=== PATIENT | male | born 1955 | race Caucasian/White ===

== ENCOUNTER 2022-03-13 14:40 | Outpatient (CLI) | payer MEDICARE, SELFPAY ==
--- NOTE | 2022-03-13 14:57 | USCV_ITS ---
sourav Castillo Leyva Age: 66 Gender: M : 1955 Exam Date: 03/13/2022 15:04 Ordering Phys: o Technologist: Miquel Marley [place] [facility] [place] [place]: CVA BP: 140 / 80 HR: 65 Rhythm: Sinus Technical Quality: Adequate MEASUREMENTS (Male / Female) Normal Values 2D ECHO LV Diastolic Diameter PLAX 5.1 cm 4.2 - 5.9 / 3.9 - 5.3 cm LV Systolic Diameter PLAX 4.5 cm IVS Diastolic Thickness 1.3 cm 0.6 - 1.0 / 0.6 - 0.9 cm IVS Systolic Thickness 1.8 cm LVPW Diastolic Thickness 1.3 cm 0.6 - 1.0 / 0.6 - 0.9 cm LVPW Systolic Thickness 1.5 cm LVOT Diameter 2.8 cm LV Ejection Fraction 2D Teich 8.4 % LV Ejection Fraction MOD 2C 38.9 % LV Ejection Fraction 2C AL 40.3 % LA Diameter 3.6 cm Aorta at Sinotubular Diameter 3.8 cm M-MODE Aortic Annulus Diameter 4.3 cm LA Ao Ratio MM 0.9 MV E Point Septal Separation 2.3 cm DOPPLER AV Peak Velocity 178.0 cm/s LVOT Peak Velocity 82.0 cm/s AV Area Cont Eq vti 3.0 cm squared AV Area Cont Eq pk 2.8 cm squared MV Area PHT 5.0 cm squared Mitral E to A Ratio 1.0 MV E' Velocity 43.5 cm/s Mitral E to MV E' Ratio 16.1 Mitral E to LV E' Lateral Ratio 16.1 Mitral E to LV E' Septal Ratio 16.4 TR Peak Velocity 224.7 cm/s TR Peak Gradient 20.2 mmHg TV Peak E Velocity 71.0 cm/s Right Atrial Pressure 3.0 mmHg Pulmonary Artery Systolic Pressu 23.2 mmHg PV Peak Velocity 88.0 cm/s FINDINGS Left Ventricle Normal left ventricular size. LV systolic function is moderate to severely reduced with EF of 30-35%. Moderate to severe global hypokinesis seen. Grade 2 diastolic dysfunction Right Ventricle The right ventricle is normal in size and function. Right Atrium The right atrium is normal in size. Left Atrium The left atrium is normal in size. Mitral Valve Structurally normal mitral valve without significant stenosis or prolapse. There is mild mitral regurgitation. Aortic Valve Aortic valve is thickened without significant stenosis. There is mild aortic regurgitation. Tricuspid Valve Structurally normal tricuspid valve without significant stenosis or regurgitation. Insufficient TR jet to calculate RVSP Pulmonic Valve Not well visualized Pericardium Normal pericardium without effusion. Aorta Ascending aorta is dilated. IVC CONCLUSIONS LV systolic function is moderate to severely reduced with EF of 30-35%. Moderate to severe global hypokinesis seen. Grade 2 diastolic dysfunction There is mild mitral regurgitation. There is mild aortic regurgitation. Ascending aorta is dilated and measures 4.11 cm in diameter. Recommend CTA to accuarately assess the size No comparison studies are available Eric Quevedo MD (Electronically Signed) Final Date: 23 Mar 2022 23:31 S
== END 2022-03-13 14:41 | disposition home or self-care (01) ==
LOC: RAD 14:47
PROVIDERS: Visit Provider Family Medicine
DX: I50.9 Heart failure, unspecified (principal)
CPT/HCPCS: 93306

== ENCOUNTER → 2022-06-03 10:01 | Outpatient (BNVA) | payer MEDICARE, SELFPAY | PROVIDERS: PCP Family Medicine; Visit Provider Internal Medicine Cardiovascular Disease | DX: I11.0 Hypertensive heart disease with heart failure (principal); I50.9 Heart failure, unspecified; Z82.49 Family history of ischemic heart disease and other diseases of the circulatory system; Z87.891 Personal history of nicotine dependence | CPT/HCPCS: 99204 ==

== ENCOUNTER 2022-06-24 14:18 | Outpatient (CLI) | payer MEDICARE, SELFPAY ==
[2022-06-24 14:48] LABS: Basophils # 0.1 10^3/uL (0.0-0.1); Basophils % 0.5 %; Eosinophils # 0.3 10^3/uL (0.0-0.8); Eosinophils % 2.8 %; Hematocrit 46.3 % (42.0-52.0); Hemoglobin 15.1 g/dL (11.7-16.6); Lymphocytes % 10.4 %; Mean Corpuscular HGB Conc 32.6 g/dL (30.0-36.0); Monocytes # 0.8 10^3/uL (0.2-0.9); Monocytes % 7.9 %; Neutrophils % 77.6 %; Nucleated Red Blood Cells % 0 %; Platelet Count 255 10^3/cmm (130-400); Red Blood Count 5.03 10^6/uL (4.1-5.3); Red Cell Distribution Width 13.2 % (12.1-15.1); White Blood Count 9.7 10^3/uL (4.0-10.0)
[2022-06-24 14:54] LABS: INR 0.89 (0.83-1.21); Prothrombin Time (Patient) 12.3 Seconds (12.0-15.1)
[2022-06-24 15:15] LABS: Anion Gap 17.7 (5-19); Blood Urea Nitrogen 28 mg/dL (8-23); Carbon Dioxide 23 mmol/L (22-29); Chloride 104 mmol/L (98-107); Glomerular Filtration Rate 55.4 mL/min (90-130); Glucose 137 mg/dL (65-115); NT Pro B Type Natriuretic Pept 206 pg/mL (0-125); Osmolality Calculated 298 mOsm/kg (285-295); Potassium 4.7 mmol/L (3.5-5.1); Sodium 140 mmol/L (136-145)
== END 2022-06-24 14:19 | disposition home or self-care (01) ==
LOC: LAB 14:22
PROVIDERS: PCP Family Medicine; Visit Provider Internal Medicine Cardiovascular Disease
DX: I10 Essential (primary) hypertension (principal); I50.9 Heart failure, unspecified
CPT/HCPCS: 36415; 80048; 83735; 83880; 85025; 85610

== ENCOUNTER 2022-06-27 08:44 | Outpatient (CLI) | payer MEDICARE, SELFPAY ==
[2022-06-27] VITALS (14 sets, daily range): BP systolic 115–139; BP diastolic 63–95; PULSE 46–68; RESP 13–20; TEMP 36.7; O2SAT 85–100; BMI 26.6
--- NOTE | 2022-06-27 09:19 | XACV_ITS ---
Exam Room: 2 Ht: 183 cm Wt: 89 kg BSA: 2.14 m2 Gender: Male : 1955 Any Known Allergies: No known allergies Exam Priority: Routine Procedure(s): Procedure Description: Diagnostic procedure Procedure Description: Right Heart Catheterization Procedure Description: O2 saturation Procedure Description: Coronary Angiography Diagnostic Cath Status: Elective Diagnostic Findings * Coronary angiography shows right dominance. * Normal left main with no disease. * Normal circumflex with minor irregularities. * Severe 80% proximal LAD stenosis. VONNIE 3 flow. * Moderate 60 stenosis in posterior descending artery. TIMI3 flow. M * inor irregularities in proximal and mid right coronary artery. * Case was discussed and images were reviewed with Dr. Kaur. Decision was made to proceed with stenting of proximal LAD lesion later today. Conclusions 1. Severe 80% proximal LAD stenosis. VONNIE 3 flow. 2. Moderate 60% stenosis in posterior descending artery. 3. Mild pre capillary pulmonary hypertension with mPAP of 27 mm Hg. PVR 2 LIANG and DPG<7 mm Hg. 4. Case was discussed and images were reviewed with Dr. Kaur. Decision was made to proceed with stenting of proximal LAD lesion later today. Recommendations * Plan to load with plavix 600 mg. * Statin and aspirin 81mg lifelong, if tolerated. * Return to inpatient for close monitoring and routine cath care. Pressures Phase:Rest AO : 136 / 66 ( 92 ) @ 11:22:00 AM 144 / 73 ( 99 ) @ 11:25:00 AM 124 / 81 ( 101 ) @ 11:32:00 AM 126 / 78 ( 104 ) @ 11:40:00 AM RV : 40 / 8 / 14 @ 10:52:00 AM PA : 40 / 16 ( 27 ) @ 10:53:00 AM RA : a wave = 17 v wave = 15 mean = 13 @ 10:51:00 AM PCW : a wave = 17 v wave = 16 mean = 15 @ 10:53:00 AM a wave = 16 v wave = 16 mean = 15 @ 10:53:00 AM Hemodynamic Findings Right atrial pressures are elevated at 13 mmHg. Mild pulmonary hypertension with PAP of 40/16, mean PAP 27 mm Hg. Pulmonary vascular resistance of 2 LIANG. Pulmonary artery wedge pressures is upper normal at 15 mm Hg. Cardiac output by Connie method is normal. No evidence of step up in saturations. O2 Content Phase:Rest PA : O2 Content O2: 78.5 @ 11:40:00 AM Saturations Phase:Rest AO : 97 @ 11:32:00 AM RA : 74 @ 11:25:00 AM RV : 77 @ 11:22:00 AM PA : 79 @ 11:40:00 AM Cardiac Output Phase:Rest Connie : 6 @ 10:51:09 AM Connie Cardiac Index: 3 @ 10:51:09 AM Flow Phase:Rest Qp : 6 @ 10:51:09 AM Qs : 5 @ 10:51:09 AM Clinical Evaluation EBL: 5mL-10mL Procedural Details Pre-Procedure Time Out. Identified patient by full name and date of as verbalized by the patient/guarantor. Does the consent match the physician's order: Yes. Accurate & Complete Informed Consent: Yes. Inpatient/Outpatient History & Physical on Chart: Yes. If H&P is completed, is and addenduem needed: No; If yes, is the addendum complete: N/A. Visualize and Verify Site with Patient/Guarantor: N/A. Relevant Radiology Images available: Yes. Pre-op teaching completed and patient verbalized understanding. The risks, benefits, and alternatives of sedation and/or procedure were discussed by physician. The patient agrees to continue. Procedure started. [facility] Clinical Fraility Score: 3: Managing Well. Installation Engineer Indications: Other. Correct patient, site and procedure confirmed by cath team. PERRLA. Strong, equal hand slag motor operator bilaterally. Lungs clear x 5 lobes. IV Site on Arrival: Saline Lock. A 20 gauge IV was started in the right anticubital using aseptic technique. A 20 gauge IV was started in the left anticubital using aseptic technique. IV Fluids: 0.9% NaCl at KVO. 0 mL infused prior to dentures lab technician. Pre Procedural Pulses: bilateral dorsalis pedis was 3+. Pre Procedural Pulses: bilateral radial was 3+. right groin was prepped with chloroprep then draped in the usual sterile fashion. right radial was prepped with chloroprep then draped in the usual sterile fashion. right brachial was prepped with chloroprep then draped in the usual sterile fashion. Physician arrived. Physician scrubbed in. Immediate Pre-Procedure Time Out. Correct Patient: Yes; Correct Procedure: Yes; Correct Site: Yes; Correct Patient Position: Yes; Correct Supplies: Yes; Dried Flammable Prep: Yes; Blood Products Available: N/A;. Lidocaine 1% infiltrated to the right brachial. sheath wire inserted through the IV catheter. IV catheter out OTW. [place]-Sabrina MON catheter inserted. 0.025 wire inserted through the swan catheter. wire out. Oximetry samples were obtained. Normal venous range: 60-85%. Normal arterial range: 95-100%. Pressure measurements obtained. [place]-Sabrina out. Lidocaine 1% infiltrated to the right radial. Arterial access obtained. wire and needle out. Arterial access obtained. wire and needle out. Unable to obtain radial access. MD attempting to gain access in the Femoral artery. TR band placed. Hemostasis obtained. Lidocaine 1% infiltrated to the right groin. Arterial access obtained. wire and needle out. Arterial access obtained. A 5 australian JL4 catheter in over wire. Catheter out. A 5 australian JL5 catheter in over wire. Multiple views taken of left coronary artery. Catheter removed over the standard wire. Dr. Kaur called to review films. A 5 australian JR4 catheter in over wire. Multiple views taken of right coronary artery. Catheter removed over the standard wire. Vital chart was stopped. A Suture was successful obtaining hemostatsis at the Right Femoral artery insertion site. A Manual Compression was successful obtaining hemostatsis at the Right Brachial Vein insertion site. Sheath(s) sutured into position with 2-0 silk and sterile 4x4's and Op-site applied over the site. No oozing or signs and symptoms of hematoma noted. Arterial sheath flushed and connected to tranducer and pressure bag with heparinized saline. Post Procedure: Pulses reassessed and unchanged. PERRLA. Strong, equal hand slag motor operator bilaterally. No VTE prophylaxis required. Medication's Wasted: Heparin = 4000 units. Total IV fluids: 95 mL. Post-op diagnosis: CAD. Complications: None. Estimated blood loss: 5mL-10mL. Responsiveness - Normal response to verbal stimuli; alert and oriented, PERRLA. Airway - Unaffected, no intervention required; spontaneous ventilation. Circulation: W/N/L, pulses unchanged. Nausea/Vomiting: No. Procedure completed. Patient transferred by bed to ICU. Access Site Site: Right Brachial Vein Sheath Size: 6 Fr Hemostasis Method: Manual Compression Hemostasis Success: Successful Site: Right Femoral artery Sheath Size: 6 Fr Hemostasis Method: Suture Hemostasis Success: Successful Procedure Medications Start: 9:32 AM Stop: 9:32 AM Medication: Versed 1 mg and Fentanyl 25 mcg Amount: 1 Route: I.V. Start: 10:00 AM Stop: 10:00 AM Medication: Versed Amount: 1 mg Route: I.V. Start: 10:43 AM Stop: 10:43 AM Medication: Versed Amount: 1 mg Route: I.V. I, the attending physician, have reviewed and verified all procedure medications. Yes, all medications given per verbal order History/Risk Factors Hypertension: Yes Dyslipidemia: No Peripheral Arterial Disease (PAD): No Myocardial Infarction (ID): No Obesity: No Renal Disease: No Tobacco Use: Former Prior Interventions PCI: No CABG: No Valve Surgery: No Report Signatures Finalized by Radha Nation MD on 07/10/2022 12:26 PM
--- NOTE | 2022-06-27 09:36 | W.PM.OPSUD ---
Surgery/Procedure H&P Update DATE OF PROCEDURE: June 27, 2022 DATE H&P PERFORMED: 06/03/22 H&P UPDATE INFORMATION: I have reviewed H&P completed within last 30 days, I have examined patient prior to procedure and No changes to prior documentation PREOP DIAGNOSIS: Newly diagnosed cardiomyopathy PRIMARY INDICATION FOR PROCEDURE: Newly diagnosed cardiomyopathy PLANNED PROCEDURE: Operation Date: 06/27/22 08:30 Proposed Procedures p [facility] w/wo [id number],I50.90(Left) - Radha Nation MD PATIENT REASSESSED PRIOR TO SEDATION, WITH NO CHANGE NOTED: Yes PHYSICAL EXAM: alert, oriented x 3, clear to auscultation bilaterally and regular rate & rhythm AIRWAY EVAL/ANESTHESIA PLAN: normal airway, ASA III, Monitored Anesthesia, Local Anesthesia, Risks, benefits & alternatives of sedation and/or procedure discussed and Patient agrees to continue as planned
[2022-06-27 10:28] LABS: ABG PCO2 43.5 mmHg (35-45); ABG PH Result 7.37 (7.35-7.45); Blood Gas Operator Identificat CAK; Blood Gas Sample Type Not specified; PO2 ABG 40.9 mmHg (80.0-100.0)
[2022-06-27 10:30] LABS: ABG PCO2 39.9 mmHg (35-45); ABG PH Result 7.38 (7.35-7.45); Arterial Blood Gas Hematocrit 36.8 % (42-52); Base Excess ABG -1.5 mmol/L (-2.0-2.0); Blood Gas Operator Identificat CAK; Blood Gas Sample Type Not specified; HCO3 ABG 23.5 mmol/L (22-26); PO2 ABG 80.4 mmHg (80.0-100.0)
[2022-06-27 10:31] LABS: ABG PCO2 44.3 mmHg (35-45); ABG PH Result 7.37 (7.35-7.45); Blood Gas Operator Identificat CAK; Blood Gas Sample Type Not specified; HCO3 ABG 25.6 mmol/L (22-26); PO2 ABG 36.8 mmHg (80.0-100.0)
[2022-06-27 10:33] LABS: ABG PH Result 7.37 (7.35-7.45); Blood Gas Operator Identificat CAK; Blood Gas Sample Type Not specified; HCO3 ABG 23.2 mmol/L (22-26); PO2 ABG 39.2 mmHg (80.0-100.0)
--- NOTE | 2022-06-27 11:22 | PC.NURSE ---
Arrived from director of cardiac cath lab, R groin sheath to stay in place until intervention can be performed. R wrist TR band site dr and intact with 10 ml air
[2022-06-27] MEDS: aspirin 81 mg Chew Tablet 324 MG PO (11:33)
[2022-06-27] MEDS: clopidogrel 300 mg Tablet 600 MG PO (11:33)
--- NOTE | 2022-06-27 12:57 | PC.NURSE ---
Dr. Nation called, gave t.o. to hold IV fluids until after the cath and may place buckner if needed
--- NOTE | 2022-06-27 13:57 | XACV_ITS ---
Exam Room: [facility] Ht: 183 cm Wt: 89 kg BSA: 2.14 m2 Gender: Male : 1955 Any Known Allergies: No known allergies Exam Priority: Routine Procedure(s): Procedure Description: Diagnostic procedure Procedure Description: Coronary Angiography Diagnostic Cath Status: Elective Diagnostic Findings * Coronary angiography had been performed earlier today by Dr. Nation. A significant proximal LAD lesion was identified and it was requested he undergo intervention. I took a few more views in order to better delineate the lesion. There is a 80% proximal LAD stenosis. PCI Status: Elective PCI LVEF Assessed: No PCI Indication: New Onset Angina <= 2 months Interventional Findings * The LAD was primarily stented with a 3.5 x 12 mm drug eluting stent. Decision for PCI with Surgical Consult: No PCI for Multi-vessel Disease: No Conclusions 1. Proximal LAD stent. Recommendations * Medical therapy. Interventional RX Recommendation: medical therapy and/or counseling Diagnostic RX Recommendation: medical therapy and/or counseling Anticoagulation: Heparin Pressures Phase:Rest AO : 94 / 50 ( 67 ) @ 3:24:00 PM Clinical Evaluation EBL: 5mL-10mL Procedural Details Procedure Consent Obtained. Pre-Procedure Time Out. Identified patient by full name and date of as verbalized by the patient/guarantor. Does the consent match the physician's order: Yes. Accurate & Complete Informed Consent: Yes. Inpatient/Outpatient History & Physical on Chart: Yes. If H&P is completed, is and addenduem needed: N/A; If yes, is the addendum complete: N/A. Visualize and Verify Site with Patient/Guarantor: N/A. Relevant Radiology Images available: Yes. Pre-op teaching completed and patient verbalized understanding. The risks, benefits, and alternatives of sedation and/or procedure were discussed by physician. The patient agrees to continue. Procedure started. [facility] Clinical Fraility Score: 3: Managing Well. Salvage Clerk Indications: Worsening Angina. Chest Pain Symptom Assessment: Typical Angina Symptoms. Correct patient, site and procedure confirmed by cath team. PERRLA. Strong, equal hand palliative nurse bilaterally. Lungs clear x 5 lobes. Current diagnosis: Chest Pain. IV Site on Arrival: 20 gauge in the left anticubital. IV Fluids: 0.9% NaCl at KVO. 300 mL infused prior to molder labels. Pre Procedural Pulses: bilateral dorsalis pedis was 1+. Oxygen started at 2liters/min via nasal canula. right groin was prepped with chloroprep then draped in the usual sterile fashion. Physician notified. Baseline sample Acquired. HR: 85 BPM. Physician arrived. Physician scrubbed in. Immediate Pre-Procedure Time Out. Correct Patient: Yes; Correct Procedure: Yes; Correct Site: Yes; Correct Patient Position: Yes; Correct Supplies: Yes; Dried Flammable Prep: Yes; Blood Products Available: N/A;. Lidocaine 1% infiltrated to the right groin. Patient arrived with 6 Fr sheath sutured in R groin. 6 greek XB 3 guide catheter was inserted over the wire. Guide catheter out. 6 greek XB 3.5 guide catheter was inserted over the wire. Guide catheter out. 6 greek XB 4.5 guide catheter was inserted over the wire. [place] guidewire was advanced through the guide catheter to lesion in the prox LAD. Inflation Number : 1 Vesna Baltazar MORENA 3.5X12 NEIL -Lot Number# [id number] Exp 09/03/24 was prepped and advanced across the Prox LAD. The stent was deployed at 14 AJ for 0:29 seconds. Results checked. Stent balloon out over wire. Wire out. Guide catheter out. A Suture was successful obtaining hemostatsis at the Right Femoral artery insertion site. Post Procedure: Pulses reassessed and unchanged. Sheath(s) sutured into position with 2-0 silk and sterile 4x4's and Op-site applied over the site. No oozing or signs and symptoms of hematoma noted. PERRLA. Strong, equal hand palliative nurse bilaterally. No VTE prophylaxis required. Medication's Wasted: Lidocaine 1% = 2 mL. Medication's Wasted: Heparin = 1000 u. Total IV fluids: 50 mL. Post-op diagnosis: Obstructive CAD. Complications: none. Estimated blood loss: 5mL-10mL. Responsiveness - Normal response to verbal stimuli; alert and oriented, PERRLA. Airway - Unaffected, no intervention required; spontaneous ventilation. Circulation: W/N/L, pulses unchanged. Nausea/Vomiting: No. Procedure completed. Patient transferred by bed to ICU. Vital chart was stopped. Access Site Site: Right Femoral artery Sheath Size: 6 Fr Hemostasis Method: Suture Hemostasis Success: Successful Procedure Medications Start: 2:13 PM Stop: 2:13 PM Medication: Versed Amount: 1 mg Route: I.V. Start: 2:14 PM Stop: 2:14 PM Medication: Fentanyl Amount: 50 mcg Route: I.V. Start: 2:17 PM Stop: 2:17 PM Medication: Heparin Amount: 5000 units Route: I.V. Start: 2:17 PM Stop: 2:17 PM Medication: 0.9% Saline Amount: 75 ml/hr Route: I.V. drip Start: 2:33 PM Stop: 2:33 PM Medication: Versed Amount: 1 mg Route: I.V. Start: 2:33 PM Stop: 2:33 PM Medication: Fentanyl Amount: 50 mcg Route: I.V. I, the attending physician, have reviewed and verified all procedure medications. Yes, all medications given per verbal order History/Risk Factors Hypertension: Yes Dyslipidemia: No Peripheral Arterial Disease (PAD): No Myocardial Infarction (MO): No Obesity: No Renal Disease: No Tobacco Use: Former Prior Interventions PCI: No CABG: No Valve Surgery: No Report Signatures Finalized by Dr. Haris Kaur MD on 06/27/2022 02:59 PM
--- NOTE | 2022-06-27 14:07 | PC.NURSE ---
patient back in labor and delivery nurse at this time
--- NOTE | 2022-06-27 14:51 | PC.NURSE ---
Back from geophysical laboratory supervisor, R groin site clean dry and intact, oil laboratory analyst staff informed this nurse one stent was placed to LAD
[2022-06-27 17:10] LABS: Partial Thromboplastin Time 55.7 SECONDS (23.9-36.7)
[2022-06-27 18:13] LABS: Partial Thromboplastin Time 34.2 SECONDS (23.9-36.7)
--- NOTE | 2022-06-27 19:28 | PC.NURSE ---
Sheath pulled, Med hematoma formed, site marked. Dr. Nation was notified. order to restart held IV fluids per DEC, if patient sob or signs of fluid over load shut fluids off.
[2022-06-27] MEDS: sodium chloride 0.9% 1,000 ML 100 ML IV (19:49)
[2022-06-28 06:00] VITALS: PULSE 54
[2022-06-28 07:33] LABS: Basophils # 0.1 10^3/uL (0.0-0.1); Basophils % 0.8 %; Eosinophils # 0.2 10^3/uL (0.0-0.8); Eosinophils % 3.8 %; Hematocrit 40.8 % (42.0-52.0); Hemoglobin 13.1 g/dL (11.7-16.6); Lymphocytes # 0.8 10^3/uL (0.8-4.8); Lymphocytes % 13.7 %; Mean Corpuscular HGB Conc 32.1 g/dL (30.0-36.0); Mean Corpuscular Hemoglobin 30.3 pg (28.0-34.0); Mean Corpuscular Volume 94.4 fl (80-94); Mean Platelet Volume 9.8 fL (7.4-10.4); Monocytes # 0.8 10^3/uL (0.2-0.9); Monocytes % 12.4 %; Neutrophils # 4.19 10^3/uL (1.8-7.7); Neutrophils % 69.1 %; Nucleated Red Blood Cells % 0 %; Platelet Count 240 10^3/cmm (130-400); Red Blood Count 4.32 10^6/uL (4.1-5.3); Red Cell Distribution Width 13.3 % (12.1-15.1); White Blood Count 6.1 10^3/uL (4.0-10.0)
[2022-06-28 07:54] LABS: Anion Gap 13.8 (5-19); Blood Urea Nitrogen 24 mg/dL (8-23); Calcium 8.6 mg/dL (8.5-10.5); Carbon Dioxide 28 mmol/L (22-29); Chloride 102 mmol/L (98-107); Glomerular Filtration Rate 50.9 mL/min (90-130); Glucose 89 mg/dL (65-115); Osmolality Calculated 292 mOsm/kg (285-295); Potassium 4.8 mmol/L (3.5-5.1); Sodium 139 mmol/L (136-145)
[2022-06-28] MEDS: clopidogrel 75 mg Tablet PO (08:51)
[2022-06-28] MEDS: aspirin 81 mg EC Tablet PO (08:51)
--- NOTE | 2022-06-28 10:26 | PC.CHAP ---
Pastoral Care Encounter/Spiritual Assessment Type of Contact [] Declined flow match sofa cutter visit [] Patient/Family/Request visit [] Outpatient visit [] Follow-up visit [] Physician referral [] Code/Alert [x] Routine visit [] Staff referral [] Actively dying [] Patient sleeping [] Family support [] [] Out of room [] Palliative care [] [] Receiving care in room [] Pre-surgical visit [] Trauma [] Long length of stay [x] ICU visit [] Other: Relational/Emotional Strength [] Patient feels connected with others/family/visitors/staff [] Distress [] Loneliness/isolation [] Abandonment Spirituality of Patient [] Person of Roberta [] Attends Yazidi of their Roberta [] Believes in Prayer [] Reads Bible or Judaism materials [] There are Spiritual issues to be addressed Safety Leader Interventions [x] Prayer [] Active listening [] Non-anxious presence [] Spiritual/emotional support [] Crisis/trauma care [] Spiritual counseling [] Bereavement support [] Provided bereavement packet [] Provided Bible/devotional materials [] Provided toy/stuffed animal, coloring book to patient or family member [] Provided Communion [] Anointing/Pillow [] Salvation [x] Completed spiritual assessment [] Other: Impact on Illness or Injury [] Angry [] Fearful [] Anxious [] Often cries [] Exhaustion [] Unable to work [] Unable to attend gnosticist [] Unable to walk/stand [] Unable to read [] Unable to drive [] Unable to eat/drink [] Unable to sleep [] Unable to be with family [] Patient intubated [] Other: Summary Time spent with patient
--- NOTE | 2022-06-28 12:00 | PC.NURSE ---
d/c pt provided with discharge information. scripts electronically sent to preferred pharmacy. site to the right groin is CDI small hematoma noted with no changes from initial assessment. No questions or concerns noted with the discharge information. Pt escorted out to personal vehicle with friend Mary Anne.
== END 2022-06-28 11:40 | disposition home or self-care (01) ==
LOC: CCL 08:44 → ICU 11:06
PROVIDERS: Internal Medicine Cardiovascular Disease; PCP Family Medicine; Visit Provider Internal Medicine Cardiovascular Disease
DX: I25.119 Atherosclerotic heart disease of native coronary artery with unspecified angina pectoris (principal); I42.9 Cardiomyopathy, unspecified; I11.0 Hypertensive heart disease with heart failure; I50.9 Heart failure, unspecified; Z82.49 Family history of ischemic heart disease and other diseases of the circulatory system
CPT/HCPCS: 36415; 80048; 82803; 83735; 85025; 85730; 93456; 96360; 99152; 99153; C1751; C1769; C1874; C1887; C1894; C9600; J1644; J2250; J3010; J3490; J7030; Q9967

== ENCOUNTER 2022-07-04 13:16 | Outpatient (CLI) | payer MEDICARE, SELFPAY ==
[2022-07-04 14:04] LABS: Anion Gap 14.6 (5-19); Blood Urea Nitrogen 26 mg/dL (8-23); Calcium 9.1 mg/dL (8.5-10.5); Carbon Dioxide 25 mmol/L (22-29); Chloride 103 mmol/L (98-107); Glomerular Filtration Rate 43.6 mL/min (90-130); Glucose 82 mg/dL (65-115); Osmolality Calculated 290 mOsm/kg (285-295); Potassium 4.6 mmol/L (3.5-5.1); Sodium 138 mmol/L (136-145)
== END 2022-07-04 13:17 | disposition home or self-care (01) ==
LOC: LAB 13:17
PROVIDERS: PCP Family Medicine; Visit Provider Nurse Practitioner Family
DX: I10 Essential (primary) hypertension (principal); I50.9 Heart failure, unspecified
CPT/HCPCS: 80048

== ENCOUNTER → 2022-07-08 13:15 | Outpatient (BNVA) | payer MEDICARE, SELFPAY | PROVIDERS: PCP Family Medicine; Visit Provider Nurse Practitioner Family | DX: I25.10 Atherosclerotic heart disease of native coronary artery without angina pectoris (principal); I11.0 Hypertensive heart disease with heart failure; I50.9 Heart failure, unspecified; Z87.891 Personal history of nicotine dependence | CPT/HCPCS: 99214 ==

== ENCOUNTER 2022-11-08 07:05 | Outpatient (CLI) | payer MEDICARE, SELFPAY ==
--- NOTE | 2022-11-08 | USCV_ITS ---
Castillo Leyva Age: 66 Gender: M : 1955 Exam Date: 11/08/2022 07:34 Ordering Phys: Radha Nation MD ([email or web address]) Technologist: [place] [facility] [place]: ? left vent function BP: 140 / 80 HR: 71 Rhythm: Sinus Technical Quality: MEASUREMENTS (Male / Female) Normal Values 2D ECHO LV Diastolic Diameter PLAX 5.8 cm 4.2 - 5.9 / 3.9 - 5.3 cm LV Systolic Diameter PLAX 4.2 cm IVS Diastolic Thickness 1.3 cm 0.6 - 1.0 / 0.6 - 0.9 cm IVS Systolic Thickness 1.7 cm LVPW Diastolic Thickness 1.2 cm 0.6 - 1.0 / 0.6 - 0.9 cm LVPW Systolic Thickness 1.7 cm LVOT Diameter 2.0 cm LV Ejection Fraction 2D Teich 52.6 % LV Ejection Fraction MOD 2C 57.3 % LV Ejection Fraction 2C AL 57.7 % LA Diameter 3.9 cm Aorta at Sinotubular Diameter 4.1 cm M-MODE Aortic Annulus Diameter 3.6 cm LA Ao Ratio MM 1.1 MV E Point Septal Separation 1.6 cm FINDINGS Left Ventricle Normal left ventricular size, systolic function and wall thickness, with no regional wall motion abnormalities. Left ventricular ejection fraction is estimated at 55 %. Right Ventricle Normal right ventricular size and systolic function. Right Atrium Normal right atrial size. Left Atrium Mildly increased left atrial size. Mitral Valve Mildly thickened mitral valve. Aortic Valve Structurally normal trileaflet aortic valve. Tricuspid Valve Structurally normal tricuspid valve. Pulmonic Valve Structurally normal pulmonic valve. Pericardium No pericardial effusion. Aorta Mildly dilated ascending aorta measuring 42 mm. IVC Inferior vena cava not visualized. CONCLUSIONS 1. Normal left ventricular size, systolic function and wall thickness, with no regional wall motion abnormalities. Left ventricular ejection fraction is estimated at 55 %. 2. When compared to study dated 03/13/22, left ventricular systolic function has improved. Radha Nation MD (Electronically Signed) Final Date: 11 November 2022 09:40 S
== END 2022-11-08 07:06 | disposition home or self-care (01) ==
PROVIDERS: PCP Family Medicine; Visit Provider Internal Medicine Cardiovascular Disease
DX: R06.02 Shortness of breath (principal)
CPT/HCPCS: 93308; 99214

== ENCOUNTER → 2023-03-26 15:32 | Outpatient (BNVA) | payer MEDICARE, SELFPAY | PROVIDERS: PCP Family Medicine; Visit Provider Internal Medicine Cardiovascular Disease | DX: I25.10 Atherosclerotic heart disease of native coronary artery without angina pectoris (principal); E78.5 Hyperlipidemia, unspecified; I11.0 Hypertensive heart disease with heart failure; I50.9 Heart failure, unspecified; Z82.49 Family history of ischemic heart disease and other diseases of the circulatory system; Z87.891 Personal history of nicotine dependence; Z79.82 Long term (current) use of aspirin | CPT/HCPCS: 99214 ==

== ENCOUNTER → 2023-06-14 16:36 | Outpatient (BNVA) | payer MEDICARE, SELFPAY | PROVIDERS: PCP Family Medicine; Visit Provider Registered Nurse Neonatal Intensive Care | DX: R30.0 Dysuria (principal); N39.0 Urinary tract infection, site not specified; R31.9 Hematuria, unspecified | CPT/HCPCS: 81000; 87077; 87086; 87184 ==

== ENCOUNTER → 2024-01-07 10:48 | Outpatient (BNVA) | payer MEDICARE, SELFPAY | PROVIDERS: PCP Family Medicine; Visit Provider Nurse Practitioner Family | DX: I11.0 Hypertensive heart disease with heart failure (principal); I50.9 Heart failure, unspecified; E78.5 Hyperlipidemia, unspecified; I25.10 Atherosclerotic heart disease of native coronary artery without angina pectoris; Z87.891 Personal history of nicotine dependence | CPT/HCPCS: 36415; 80048; 80061; 99214 ==

== ENCOUNTER → 2024-01-15 10:51 | Outpatient (BNVA) | payer MEDICARE, SELFPAY | PROVIDERS: PCP Family Medicine; Visit Provider Dermatology | DX: D48.5 Neoplasm of uncertain behavior of skin (principal); L63.1 Alopecia universalis; S60.041A Contusion of right ring finger without damage to nail, initial encounter; X58.XXXA Exposure to other specified factors, initial encounter; D18.01 Hemangioma of skin and subcutaneous tissue; L57.8 Other skin changes due to chronic exposure to nonionizing radiation | CPT/HCPCS: 11102; 69100; 99203 ==

== ENCOUNTER → 2024-02-16 08:24 | Outpatient (BNVA) | payer MEDICARE, SELFPAY | PROVIDERS: PCP Family Medicine; Visit Provider Dermatology | DX: C44.219 Basal cell carcinoma of skin of left ear and external auricular canal (principal); C44.41 Basal cell carcinoma of skin of scalp and neck | CPT/HCPCS: 13121; 15260; 17311 ==

== ENCOUNTER → 2024-02-26 11:24 | Outpatient (BNVA) | payer MEDICARE, SELFPAY | PROVIDERS: PCP Family Medicine; Visit Provider Nurse Practitioner Family | DX: Z48.02 Encounter for removal of sutures (principal) | CPT/HCPCS: 99212 ==

== ENCOUNTER → 2024-04-01 11:23 | Outpatient (BNVA) | payer MEDICARE, SELFPAY | PROVIDERS: PCP Family Medicine; Visit Provider Dermatology | DX: L57.0 Actinic keratosis (principal); L81.4 Other melanin hyperpigmentation; L57.8 Other skin changes due to chronic exposure to nonionizing radiation; Z48.817 Encounter for surgical aftercare following surgery on the skin and subcutaneous tissue | CPT/HCPCS: 17000; 99213 ==

== ENCOUNTER 2024-06-17 23:34 | Inpatient (IN) | payer MEDICARE, SELFPAY ==
[2024-06-17 23:36] VITALS: BP 155/103; PULSE 146; RESP 18; TEMP 36.5; O2SAT 96; BMI 29.8
--- NOTE | 2024-06-17 23:39 | ECG_ITS ---
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 Measurements Intervals [place] Rate: 144 P: 0 DE: 0 QRS: -57 QRSD: 95 T: 71 QT: 269 QTc: 417 Interpretive Statements ATRIAL FIBRILLATION WITH RAPID VENTRICULAR RESPONSE PATTERN CONSISTENT WITH PULMONARY DISEASE LEFT ANTERIOR FASCICULAR BLOCK [QRS AXIS <= -45, QR IN I, RS IN II] MODERATE ST DEPRESSION [0.05+ mV ST DEPRESSION] No previous ECG available for comparison Electronically Signed On 06-18-2024 11:29:00 CDT by Eric Quevedo M.D. [email or web address]
--- NOTE | 2024-06-17 23:43 | XRR_ITS ---
PROCEDURE INFORMATION: Exam: XR Chest Exam date and time: 06/17/2024 11:58 PM Age: 68 years old Clinical indication: Pain; Chest pressure; Prior surgery; Surgery date: 6+ months; Surgery type: Stents; Additional info: Chest pain tachycardia TECHNIQUE: Imaging protocol: Radiologic exam of the chest. Views: 1 view. COMPARISON: No relevant prior studies available. FINDINGS: Lungs: Unremarkable. No consolidation. Pleural spaces: Unremarkable. No pleural effusion. No pneumothorax. Heart/Mediastinum: Unremarkable. No cardiomegaly. Bones/joints: Unremarkable. XR/XR chest 1V portable 69000 IMPRESSION: No acute findings.
--- NOTE | 2024-06-17 23:44 | ED_ITS ---
HPI - Chest Pain 2 General: Chief Complaint: Chest Pain Stated Complaint: Chest Pains Time Seen by Provider: 06/17/24 23:40 History of Present Illness: Presents to the ER with a complaint of fast heart rate and chest pain radiating to his left arm. Patient said this started about 20 minutes ago at his home. He has never had this before. Patient does have a cardiac history with 1 stent placed about a year ago. Patient is currently on Plavix. Patient used to see Dr. Nation. Patient is denying any nausea vomiting diaphoresis shortness of breath. Related Data Home Medications Medication Instructions Recorded Confirmed albuterol sulfate 90 mcg/actuation 2 puff inhalation Q6H PRN 06/03/22 01/07/24 aerosol inhaler Bronchodilation lisinopril 20 mg tablet 20 mg PO DAILY 09/24/22 01/07/24 Previous Rx's Medication Instructions Recorded aspirin 81 mg tablet,delayed 81 mg PO DAILY #90 tabs 06/28/22 release furosemide 40 mg tablet 40 mg PO DAILY #90 tabs 06/28/22 nitroglycerin 0.4 mg sublingual 0.4 mg sublingual Q5M PRN Chest 06/28/22 tablet Pain #30 tabs atorvastatin 20 mg tablet 20 mg PO BEDTIME #90 tabs 12/09/22 clopidogrel 75 mg tablet 75 mg PO DAILY #90 tabs 06/03/23 sulfamethoxazole 800 1 tab PO BID 7 days #14 tabs 06/14/23 mg-trimethoprim 160 mg tablet (Bactrim DS) Allergies Allergy/AdvReac Type Severity Reaction Status Date / Time No Known Allergies Allergy Verified 01/07/24 10:53 Review of Systems 2 General: Reports: 10 or more systems reviewed and unremarkable except in HPI and below PFSH ED 2 PFSH: Medical History Dyslipidemia Atherosclerosis of coronary artery CHF (congestive heart failure) Family history of ischemic heart disease and other diseases of the circulatory system HTN (hypertension) Surgical History S/P appendectomy S/P hernia repair S/P knee surgery Family History Mother Congestive heart failure (CHF) Hypertension Father Myocardial infarction Hx of CABG Social History Smoking and tobacco/nicotine status: former use of tobacco/nicotine Physical Exam 2 Const: COMMON NORMALS: no acute distress, average body habitus, patient oriented x3, no limitations, healthy appearing, alert and well nourished HENMT: COMMON NORMALS: normocephalic, atraumatic, hearing grossly normal bilaterally, external ears normal, Normal external nose present and moist oral mucous membranes HEAD & SCALP: normocephalic and atraumatic NOSE: Normal external nose present EXTERNAL EAR: Yes external ears normal Neck/C-Spine: COMMON NORMALS: no JVD Chest: COMMONS NORMALS: normal inspection of the chest and normal palpation of entire chest wall Resp: COMMON NORMALS: normal respiratory effort, No retractions, No use of accessory muscles and clear to auscultation bilaterally AUSCULTATION: clear to auscultation bilaterally Cardio: COMMON NORMALS: no JVD, S1 normal heart sound present, S2 normal heart sound present, No gallops present (Cardio), No clicks present (Cardio), No murmurs present (Cardio) and No rub (Cardio); negative for regular rate (Irregularly irregular tachycardic rhythm) and negative for regular rhythm RATE: abnormal rate (Irregularly irregular tachycardic rhythm) RHYTHM: abnormal rhythm HEART SOUNDS: S1 normal heart sound present and S2 normal heart sound present GI: COMMON NORMALS: Normal to inspection, nondistended, normoactive bowel sounds present, Soft to palpation, non-tender, No hepatosplenomegaly present and no masses PALPATION: Yes Soft to palpation and Yes No hepatosplenomegaly present Neuro: COMMON NORMALS: patient oriented x3 SENSORIUM/ORIENTATION: Yes alert Course 2 Vital Signs: Vital signs: Vital Signs Temperature 97.7 F 06/17/24 23:36 Pulse Rate 63 06/18/24 03:04 Respiratory Rate 14 06/18/24 03:04 Blood Pressure 123/54 06/18/24 03:04 Pulse Oximetry 94 06/18/24 03:04 Oxygen Delivery Me thod Room Air 06/17/24 23:36 MDM - Chest Pain Medical Decision Making Patient given 20 mg of Cardizem IV push fluids heart rate down from the proximal 146 beats a minute to 65 beats minute this immediately made the patient feel better no chest pain 1 night. Lab work was obtained which showed initial troponin 25, 2-hour troponin come back elevated at 63.27 for delta of 38.27. Patient has been chest pain-free this entire time. UA did show patient probably has a urinary tract infection. Patient be placed on Cipro. Discussed this patient with Dr. Spring. Will place him in observation on MedSurg. Start Lovenox 1 mg/kg Differential Diagnosis Unlikely acute massive pulmonary embolism, acute respiratory failure, acute myocardial infarction, cardiac arrest or sudden cardiac Medical Records I reviewed the patient's medical records. Lab Data I reviewed the patient's lab results. 06/17/24 23:42 06/17/24 23:42 Radiology Impressions Chest X-Ray 06/17/24 23:43 IMPRESSION: No acute findings. Laboratory Results WBC 6.64 10^3/uL (3.29-11.43) 06/17/24 23:42 RBC 5.58 10^6/uL (3.85-5.65) 06/17/24 23:42 Hgb 17.10 g/dL (11.27-16.99) H 06/17/24 23:42 Hct 52.4 % (37-53) 06/17/24 23:42 MCV 93.9 fl (82-101) 06/17/24 23:42 MCH 30.6 pg (27-33) 06/17/24 23:42 MCHC 32.6 g/dL (30-55) 06/17/24 23:42 RDW 14.5 % (12.1-15.1) 06/17/24 23:42 Plt Count 205 10^3/cmm (157-399) 06/17/24 23:42 MPV 9.9 fL (7.4-10.4) 06/17/24 23:42 Neut % (Auto) 60.7 % 06/17/24 23:42 Lymph % (Auto) 21.1 % 06/17/24 23:42 [place] % (Auto) 8.7 % 06/17/24 23:42 Eos % (Auto) 8.4 % 06/17/24 23:42 Baso % (Auto) 0.8 % 06/17/24 23:42 Neut # (Auto) 4.03 10^3/uL (1.8-7.7) 06/17/24 23:42 Lymph # (Auto) 1.4 10^3/uL (0.8-4.8) 06/17/24 23:42 [place] # (Auto) 0.6 10^3/uL (0.2-0.9) 06/17/24 23:42 Eos # (Auto) 0.6 10^3/uL (0.0-0.8) 06/17/24 23:42 Baso # (Auto) 0.1 10^3/uL (0.0-0.1) 06/17/24 23:42 Nucleated RBC % (auto) 0 % 06/17/24 23:42 Nucleated RBCs # 0.0 /100WBC 06/17/24 23:42 PT 12.20 SECONDS (12.1-14.9) 06/17/24 23:42 INR 0.88 (0.8-1.2) 06/17/24 23:42 Sodium 138 mmol/L (136-145) 06/17/24 23:42 Potassium 4.6 mmol/L (3.5-5.1) 06/17/24 23:42 Chloride 102 mmol/L (98-107) 06/17/24 23:42 Carbon Dioxide 23 mmol/L (22-29) 06/17/24 23:42 Anion Gap 17.6 (5-19) 06/17/24 23:42 BUN 20 mg/dL (8-23) 06/17/24 23:42 Creatinine 1.3 mg/dL (0.7-1.2) H 06/17/24 23:42 GFR Calculation 55.1 mL/min (90-130) L 06/17/24 23:42 Glucose 159 mg/dL (65-115) H 06/17/24 23:42 Calculated Osmolality 292 mOsm/kg (285-295) 06/17/24 23:42 Calcium 9.2 mg/dL (8.5-10.5) 06/17/24 23:42 Total Bilirubin 0.3 mg/dL (0.15-1.2) 06/17/24 23:42 AST 21 U/L (0-40) 06/17/24 23:42 ALT 14 U/L (0-41) 06/17/24 23:42 Alkaline Phosphatase 84 U/L (40-130) 06/17/24 23:42 Troponin T Baseline 25 ng/L (0-15) H 06/17/24 23:42 Troponin T 120 Minute 63.27 ng/L (0-15) H 06/18/24 01:41 Delta Troponin T 38.27 ABS# (0-10) H* 06/18/24 01:41 Total Protein 7.9 g/dL (6.6-8.7) 06/17/24 23:42 Albumin 4.3 g/dL (3.5-5.2) 06/17/24 23:42 Globulin 3.6 g/dL (1.3-4.6) 06/17/24 23:42 Urine Color Yellow (Yellow) 06/18/24 00:51 Urine Appearance Cloudy (CLEAR) A 06/18/24 00:51 Urine pH 7.0 (5-7) 06/18/24 00:51 Ur Specific [place] 1.007 (1.005-1.030) 06/18/24 00:51 Urine Protein Negative (Negative) 06/18/24 00:51 Urine Glucose (UA) Negative (Normal) 06/18/24 00:51 Urine Ketones Negative (Negative) 06/18/24 00:51 Urine Blood Non-haemolysed trace (Negative) 06/18/24 00:51 Urine Nitrate Positive (Negative) A 06/18/24 00:51 Urine Bilirubin Negative (Negative) 06/18/24 00:51 Urine Urobilinogen 0.2 mg/dL (Negative) 06/18/24 00:51 Ur Leukocyte Esterase 3+ (Negative) A 06/18/24 00:51 Urine RBC 0-2 /hpf (0-2) 06/18/24 00:51 Urine WBC >100 /hpf (0-5) H 06/18/24 00:51 Ur Squamous Epith Cells 0-5 /hpf (0-5) 06/18/24 00:51 Amorphous Sediment Not Reportable 06/18/24 00:51 Urine Bacteria 4+ /hpf (NONE) H 06/18/24 00:51 Hyaline Casts 0-4 /lpf H 06/18/24 00:51 All radiology interpretation(s) finalized by discharge Discharge Plan Discharge Patient Disposition: Placed in Observation Clinical Impression: Atrial fibrillation with rapid ventricular response, Elevated troponin, Urinary tract infection Coding Level of Care Code ED Ob/Gyn for Inge Moe
[2024-06-17 23:48] LABS: Basophils # 0.1 10^3/uL (0.0-0.1); Basophils % 0.8 %; Eosinophils # 0.6 10^3/uL (0.0-0.8); Eosinophils % 8.4 %; Hematocrit 52.4 % (37-53); Lymphocytes # 1.4 10^3/uL (0.8-4.8); Lymphocytes % 21.1 %; Mean Corpuscular HGB Conc 32.6 g/dL (30-55); Mean Corpuscular Hemoglobin 30.6 pg (27-33); Mean Corpuscular Volume 93.9 fl (82-101); Mean Platelet Volume 9.9 fL (7.4-10.4); Monocytes # 0.6 10^3/uL (0.2-0.9); Monocytes % 8.7 %; Neutrophils # 4.03 10^3/uL (1.8-7.7); Neutrophils % 60.7 %; Nucleated Red Blood Cells % 0 %; Platelet Count 205 10^3/cmm (157-399); Red Blood Count 5.58 10^6/uL (3.85-5.65); Red Cell Distribution Width 14.5 % (12.1-15.1); White Blood Count 6.64 10^3/uL (3.29-11.43)
[2024-06-17] MEDS: dilTIAZem 5 mg/mL SDV 5 mL 20 MG IVP (23:55)
[2024-06-18] VITALS (34 sets, daily range): BP systolic 98–149; BP diastolic 41–78; PULSE 48–65; RESP 8–23; TEMP 36.7–36.9; O2SAT 89–97; BMI 30.2
[2024-06-18 00:02] LABS: INR 0.88 (0.8-1.2)
[2024-06-18 00:06] LABS: Troponin(5th) Baseline 25 ng/L (0-15)
[2024-06-18 00:08] LABS: Alanine Aminotransferase 14 U/L (0-41); Albumin Level 4.3 g/dL (3.5-5.2); Alkaline Phosphatase 84 U/L (40-130); Blood Urea Nitrogen 20 mg/dL (8-23); Calcium 9.2 mg/dL (8.5-10.5); Carbon Dioxide 23 mmol/L (22-29); Chloride 102 mmol/L (98-107); Creatinine Clr Calc Pharmacy 67.4439; Globulin 3.6 g/dL (1.3-4.6); Glomerular Filtration Rate 55.1 mL/min (90-130); Glucose 159 mg/dL (65-115); Osmolality Calculated 292 mOsm/kg (285-295); Sodium 138 mmol/L (136-145); Total Bilirubin 0.3 mg/dL (0.15-1.2); Total Protein 7.9 g/dL (6.6-8.7)
[2024-06-18 00:12] LABS: Anion Gap 17.6 (5-19); Aspartate Amino Transferase 21 U/L (0-40); Potassium 4.6 mmol/L (3.5-5.1)
[2024-06-18 01:16] LABS: Charge for UA Resulting for Rev
[2024-06-18 01:18] LABS: Bilirubin Urine Negative (Negative); Blood Urine Non-haemolysed trace (Negative); Glucose Urine UA Negative (Normal); Ketones Urine Negative (Negative); Leukocyte Esterase Urine 3+ (Negative); Nitrate Urine Positive (Negative); Protein Urine Negative (Negative); Specific Gravity, Urine 1.007 (1.005-1.030); Urine Appearance Cloudy (CLEAR); Urine Color Yellow (Yellow); Urobilinogen Urine 0.2 mg/dL (Negative)
--- NOTE | 2024-06-18 01:48 | ECG_ITS ---
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 Measurements Intervals [place] Rate: 61 P: 55 MA: 171 QRS: -50 QRSD: 116 T: -30 QT: 391 QTc: 395 Interpretive Statements SINUS RHYTHM WITH OCCASIONAL VENTRICULAR PREMATURE COMPLEXES PATTERN CONSISTENT WITH PULMONARY DISEASE LEFT ANTERIOR FASCICULAR BLOCK [QRS AXIS <= -45, QR IN I, RS IN II] MINIMAL ST DEPRESSION [0.025+ mV ST DEPRESSION] Compared to ECG 06/17/2024 23:39:22 Ventricular premature complex(es) now present Atrial fibrillation no longer present ST (T wave) deviation still present Electronically Signed On 06-18-2024 13:03:23 CDT by Eric Quevedo M.D. [id number]
[2024-06-18 01:49] LABS: Bacteria Urine 4+ /hpf; Hyaline Casts Urine 0-4 /lpf; RBC Urine 0-2 /hpf (0-2); Squamous Epithelial Cell Urine 0-5 /hpf (0-5); WBC Urine >100 /hpf (0-5)
[2024-06-18 01:51] LABS: Add Urine Culture? Yes
[2024-06-18 02:07] LABS: Troponin 5 2HR 63.27 ng/L (0-15)
[2024-06-18 02:12] LABS: Troponin 5 2HR Delta 38.27 ABS# (0-10)
[2024-06-18] MEDS: ciprofloxacin 500 mg Tablet PO (02:40)
[2024-06-18] MEDS: enoxaparin 100 mg/mL Syringe SUBCUT (03:31)
--- NOTE | 2024-06-18 04:17 | US_ITS ---
WS: [id number] RIGHT UPPER QUADRANT ULTRASOUND HISTORY: Check for ascites COMPARISON: None available. Ultrasound was performed of all 4 quadrants to evaluate for ascites. No ascites or free fluid is iden tified. US/US abdomen limited [id number] IMPRESSION: No peritoneal ascites identified.
--- NOTE | 2024-06-18 04:17 | USCV_ITS ---
Castillo Leyva Age: 68 Gender: M : 1955 Exam Date: 06/18/2024 10:36 Ordering Phys: Jeremiah Spring MD Technologist: Bryant Bernal Exam Location: [facility] [place] Indication: nstemi BP: 103 / 46 HR: 59 Rhythm: Sinus Technical Quality: Adequate MEASUREMENTS (Male / Female) Normal Values 2D ECHO LV Diastolic Diameter PLAX 4.0 cm 4.2 - 5.9 / 3.9 - 5.3 cm IVS Diastolic Thickness 1.8 cm 0.6 - 1.0 / 0.6 - 0.9 cm IVS Systolic Thickness 2.0 cm LVPW Diastolic Thickness 1.9 cm 0.6 - 1.0 / 0.6 - 0.9 cm LVPW Systolic Thickness 2.4 cm LV Ejection Fraction 2D Teich 56.4 % LV Ejection Fraction MOD 4C 67.9 % LV Ejection Fraction MOD 2C 51.7 % LV Ejection Fraction 2C AL 53.2 % LA Diameter 4.2 cm RA Systolic Volume 4C AL 44.9 ml RA Systolic Volume 4C MOD 44.0 ml LA Sys Volume AL 49.6 cm cubed LA Sys Volume Index AL 23.3 cm cubed/m squared Aorta at Sinotubular Diameter 4.0 cm IVC Diameter 1.9 cm M-MODE LA Ao Ratio MM 1.0 AV Cusp Separation MM 2.6 cm DOPPLER AV Peak Velocity 123.0 cm/s LVOT Peak Velocity 69.0 cm/s MV Peak Velocity 72.0 cm/s MV Area PHT 3.5 cm squared Mitral E to A Ratio 0.5 TV Peak Velocity 252.0 cm/s TR Peak Velocity 254.0 cm/s TR Peak Gradient 25.8 mmHg TR Mean Velocity 195.0 cm/s TR Mean Gradient 16.9 mmHg TR Velocity Time Integral 98.7 cm PV Peak Velocity 67.3 cm/s RV Ejection Time 0.3 s FINDINGS Left Ventricle Mild diffuse hypokinesia of the left ventricular ejection fraction of 50 to 55%. Mild Cardizem relative hypertrophy.Grade I/IV diastolic dysfunction (abnormal relaxation filling pattern), normal to mildly elevated filling pressures. Right Ventricle Normal right ventricular systolic function. Right Atrium The right atrium is normal in size. Left Atrium The left atrium is normal in size. Mitral Valve Mild mitral valve regurgitation. Moderate mitral annular calcification. Aortic Valve Minimally thickened aortic valve Tricuspid Valve Trace to mild tricuspid valve regurgitation. Estimated pulmonary artery peak systolic pressure within normal limits Pulmonic Valve Pulmonic valve not well visualized. Pericardium Normal pericardium without effusion. Aorta Mildly dilated aortic root measuring so 4.05 cm just above the level of the isthmus IVC The inferior vena cava appears normal. CONCLUSIONS Mild diffuse hypokinesia of the left ventricular ejection fraction of 50 to 55%. Mild Cardizem relative hypertrophy.Grade I/IV diastolic dysfunction (abnormal relaxation filling pattern), normal to mildly elevated filling pressures. Mild mitral valve regurgitation. Moderate mitral annular calcification. Minimally thickened aortic valve. Trace to mild tricuspid valve regurgitation. Estimated pulmonary artery peak systolic pressure within normal limits. Mildly dilated aortic root measuring so 4.05 cm just above the level of the isthmus. There is no pericardial effusion. There are no intracardiac masses. Compared to the study from 11/08/2022, there may not be a significant change Dr Alejandro Granda MD FAC (Electronically Signed) Final Date: 18 June 2024 12:53 S
--- NOTE | 2024-06-18 04:36 | P.HP_ITS ---
Providers/Chief Complaint 2 Admitting Physician: Jeremiah Spring Primary Care Provider: Antonio Lujan MD Chief Complaint: Chest Pains History of Present Illness Pleasant 68-year-old gentleman with history of CAD, coronary artery stenting, CHF, previously cardiomyopathy but with improvement, HTN, HLD, Cisneros's palsy started experiencing palpitations and chest pain last night. Came in with tachycardia, found to be in new onset A-fib with RVR heart rate in 140s. Received a dose of diltiazem, converting into sinus rhythm. Troponin with elevation at 2 hours with positive delta baseline 25, 2 R63.27. Chest pain so far has abated with return to sinus rhythm. Urine with more than 100 WBC, cloudy, positive nitrite. He is feeling bloated and feels that it is contributing to shortness of breath. Review of Systems 2 Const: Denies: fever(s), chills, body aches or malaise ENMT: Denies: throat pain Card: Reports: chest pain, palpitations and irregular heart rhythm; Denies: edema or pre-syncope Resp: Denies: dyspnea, productive cough, change in phlegm color or hemoptysis GI: Reports: bloating; Denies: abdominal pain, nausea, vomiting, diarrhea, constipation, hematochezia or melena : Denies: flank pain, difficulty urinating, urinary frequency or hematuria Musc: Denies: back pain, joint swelling or joint redness Skin/Breast: Denies: rash or new lesions Neuro: Denies: headache(s) Medications/Allergies Home Medications Medication Instructions Recorded Confirmed Last Taken Type albuterol sulfate 90 mcg/actuation 2 puff inhalation Q6H PRN 06/03/22 06/18/24 Unknown History aerosol inhaler Bronchodilation aspirin 81 mg tablet,delayed 81 mg PO DAILY #90 tabs 06/28/22 06/18/24 Unknown Rx release furosemide 40 mg tablet 40 mg PO DAILY #90 tabs 06/28/22 06/18/24 06/27/22 07:30 Rx nitroglycerin 0.4 mg sublingual 0.4 mg sublingual Q5M PRN Chest 06/28/22 06/18/24 Unknown Rx tablet Pain #30 tabs lisinopril 20 mg tablet 10 mg PO DAILY 09/24/22 06/18/24 Unknown History clopidogrel 75 mg tablet 75 mg PO DAILY #90 tabs 06/03/23 06/18/24 Unknown Rx Allergies Allergy/AdvReac Type Severity Reaction Status Date / Time No Known Allergies Allergy Verified 01/07/24 10:53 PFSH Acute 2 PFSH: Medical History Dyslipidemia Atherosclerosis of coronary artery CHF (congestive heart failure) Family history of ischemic heart disease and other diseases of the circulatory system HTN (hypertension) Surgical History S/P appendectomy S/P hernia repair S/P knee surgery Family History Mother Congestive heart failure (CHF) Hypertension Father Myocardial infarction Hx of CABG Social History Smoking and tobacco/nicotine status: former use of tobacco/nicotine Vitals/I&O/Wt Last Vital Signs Temp 97.7 F 06/17/24 23:36 Pulse 64 06/18/24 03:41 Resp 17 06/18/24 03:41 BP 132/78 06/18/24 03:41 Pulse Ox 95 06/18/24 03:41 O2 Del Method Room Air 06/17/24 23:36 Weight last 48 hrs Weight 101.151 kg Weight 99.79 kg Physical Exam 2 Const: COMMON NORMALS: patient oriented x3 and alert GENERAL APPEARANCE: c ooperative ORIENTATION/CONSCIOUSNESS: Yes awake HENMT: COMMON NORMALS: oropharynx normal Resp: COMMON NORMALS: normal respiratory effort and clear to auscultation bilaterally AUSCULTATION: clear to auscultation bilaterally Cardio: COMMON NORMALS: no JVD, regular rhythm, S1 normal heart sound present, S2 normal heart sound present and No murmurs present (Cardio) RHYTHM: regular rhythm HEART SOUNDS: S1 normal heart sound present and S2 normal heart sound present GI: COMMON NORMALS: Normal to inspection, nondistended, normoactive bowel sounds present, Soft to palpation and non-tender PALPATION: Yes Soft to palpation Extremity: COMMON NORMALS: no joint enlargement and no pedal edema Neuro: COMMON NORMALS: patient oriented x3 and moves all extremities Data 06/17/24 23:42 06/17/24 23:42 A&P Assessment and plan (1) Atrial fibrillation with rapid ventricular response: New onset A-fib with RVR on presentation with palpitations, chest pain, noted troponin rise. Unclear if cardiac ischemia can be triggered versus possible UTI. Does have history of CAD. Troponin with positive delta. Reviewed EKG, on my interpretation noted Q wave in V1 and V2. With T wave flattening in precordial leads and inferior leads without sign of STEMI. Pending official read. Reviewed vitals, CBC, INR, CMP, UA, chest x-ray, ER note, discussed with ER provider. A-fib did respond to 1 dose of Cardizem, he converted to sinus rhythm. At baseline he is bradycardic, heart rates in the 50s, low 60s, previously noted going down as low as 40s. At the moment unable to start him on additional medication for the atrial fibrillation. In case of additional A-fib with RVR episodes and needing control may be at risk of bradycardia as discussed with him, long-term may end up needing a pacemaker. Consider consultation with cardiology, consider cardiac monitoring after discharge. Reviewed potassium, check magnesium. Check TSH. Assess TTE. Additional workup as below for possible cardiac ischemia trigger. Respiratory viral panel. (2) Elevated troponin: Possible NSTEMI, in the setting of A-fib with RVR, history of CAD with demand ischemia versus additional new ND he does have some residual symptoms with some indigestion, bloating symptoms are rather vague. Chest pain did resolve. However, at the moment cannot exclude acute ND. Continue aspirin, Plavix, anticoagulation with Lovenox. Obtain TTE. Lexiscan stress test. Consider cardiology consultation. He also does not appear to be on a statin, not sure if he may have intolerance to if he does not would benefit from statin therapy. (3) Urinary tract infection: Ceftriaxone. Follow-up urine culture. Qualifiers: Hematuria presence: without hematuria Urinary tract infection type: a cute cystitis Qualified Code(s): N30.00 - Acute cystitis without hematuria (4) Bloating: No peripheral edema, he reports he is on furosemide, but ever since atrial fibrillation going away and chest pain resolving he has been feeling some bloating, indigestion. Abdomen does appear to be slightly distended, although I do not know his baseline. Possibility of visceral edema from congestive heart failure possibly secondary to A-fib with RVR, will check for ascites with limited ultrasound. Additionally possibility of GI symptoms from cardiac ischemia, additional assessment and management of possible NSTEMI as above. He feels that is causing him mild shortness of breath. Will also check respiratory viral panel. Attestations 2 Medical Necessity Statement*: Place in observation for additional assessment and management of new onset A-fib with RVR in a gentleman with baseline bradycardia, possible NSTEMI, UTI. Diagnoses Atrial fibrillation with rapid ventricular response I48.91 Elevated troponin R79.89 Urinary tract infection N30.00 Hematuria presence: without hematuria Urinary tract infection type: acute cystitis Bloating R14.0
--- NOTE | 2024-06-18 05:43 | ECG_ITS ---
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 Measurements Intervals [place] Rate: 53 P: 62 FL: 173 QRS: -42 QRSD: 102 T: -29 QT: 407 QTc: 383 Interpretive Statements SINUS BRADYCARDIA WITH OCCASIONAL SUPRAVENTRICULAR PREMATURE COMPLEXES IN A BIGEMINAL PATTERN LEFT AXIS DEVIATION [QRS AXIS < -30] NONSPECIFIC ST & T-WAVE ABNORMALITY Compared to ECG 06/18/2024 01:48:36 Left-axis deviation now present T-wave abnormality now present Sinus rhythm no longer present Ventricular premature complex(es) no longer present Left anterior fascicular block no longer present ST (T wave) deviation no longer present Electronically Signed On 06-18-2024 13:03:07 CDT by Eric Quevedo M.D. [id number]
[2024-06-18 05:50] LABS: Magnesium 2.1 mg/dL (1.7-2.3); Thyroid Stimulating Hormone 6.64 uIU/mL (0.27-4.20)
[2024-06-18 06:56] LABS: Adenovirus Not Detected (NOT DETECT); Chlamydia Pneumoniae Not Detected (NOT DETECT); Coronavirus 229E,HKU1,NL63,OC4 Not Detected (NOT DETECT); Human Metapneumovirus Not Detected (NOT DETECT); Human Rhinovirus/Enterovirus Not Detected (NOT DETECT); Influenza A Not Detected (NOT DETECT); Influenza A H1 Not Detected (NOT DETECT); Influenza A H1-2009 Not Detected (NOT DETECT); Influenza A H3 Not Detected (NOT DETECT); Influenza B Not Detected (NOT DETECT); Mycoplasma Pneumoniae Not Detected (NOT DETECT); Parainfluenza Virus Type 1 Not Detected (NOT DETECT); Parainfluenza Virus Type 2 Not Detected (NOT DETECT); Parainfluenza Virus Type 3 Not Detected (NOT DETECT); Parainfluenza Virus Type 4 Not Detected (NOT DETECT); Respiratory Syncytial Virus A Not Detected (NOT DETECT); Respiratory Syncytial Virus B Not Detected (NOT DETECT); SARS-COV-2 Not Detected (NOT DETECT)
--- NOTE | 2024-06-18 08:34 | P.CONIM_ITS ---
Providers/Reason For Consult 2 Consulting Physician/Specialty*: Eric Quevedo MD/ Cardiology Reason for Consult*: NSTEMI/ Atrial fibrillation Requesting Physician: Dr Spring Attending Physician: Antony Ames MD Primary Care Provider: Antonio Lujan MD History of Present Illness History of Present Illness Castillo Leyva is a 68 year old male with past medical history of CAD with prior LAD stent presented yesterday to hospital with palpitations and tachycardia. He was found to be in A-fib with RVR. Has converted back to sinus rhythm and currently in sinus bradycardia. With palpitations he had significant chest pressure. Had some heartburn after returning to sinus rhythm. Initial troponin was 25 that trended up to 220 at 6 hours. Initial EKG showed atrial fibrillation with RVR with ST depressions. Review of Systems 2 General: Reports: 10 or more systems reviewed and unremarkable except in HPI and below Medications/Allergies Home Medications Medication Instructions Recorded Confirmed Last Taken Type albuterol sulfate 90 mcg/actuation 2 puff inhalation Q6H PRN 06/03/22 06/18/24 Unknown History aerosol inhaler Bronchodilation aspirin 81 mg tablet,delayed 81 mg PO DAILY #90 tabs 06/28/22 06/18/24 Unknown Rx release furosemide 40 mg tablet 40 mg PO DAILY #90 tabs 06/28/22 06/18/24 06/27/22 07:30 Rx nitroglycerin 0.4 mg sublingual 0.4 mg sublingual Q5M PRN Chest 06/28/22 06/18/24 Unknown Rx tablet Pain #30 tabs lisinopril 20 mg tablet 10 mg PO DAILY 09/24/22 06/18/24 Unknown History clopidogrel 75 mg tablet 75 mg PO DAILY #90 tabs 06/03/23 06/18/24 Unknown Rx Allergies Allergy/AdvReac Type Severity Reaction Status Date / Time No Known Allergies Allergy Verified 01/07/24 10:53 PFSH Acute 2 PFSH: Medical History Dyslipidemia Atherosclerosis of coronary artery CHF (congestive heart failure) Family history of ischemic heart disease and other diseases of the circulatory system HTN (hypertension) Surgical History S/P appendectomy S/P hernia repair S/P knee surgery Family History Mother Congestive heart failure (CHF) Hypertension Father Myocardial infarction Hx of CABG Social History Smoking and tobacco/nicotine status: former use of tobacco/nicotine Vitals/I&O/Wt Last Vital Signs Temp 98.0 F 06/18/24 07:20 Pulse 52 L 06/18/24 07:20 Resp 17 06/18/24 07:20 BP 103/46 06/18/24 07:20 Pulse Ox 93 06/18/24 07:20 O2 Del Method Room Air 06/18/24 07:20 Weight last 48 hrs Weight 227 lb 4 oz Weight 223 lb Weight 220 lb Physical Exam 2 Narrative: GENERAL: Patient is alert, awake and oriented x3. [] NECK: No jugular vein distension. [] HEENT: No cyanosis. No icterus. No pallor. [] HEART: Regular S1 and S2. No murmur, rub or gallop. [] LUNGS: Clear to auscultate bilaterally. [] CENTRAL NERVOUS SYSTEM: Grossly nonfocal. [] EXTREMITIES: Lower extremities with no edema bilaterally. Data 06/17/24 23:42 06/17/24 23:42 A&P Assessment and plan (1) NSTEMI (non-ST elevated myocardial infarction): (2) HTN (hypertension): Qualifiers: Hypertension type: primary hypertension Qualified Code(s): I10 - Essential (primary) hypertension (3) Atrial fibrillation with rapid ventricular response: (4) Atherosclerosis of coronary artery: Qualifiers: Coronary Disease-Associated Artery/Lesion type: [place] artery [place] vs. transplanted heart: [place] heart Associated angina: without angina Qualified Code(s): I25.10 - Atherosclerotic heart disease of [place] coronary artery without angina pectoris (5) Dyslipidemia: (6) CHF (congestive heart failure): (7) Exertional shortness of breath: Plan Patient presented with atrial fibrillation with RVR. It was associated with significant chest discomfort. His troponin has trended up significantly. Findings consistent with NSTEMI. Given his prior CAD history, we will proceed with coronary angiogram with possible PCI. Risks and benefits of the procedure have been discussed. Order echocardiogram. Continue aspirin, Plavix and anticoagulation. Thank you for involving us with care of this patient. We will continue to follow. Please call with questions. Consult Attestations 2 Medical Necessity Statement: Care expected to cross 2 midnights. Coding Level of Care Code Acute Code for [facility] Fwd Diagnoses NSTEMI (non-ST elevated myocardial infarction) I21.4 Primary hypertension I10 Hypertension type: primary hypertension Atrial fibrillation with rapid ventricular response I48.91 Atherosclerosis of [place] coronary artery of [place] heart without angina pectoris I25.10 Coronary Disease-Associated Artery/Lesion type: [place] artery [place] vs. transplanted heart: [place] heart Associated angina: without angina Dyslipidemia E78.5 CHF (congestive heart failure) I50.9 Exertional shortness of breath R06.02
--- NOTE | 2024-06-18 08:44 | XACV_ITS ---
Exam Room: [facility] Ht: 183 cm Wt: 103 kg BSA: 2.31 m2 Gender: Male : 1955 Any Known Allergies: No known allergies Exam Priority: Routine Procedure(s): Procedure Description: Diagnostic procedure Procedure Description: PCI procedure Procedure Description: Drug Eluting Coronary Stent Procedure Description: PTCA Procedure Description: Miscellaneous Procedure Description: ACT Procedure Description: Coronary Angiography Diagnostic Cath Status: Urgent Diagnostic Findings * INDICATION: NSTEMI. * Left Main has no significant disease. * Circumflex has mild luminal irregularities. * Proximal LAD has a patent prior stent. Mid Left Anterior Descending: significant 80% stenosis, VONNIE: 3 flow. Medium to large sized diagonal artery has ostial pinching from prior stent. * Mid Right Coronary Artery: subtotal 99% occlusion, VONNIE: 2 flow. * Coronary angiography shows right dominance. PCI Status: Urgent PCI Indication: NSTE - ACS Interventional Findings * Procedure detail: We engaged RCA with JR 4 guide catheter. IV heparin was administered to maintain anticoagulation. With balloon support, we were able to cross subtotally occluded vessel with run-through guidewire. Stenosis was initially predilated with 2.0 x 12 mm semicompliant balloon. This was followed by predilation with 3.0 x 15 mm semicompliant balloon. We then placed 3.0 x 26 mm resolute [place] drug-eluting stent. This was postdilated with 3.75 x 15 mm NC balloon at high pressure. At this time final angiogram was performed that showed excellent stent expansion and no residual stenosis. Guidewire and guide catheter were removed. Patient left the Home Theater Experience Expert in a stable condition.. * Mid Right Coronary Artery: 99% stenosis treated with a AB MINI TREK 2.00X12 RX BALLOON, AB TREK 3.00X15 RX BALLOON, CIRO R MORENA 3.0X26 NEIL, and MDT WAQAR EUPHORA RX 3.46F20BS BALLOON. 0% residual stenosis, VONNIE: 3 flow. Conclusions 1. Critical, subtotal occlusion of mid RCA status post successful revascularization with 1 stent. Severe mid LAD stenosis. We will staged intervention to LAD and 1 week as patient has CKD.. 2. Mid Right Coronary Artery was treated with a Balloon, Balloon, Drug Eluting Stent, and Balloon. Recommendations * Triple therapy with eliquis, aspirin and plavix for 1 week. After that will continue with plavix and elquis. * Staged PCI of LAD in 1 week. * High intensity statin therapy. * Outpatient cardiology follow up in 4 weeks. Interventional RX Recommendation: PCI w/o planned CABG Diagnostic RX Recommendation: PCI w/o planned CABG Anticoagulation: Heparin Pressures Phase:Rest AO : 97 / 69 ( 81 ) @ 10:28:00 AM 106 / 73 ( 79 ) @ 10:51:00 AM Clinical Evaluation EBL: 5mL-10mL Procedural Details Procedure Consent Obtained. Current Diagnosis : Chest Pain. Pre-Procedure Time Out. Identified patient by full name and date of as verbalized by the patient/guarantor. Does the consent match the physician's order: Yes. Accurate & Complete Informed Consent: Yes. Inpatient/Outpatient History & Physical on Chart: Yes. If H&P is completed, is and addenduem needed: No; If yes, is the addendum complete: N/A. Visualize and Verify Site with Patient/Guarantor: N/A. Relevant Radiology Images available: Yes. Pre-op teaching completed and patient verbalized understanding. The risks, benefits, and alternatives of sedation and/or procedure were discussed by physician. The patient agrees to continue. Procedure started. [facility] Clinical Fraility Score: 3: Managing Well. Home Theater Experience Expert Indications: Worsening Angina. Chest Pain Symptom Assessment: Atypical Angina. Correct patient, site and procedure confirmed by cath team. Current diagnosis: Chest Pain. PERRLA. Strong, equal hand ammonia print operator bilaterally. Lungs clear x 5 lobes. IV Site on Arrival: 18 gauge in the right anticubital. IV Fluids: 0.9% NaCl at KVO. 0 mL infused prior to laboratory inspector. Oxygen started at 2liters/min via nasal canula. bilateral groins was prepped with chloroprep then draped in the usual sterile fashion. Baseline sample Acquired. HR: 39 BPM. Physician arrived. Physician scrubbed in. Immediate Pre-Procedure Time Out. Correct Patient: Yes; Correct Procedure: Yes; Correct Site: Yes; Correct Patient Position: Yes; Correct Supplies: Yes; Dried Flammable Prep: Yes; Blood Products Available: N/A;. Lidocaine 1% infiltrated to the right groin. Ultrasound being used to obtain access. Arterial access obtained with micropuncture set. Wire unable to advance. Wire and needle removed. Arterial access obtained with micropuncture set. Wire unable to advance. Wire and needle removed. Arterial access obtained with micropuncture set. Lidocaine 1% infiltrated to the right groin. A 5 nepalese JL4 catheter in over wire. Catheter removed over the standard wire. A 5 nepalese JL4.5 catheter in over wire. Multiple views taken of left coronary artery. Catheter removed over the standard wire. A 5 nepalese JR4 catheter in over wire. Multiple views taken of right coronary artery. Catheter removed over the standard wire. 6 nepalese JR 4 guide catheter was inserted over the wire. Runthrough guidewire was advanced through the guide catheter to lesion in the mid RCA. 2.0x12mm balloon inserted to lesion in the mid RCA. Inflation number : 1 A AB MINI TREK 2.00X12 RX BALLOON was prepped and advanced across the Mid RCA , then inflated to 6 AJ for 0:07 seconds. Inflation number: 2 The AB MINI TREK 2.00X12 RX BALLOON was reinflated across the Mid RCA, to 8 AJ for 0:13 seconds. Inflation number: 3 The AB MINI TREK 2.00X12 RX BALLOON was reinflated across the Mid RCA, to 10 AJ for 0:10 seconds. Balloon out. Inflation number : 4 A AB TREK 3.00X15 RX BALLOON was prepped and advanced across the Mid RCA , then inflated to 8 AJ for 0:15 seconds. Inflation number: 5 The AB TREK 3.00X15 RX BALLOON was reinflated across the Mid RCA, to 10 AJ for 0:13 seconds. Inflation number: 6 The AB TREK 3.00X15 RX BALLOON was reinflated across the Mid RCA, to 12 AJ for 0:13 seconds. Balloon out. Results checked. Inflation Number : 7 A MDT R MORENA 3.0X26 NEIL -Lot Number# _[id number] EXP: 11/17/2026 was prepped and advanced across the Mid RCA. The stent was deployed at 14 AJ for 0:21 seconds. Stent balloon out over wire. Inflation number : 8 A MDT NC EUPHORA RX 3.24L29CE BALLOON was prepped and advanced across the Mid RCA , then inflated to 20 AJ for 0:14 seconds. Inflation number: 9 The MDT NC EUPHORA RX 3.23X45HV BALLOON was reinflated across the Mid RCA, to 20 AJ for 0:09 seconds. Balloon out. Results checked. Wire redirected to the mariya branch. 1.5x8mm Balloon inserted to lesion in the mariya branch. Balloon and wire out. ACT drawn. Results out of range high seconds. Therapeutic limits - pre-heparin administration 90-150 seconds and monitoring heparin during a vascular procedure >250 seconds. Guide catheter out. A Right femoral angiogram was performed to determine safe placement of closure device. Physician scrubbed out. A Suture was successful obtaining hemostatsis at the Right Femoral artery insertion site. Sheath(s) sutured into position with 2-0 silk and sterile 4x4's and Op-site applied over the site. No oozing or signs and symptoms of hematoma noted. Arterial sheath flushed and connected to tranducer and pressure bag with heparinized saline. Post Procedure: Pulses reassessed and unchanged. PERRLA. Strong, equal hand ammonia print operator bilaterally. No VTE prophylaxis required. Medication's Wasted: Heparin = 3000 units. Total IV fluids: 150 mL. Post-op diagnosis: Stent to RCA. Complications: None. Estimated blood loss: 5mL-10mL. Responsiveness - Normal response to verbal stimuli; alert and oriented, PERRLA. Airway - Unaffected, no intervention required; spontaneous ventilation. Circulation: W/N/L, pulses unchanged. Nausea/Vomiting: No. Procedure completed. ACT drawn. Results 263 seconds. Therapeutic limits - pre-heparin administration 90-150 seconds and monitoring heparin during a vascular procedure >250 seconds. Vital chart was stopped. Patient transferred by bed to ICU. Access Site Site: Right Femoral artery Sheath Size: 6 Fr Hemostasis Method: Suture Hemostasis Success: Successful Procedure Medications Start: 9:15 AM Stop: 9:15 AM Medication: Versed Amount: 1 mg Route: I.V. Start: 9:15 AM Stop: 9:15 AM Medication: Fentanyl Amount: 50 mcg Route: I.V. Start: 9:22 AM Stop: 9:22 AM Medication: Versed Amount: 1 mg Route: I.V. Start: 9:32 AM Stop: 9:32 AM Medication: Heparin Amount: 9000 units Route: I.V. Start: 9:41 AM Stop: 9:41 AM Medication: Heparin Amount: 1000 units Route: I.V. Start: 9:49 AM Stop: 9:49 AM Medication: Fentanyl Amount: 50 mcg Route: I.V. Start: 9:49 AM Stop: 9:49 AM Medication: Heparin Amount: 1000 units Route: I.V. Start: 10:01 AM Stop: 10:01 AM Medication: Plavix Amount: 300 mg Route: P.O. I, the attending physician, have reviewed and verified all procedure medications. Yes, all medications given per verbal order History/Risk Factors Hypertension: Yes Dyslipidemia: Yes Peripheral Arterial Disease (PAD): No Myocardial Infarction (MT): No Obesity: No Renal Disease: No Tobacco Use: Former Prior Interventions PCI: Yes CABG: No Valve Surgery: No Date of PCI: 06/27/2022 Report Signatures Finalized by Eric Quevedo MD on 06/20/2024 08:24 PM
--- NOTE | 2024-06-18 09:09 | W.PM.OPSUD ---
Surgery/Procedure H&P Update DATE OF PROCEDURE: June 18, 2024 DATE H&P PERFORMED: 06/18/22 H&P UPDATE INFORMATION: I have reviewed H&P completed within last 30 days, I have examined patient prior to procedure and No changes to prior documentation PREOP DIAGNOSIS: NSTEMI PRIMARY INDICATION FOR PROCEDURE: NSTEMI PLANNED PROCEDURE: Left heart cath with possible percutaneous coronary intervention PATIENT REASSESSED PRIOR TO SEDATION, WITH NO CHANGE NOTED: Yes PHYSICAL EXAM: alert, oriented x 3, clear to auscultation bilaterally and regular rate & rhythm AIRWAY EVAL/ANESTHESIA PLAN: normal airway, ASA III, Local Anesthesia, Risks, benefits & alternatives of sedation and/or procedure discussed and Patient agrees to continue as planned ADDITIONAL INFORMATION: Moderate sedation
--- NOTE | 2024-06-18 10:01 | W.PM.EVENTAC ---
Event Note Event Note: Patient seen this morning Hemodynamic stable No active chest pain Laying supine Plan for angiogram today Change to inpatient for non-STEMI Patient is on ACS protocol Tire Builder Operator has been requested I will discontinue ciprofloxacin for NAV For his UTI I will continue ceftriaxone Patient is stating that he drives, lives alone, manages everything on his own A-fib without RVR Bradycardia noted Sick sinus syndrome? Diastolic CHF without acute exacerbation Full code Status post PCI with 1 stent mid RCA 99% critical stenosis Patient will need staged procedure for mid LAD severe lesion next week If patient remains chest pain-free can discharge home by tomorrow and then come back next week for the angiogram
[2024-06-18] MEDS: clopidogrel 75 mg Tablet PO (11:18)
[2024-06-18] MEDS: aspirin 81 mg EC Tablet PO (11:19)
[2024-06-18] MEDS: cefTRIAXone 1,000 mg SDV 1000 MG IVP (11:19)
[2024-06-18] MEDS: FUROsemide 40 mg Tablet PO (11:19)
[2024-06-18] MEDS: lisinopril 10 mg Tablet PO (11:19)
--- NOTE | 2024-06-18 12:14 | PM.MISC ---
Miscellaneous Note Purpose of Documentation: Brief procedure note Note: Critical subtotal occlusion of mid RCA s/p successful revascularization with 1 stent. Patient has severe mid LAD stenosis. We will stage intervention for next week as patient has renal dysfunction and RCA intervention was complex. Continue aspirin and plavix
[2024-06-18 16:24] LABS: Partial Thromboplastin Time 45.7 SECONDS (23.9-36.7)
--- NOTE | 2024-06-18 17:30 | PC.NURSE ---
Right groin sheath removed at 1725 and a dressing was applied to a non bleeding site. No hematoma present. Patient tolerated well.
--- NOTE | 2024-06-18 17:51 | PC.NURSE ---
Lovenox held due to pulling sheath per Dr. Ames
[2024-06-18] MEDS: sodium chloride 0.9% 1,000 ML 100 ML IV (20:09)
[2024-06-19] VITALS (20 sets, daily range): BP systolic 121–151; BP diastolic 53–83; PULSE 49–70; RESP 14–24; TEMP 36.8–36.9; O2SAT 91–97; BMI 30.6
[2024-06-19] MEDS: enoxaparin 100 mg/mL Syringe SUBCUT (03:06)
[2024-06-19 04:13] LABS: Basophils % 0.6 %; Eosinophils # 0.4 10^3/uL (0.0-0.8); Eosinophils % 5.8 %; Hematocrit 46.8 % (37-53); Lymphocytes # 0.9 10^3/uL (0.8-4.8); Lymphocytes % 14.9 %; Mean Corpuscular HGB Conc 32.1 g/dL (30-55); Mean Corpuscular Hemoglobin 31.3 pg (27-33); Mean Corpuscular Volume 97.5 fl (82-101); Mean Platelet Volume 10.2 fL (7.4-10.4); Monocytes # 0.6 10^3/uL (0.2-0.9); Monocytes % 9.4 %; Neutrophils # 4.25 10^3/uL (1.8-7.7); Nucleated Red Blood Cells % 0 %; Platelet Count 178 10^3/cmm (157-399); Red Cell Distribution Width 14.6 % (12.1-15.1); White Blood Count 6.17 10^3/uL (3.29-11.43)
[2024-06-19 04:45] LABS: Blood Urea Nitrogen 18 mg/dL (8-23); Calcium 7.9 mg/dL (8.5-10.5); Carbon Dioxide 23 mmol/L (22-29); Chloride 105 mmol/L (98-107); Creatinine Clr Calc Pharmacy 68.4699; Glomerular Filtration Rate 55.1 mL/min (90-130); Glucose 95 mg/dL (65-115); Osmolality Calculated 290 mOsm/kg (285-295); Sodium 139 mmol/L (136-145)
[2024-06-19 04:50] LABS: Anion Gap 15.2 (5-19); Potassium 4.2 mmol/L (3.5-5.1)
[2024-06-19] MEDS: sodium chloride 0.9% 1,000 ML 100 ML IV (07:01)
--- NOTE | 2024-06-19 08:05 | P.PN_ITS ---
Subjective 2 Subjective: Patient doing well. Staying in sinus rhythm. No more chest pain. Vitals/I&O/Wt Last Vital Signs Temp 98.4 F 06/19/24 04:00 Pulse 49 L 06/19/24 05:45 Resp 18 06/19/24 04:00 BP 137/79 06/19/24 04:00 Pulse Ox 92 06/19/24 04:00 O2 Del Method Room Air 06/19/24 04:00 06/18/24 06/19/24 06/19/24 22:59 06:59 14:59 Intake Total 480 / 840 1000 / 1840 0 / 0 Output Total 1000 / 1700 450 / 2150 Balance -520 / -860 550 / -310 0 / 0 Weight last 48 hrs Weight 225 lb 15.581 oz Weight 227 lb 4 oz Weight 223 lb Weight 220 lb Physical Exam 2 Narrative: GENERAL: Patient is alert, awake and oriented x3. [] NECK: No jugular vein distension. [] HEENT: No cyanosis. No icterus. No pallor. [] HEART: Regular S1 and S2. No murmur, rub or gallop. [] LUNGS: Clear to auscultate bilaterally. [] CENTRAL NERVOUS SYSTEM: Grossly nonfocal. [] EXTREMITIES: Lower extremities with no edema bilaterally. Data 06/19/24 02:42 06/19/24 02:42 A&P Assessment and plan (1) NSTEMI (non-ST elevated myocardial infarction): (2) Atrial fibrillation with rapid ventricular response: (3) Dyslipidemia: (4) Atherosclerosis of coronary artery: Qualifiers: Coronary Disease-Associated Artery/Lesion type: [place] artery [place] vs. transplanted heart: [place] heart Associated angina: without angina Qualified Code(s): I25.10 - Atherosclerotic heart disease of [place] coronary artery without angina pectoris (5) CHF (congestive heart failure): (6) HTN (hypertension): Qualifiers: Hypertension type: primary hypertension Qualified Code(s): I10 - Essential (primary) hypertension Plan Patient had critical was 99% mid RCA stenosis. Had successful revascularization with 1 stent. He has severe mid LAD stenosis that is stable looking. As patient is chest pain-free and wants to go home, can be discharged from cardiology standpoint. We will plan on staged PCI of LAD as outpatient next week. He can be discharged on triple therapy with aspirin, Plavix and Eliquis 5 mg twice daily. After intervention of LAD, we will down titrate to Eliquis and Plavix. Renal function is stable. Thank you for involving us with care of this patient. Please call with questions. Attestations 2 Medical Necessity Statement*: Care expected to cross 2 midnights. Coding Level of Care Code Acute Code for [facility] Diagnoses NSTEMI (non-ST elevated myocardial infarction) I21.4 Atrial fibrillation with rapid ventricular response I48.91 Dyslipidemia E78.5 Atherosclerosis of [place] coronary artery of [place] heart without angina pectoris I25.10 Coronary Disease-Associated Artery/Lesion type: [place] artery [place] vs. transplanted heart: [place] heart Associated angina: without angina CHF (congestive heart failure) I50.9 Primary hypertension I10 Hypertension type: primary hypertension
--- NOTE | 2024-06-19 08:30 | PC.NURSE ---
awake am breakfast served at this time alert and oriented no disress
[2024-06-19] MEDS: lisinopril 10 mg Tablet PO (09:20)
[2024-06-19] MEDS: FUROsemide 40 mg Tablet PO (09:20)
[2024-06-19] MEDS: clopidogrel 75 mg Tablet PO (09:20)
[2024-06-19] MEDS: aspirin 81 mg EC Tablet PO (09:20)
[2024-06-19] MEDS: cefTRIAXone 1,000 mg SDV 1000 MG IVP (09:20)
[2024-06-19] MEDS: water for injection-sterile 10 ML 1000 ML (09:31)
--- NOTE | 2024-06-19 10:21 | PC.NURSE ---
family upset requesting food diet order put in prior am no food brought called dietary 2nd time to get cereal
--- NOTE | 2024-06-19 11:15 | P.DS_ITS ---
Discharge Providers Date of Admission: 06/18/24 10:00 Date of Discharge: June 19, 2024 Attending Provider at Admission: Jeremiah Spring Attending Provider at Discharge: Ryan Wu MD Consults: Cardiology Primary Care Provider: Antonio Lujan MD Diagnoses at Discharge Discharge Diagnosis (1) NSTEMI (non-ST elevated myocardial infarction): Status: Acute (2) Atrial fibrillation with rapid ventricular response: Status: Acute (3) Dyslipidemia: Status: Acute (4) Atherosclerosis of coronary artery: Status: Acute Qualifiers: Associated angina: without angina Coronary Disease-Associated Artery/Lesion type: [place] artery [place] vs. transplanted heart: [place] heart Qualified Code(s): I25.10 - Atherosclerotic heart disease of [place] coronary artery without angina pectoris (5) CHF (congestive heart failure): Status: Acute (6) HTN (hypertension): Status: Acute Qualifiers: Hypertension type: primary hypertension Qualified Code(s): I10 - Essential (primary) hypertension Reason for Visit Reason for Visit: Chest Pains Hospital Course Hospital Course Castillo Leyva is a 68-year-old male with a past medical history significant for coronary artery disease, heart failure, cardiomyopathy, hypertension, hyperlipidemia, Cisneros's palsy, and multiple other comorbidities who presented with palpitations and chest pain, found to have newly diagnosed atrial fibrillation with rapid ventricular rate, NSTEMI, and acute complicated Klebsiella oxytoca urinary tract infection. Cardiology consulted and followed. He underwent cardiac catheterization which showed a 99% mid RCA stenosis successfully treated with PCI with stent placement with outstanding results. He was found to have another lesion in his LAD which will be addressed as outpatient. For his atrial fibrillation, patient converted to normal sinus rhythm. He was started on apixaban for stroke prophylaxis. His hemodynamics did not tolerate beta-yanira or calcium channel yanira due to bradycardia. His symptomatology resolved. Patient discharged home in stable condition. He will continue triple therapy with apixaban, aspirin, and Plavix for now until directed to discontinue aspirin by cardiology. Patient's UTI was treated with ceftriaxone and transition to cefdinir based upon culture and sensitivity results. Patient discharged to home in stable condition. He will continue follow-up with cardiology and PCP clinic. Physical Exam Narrative: General: Patient is awake and alert. Head: Normocephalic. Atraumatic. EOM intact. Neck: No JVD. Cardiovascular: RRR. No gallops. No murmurs. No peripheral edema. Lungs: Clear to auscultation, no use of accessory muscles, no crackles or wheezes. Skin: No jaundice. No rashes. Abdomen: Normal bowel sounds, abdomen soft and nontender. Genito Urinary: Genital exam not performed since complaints not related. Rectal: Rectal exam not performed since no symptoms indicated blood loss. Extremities: No cyanosis or clubbing. Musculoskeletal: 5/5 strength, normal range of motion, no swollen or erythematous joints. Neurological: Moves all 4 extremities. No myoclonus. Discharge Data Studies Completed and Pending Completed Studies During Hospitalization Category Date Time Status XR chest 1V portable [id number] Stat Exams 06/17/24 23:43 Completed CV. 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 Abdomen Ultrasound 06/18/24 04:17 IMPRESSION: No peritoneal ascites identified. Laboratory Results WBC 6.17 10^3/uL (3.29-11.43) 06/19/24 02:42 RBC 4.80 10^6/uL (3.85-5.65) 06/19/24 02:42 Hgb 15.00 g/dL (11.27-16.99) 06/19/24 02:42 Hct 46.8 % (37-53) 06/19/24 02:42 MCV 97.5 fl (82-101) 06/19/24 02:42 MCH 31.3 pg (27-33) 06/19/24 02:42 MCHC 32.1 g/dL (30-55) 06/19/24 02:42 RDW 14.6 % (12.1-15.1) 06/19/24 02:42 Plt Count 178 10^3/cmm (157-399) 06/19/24 02:42 MPV 10.2 fL (7.4-10.4) 06/19/24 02:42 Neut % (Auto) 69.0 % 06/19/24 02:42 Lymph % (Auto) 14.9 % 06/19/24 02:42 [place] % (Auto) 9.4 % 06/19/24 02:42 Eos % (Auto) 5.8 % 06/19/24 02:42 Baso % (Auto) 0.6 % 06/19/24 02:42 Neut # (Auto) 4.25 10^3/uL (1.8-7.7) 06/19/24 02:42 Lymph # (Auto) 0.9 10^3/uL (0.8-4.8) 06/19/24 02:42 [place] # (Auto) 0.6 10^3/uL (0.2-0.9) 06/19/24 02:42 Eos # (Auto) 0.4 10^3/uL (0.0-0.8) 06/19/24 02:42 Baso # (Auto) 0.0 10^3/uL (0.0-0.1) 06/19/24 02:42 Nucleated RBC % (auto) 0 % 06/19/24 02:42 Nucleated RBCs # 0.0 /100WBC 06/19/24 02:42 PT 12.20 SECONDS (12.1-14.9) 06/17/24 23:42 INR 0.88 (0.8-1.2) 06/17/24 23:42 APTT 45.7 SECONDS (23.9-36.7) H D 06/18/24 15:09 Sodium 139 mmol/L (136-145) 06/19/24 02:42 Potassium 4.2 mmol/L (3.5-5.1) 06/19/24 02:42 Chloride 105 mmol/L (98-107) 06/19/24 02:42 Carbon Dioxide 23 mmol/L (22-29) 06/19/24 02:42 Anion Gap 15.2 (5-19) 06/19/24 02:42 BUN 18 mg/dL (8-23) 06/19/24 02:42 Creatinine 1.3 mg/dL (0.7-1.2) H 06/19/24 02:42 GFR Calculation 55.1 mL/min (90-130) L 06/19/24 02:42 Glucose 95 mg/dL (65-115) 06/19/24 02:42 Calculated Osmolality 290 mOsm/kg (285-295) 06/19/24 02:42 Calcium 7.9 mg/dL (8.5-10.5) L 06/19/24 02:42 Magnesium 2.1 mg/dL (1.7-2.3) 06/18/24 01:41 Total Bilirubin 0.3 mg/dL (0.15-1.2) 06/17/24 23:42 AST 21 U/L (0-40) 06/17/24 23:42 ALT 14 U/L (0-41) 06/17/24 23:42 Alkaline Phosphatase 84 U/L (40-130) 06/17/24 23:42 Troponin T Baseline 25 ng/L (0-15) H 06/17/24 23:42 Troponin T 120 Minute 63.27 ng/L (0-15) H 06/18/24 01:41 Delta Troponin T 38.27 ABS# (0-10) H* 06/18/24 01:41 Troponin T Hi Sens 6Hr 220.0 ng/L (0-15) H 06/18/24 05:43 Troponin T Hi Sens 6Hr Delta 195.0 ng/L (0-12) H* 06/18/24 05:43 Total Protein 7.9 g/dL (6.6-8.7) 06/17/24 23:42 Albumin 4.3 g/dL (3.5-5.2) 06/17/24 23:42 Globulin 3.6 g/dL (1.3-4.6) 06/17/24 23:42 TSH 6.64 uIU/mL (0.27-4.20) H 06/18/24 01:41 Urine Color Yellow (Yellow) 06/18/24 00:51 Urine Appearance Cloudy (CLEAR) A 06/18/24 00:51 Urine pH 7.0 (5-7) 06/18/24 00:51 Ur Specific [place] 1.007 (1.005-1.030) 06/18/24 00:51 Urine Protein Negative (Negative) 06/18/24 00:51 Urine Glucose (UA) Negative (Normal) 06/18/24 00:51 Urine Ketones Negative (Negative) 06/18/24 00:51 Urine Blood Non-haemolysed trace (Negative) 06/18/24 00:51 Urine Nitrate Positive (Negative) A 06/18/24 00:51 Urine Bilirubin Negative (Negative) 06/18/24 00:51 Urine Urobilinogen 0.2 mg/dL (Negative) 06/18/24 00:51 Ur Leukocyte Esterase 3+ (Negative) A 06/18/24 00:51 Urine RBC 0-2 /hpf (0-2) 06/18/24 00:51 Urine WBC >100 /hpf (0-5) H 06/18/24 00:51 Ur Squamous Epith Cells 0-5 /hpf (0-5) 06/18/24 00:51 Amorphous Sediment Not Reportable 06/18/24 00:51 Urine Bacteria 4+ /hpf (NONE) H 06/18/24 00:51 Hyaline Casts 0-4 /lpf H 06/18/24 00:51 Adenovirus (PCR) Not detected (NOT DETECT) 06/18/24 05:00 C. pneumoniae DNA (PCR) Not detected (NOT DETECT) 06/18/24 05:00 Coronavirus 229E (PCR) Not detected (NOT DETECT) 06/18/24 05:00 Human Metapneumovir PCR Not detected (NOT DETECT) 06/18/24 05:00 Influenza A (H1) PCR Not detected (NOT DETECT) 06/18/24 05:00 Influ A (H1/09) PCR Not detected (NOT DETECT) 06/18/24 05:00 Influenza A (H3) PCR Not detected (NOT DETECT) 06/18/24 05:00 Influenza Type A (PCR) Not detected (NOT DETECT) 06/18/24 05:00 Influenza Type B (PCR) Not detected (NOT DETECT) 06/18/24 05:00 M. pneumoniae (PCR) Not detected (NOT DETECT) 06/18/24 05:00 Parainfluenza 1 (PCR) Not detected (NOT DETECT) 06/18/24 05:00 Parainfluenza 2 (PCR) Not detected (NOT DETECT) 06/18/24 05:00 Parainfluenza 3 (PCR) Not detected (NOT DETECT) 06/18/24 05:00 Parainfluenza 4 (PCR) Not detected (NOT DETECT) 06/18/24 05:00 RSV Type A (PCR) Not detected (NOT DETECT) 06/18/24 05:00 RSV Type B (PCR) Not detected (NOT DETECT) 06/18/24 05:00 Entero/Rhino (PCR) Not detected (NOT DETECT) 06/18/24 05:00 SARS-CoV-2 (PCR) Not detected (NOT DETECT) 06/18/24 05:00 Vitals Last Vital Signs Temp 98.4 F 06/19/24 04:00 Pulse 57 L 06/19/24 09:54 Resp 16 06/19/24 09:54 BP 122/77 06/19/24 08:00 Pulse Ox 97 06/19/24 09:54 O2 Del Method Room Air 06/19/24 09:54 Discharge Plan Discharge Patient Disposition: Home Condition: Stable Prescriptions: New apixaban 5 mg tablet 5 mg PO BID Qty: 60 1RF atorvastatin 40 mg tablet 40 mg PO QPM Qty: 30 1RF cefdinir 300 mg capsule 300 mg PO BID 5 Days Qty: 10 0RF Continued albuterol sulfate 90 mcg/actuation HFA aerosol inhaler 2 puff inhalation Q6H PRN (Reason: Bronchodilation) lisinopril 20 mg tablet 10 mg PO DAILY clopidogrel 75 mg tablet 75 mg PO DAILY Qty: 90 3RF aspirin 81 mg Tablet,Delayed Release (Dr/Ec) 81 mg PO DAILY Qty: 90 2RF nitroglycerin 0.4 mg Tablet, Sublingual 0.4 mg sublingual Q5M PRN (Reason: Chest Pain) Qty: 30 2RF furosemide 40 mg tablet 40 mg PO DAILY Qty: 90 0RF Discharge Orders: Discharge Order (Routine); Ordered 06/19/24 Ordered By: Ryan Wu Referrals: Antonio Lujan MD [Primary Care Provider] - Erendira Martinez FNP [Nurse Practitioner] - 07/01/24 1:30 pm Discharge Diet: Cardiac Discharge Activity: Resume usual activity and Increase activity as tolerated Patient Instructions: Coronary Intravascular Stent Placement (DC), Opioid Safety, Post Angiogram Home Care Instructions Activity Restrictions/Additional Instructions: 1. Take medications as prescribed. Do not miss taking antiplatelet agents rest to avoid in-stent rethrombosis. 2. No strenuous activity for 3 weeks 3. Cardiac rehab 4. PCP follow-up 5. Cardiology clinic follow-up Discharge Attestations Time Spent in Discharge Care*: greater than 30 min Status at Discharge: Overall status at discharge: patient is back to baseline Quality Metrics Clinical Quality Measures [ No reported AMI, CVA or VTE this stay] Coding Level of Care Code Acute Code for g Fwd Diagnoses NSTEMI (non-ST elevated myocardial infarction) I21.4 Atrial fibrillation with rapid ventricular response I48.91 Dyslipidemia E78.5 Atherosclerosis of [place] coronary artery of [place] heart without angina pectoris I25.10 Associated angina: without angina Coronary Disease-Associated Artery/Lesion type: [place] artery [place] vs. transplanted heart: [place] heart CHF (congestive heart failure) I50.9 Primary hypertension I10 Hypertension type: primary hypertension
== END 2024-06-19 12:30 | disposition home or self-care (01) | DRG 322 ==
LOC: ER 06-18 03:34 → MEDSURG 06-18 03:51 → ICU 06-18 11:06
PROVIDERS: Internal Medicine; Admitting Provider Internal Medicine; Emergency Provider Emergency Medicine; PCP Family Medicine; Visit Provider Internal Medicine
PROC: 027034Z Dilation of Coronary Artery, One Artery with Drug-eluting Intraluminal Device, Percutaneous Approach (ICD-10-PCS; principal; 2024-06-18 09:00)
PROC: 027034Z Dilation of Coronary Artery, One Artery with Drug-eluting Intraluminal Device, Percutaneous Approach (ICD-10-PCS; 2024-06-18 09:00)
DX: I21.4 Non-ST elevation (NSTEMI) myocardial infarction (principal); I42.9 Cardiomyopathy, unspecified; N30.00 Acute cystitis without hematuria; I25.10 Atherosclerotic heart disease of native coronary artery without angina pectoris; Z95.5 Presence of coronary angioplasty implant and graft; Z11.52 Encounter for screening for COVID-19; I11.0 Hypertensive heart disease with heart failure; I50.9 Heart failure, unspecified; E78.5 Hyperlipidemia, unspecified; G51.0 Bell's palsy; I48.91 Unspecified atrial fibrillation; Z82.49 Family history of ischemic heart disease and other diseases of the circulatory system; Z87.891 Personal history of nicotine dependence; B96.1 Klebsiella pneumoniae [K. pneumoniae] as the cause of diseases classified elsewhere
CPT/HCPCS: 36415; 71045; 76705; 80048; 80053; 81003; 81015; 83735; 84443; 84484; 85025; 85347; 85610; 85730; 87077; 87086; 87186; 87486; 87581; 87633; 93005; 93306; 93454; 96365; 96366; 96372; 96374; 96375; 96376; 99152; 99153; 99285; C1725; C1769; C1874; C1887; C1894; C9600; G0378; J0696; J1644; J1650; J2250; J3010; J3490; J7030; Q9967

== ENCOUNTER 2024-06-25 11:00 | Observation (INO) | payer MEDICARE, SELFPAY ==
--- NOTE | 2024-06-23 08:11 | PC.NURSE ---
Attempted to contact patient regarding cath procedure. No answer, voicemail left to call back for pre op instructions.
--- NOTE | 2024-06-23 09:38 | PC.NURSE ---
attempted to call patient for 2nd time, no answer.
--- NOTE | 2024-06-23 11:07 | PC.NURSE ---
Attempted to call patient for 3rd time, no answer, left message to call back for pre op instructions.
[2024-06-24] VITALS (18 sets, daily range): BP systolic 113–170; BP diastolic 63–81; PULSE 51–71; RESP 13–23; TEMP 36.2–37.1; O2SAT 90–98; BMI 30.5
--- NOTE | 2024-06-24 06:00 | XACV_ITS ---
Exam Room: 2 Ht: 183 cm Wt: 102 kg BSA: 2.30 m2 Gender: Male : 1955 Any Known Allergies: No known allergies Exam Priority: Routine Procedure(s): Procedure Description: Diagnostic procedure Procedure Description: PCI procedure Procedure Description: Drug Eluting Coronary Stent Procedure Description: PTCA Procedure Description: Miscellaneous Procedure Description: ACT Diagnostic Cath Status: Elective Diagnostic Findings * INDICATION: Staged PCI of mid LAD. Severe mid LAD stenosis. * Left Main has no significant disease. * Circumflex has no significant disease. * Right Coronary Artery not injected. This is staged PCI of LAD. For full diagnostic report, please refer to procedure report from 06/18/2024. * Mid Left Anterior Descending to Mid Left Anterior Descending: severe 80-90% stenosis, VONNIE: 3 flow. Proximal LAD has a patent prior stent. PCI Status: Elective PCI Indication: Staged PCI Interventional Findings * Procedure detail: We engaged left main artery with XB 4.0 guide catheter. IV heparin was administered to maintain anticoagulation. 0.014 run-through guidewire was used to cross the stenosis and was placed in the distal vessel. We predilated the stenosis with 2.75x15 mm NC balloon. This was followed by placement of 2.28l37ri resolute kodi drug-eluting stent. Proximal edge had haziness. We placed another overlapping 2.75 x 12 mm resolute [place] drug-eluting stent proximal to first stent. At this time final angiogram was performed that showed excellent stent expansion, no residual stenosis and VONNIE 3 flow. Guidewire and guide catheter were removed. 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 * Mid Left Anterior Descending to Mid Left Anterior Descendin% stenosis treated with a MDT NC EUPHORA RX 2.94W76MD BALLOON, MDT R KODI 2.75X26 NEIL, and MDT R KODI 2.75X12 NEIL. 0% residual stenosis, VONNIE: 3 flow. Conclusions 1. Severe mid LAD stenosis status post successful revascularization with 2 stents.. 2. Mid Left Anterior Descending to Mid Left Anterior Descending was treated with a Balloon, Drug Eluting Stent, and Drug Eluting Stent. Recommendations * Eliquis and plavix for atleast 1 year. * High intensity statin therapy. * Outpatient cardiology follow up in 2 weeks. Interventional RX Recommendation: PCI w/o planned CABG Diagnostic RX Recommendation: PCI w/o planned CABG Anticoagulation: Heparin Pressures Phase:Rest AO : 109 / 64 ( 79 ) @ 9:24:00 AM 106 / 68 ( 86 ) @ 9:28:00 AM 109 / 73 ( 91 ) @ 9:30:00 AM 89 / 66 ( 78 ) @ 9:34:00 AM 98 / 71 ( 85 ) @ 9:37:00 AM Clinical Evaluation EBL: 5mL-10mL Procedural Details Procedure Consent Obtained. Pre-Procedure Time Out. Identified patient by full name and date of as verbalized by the patient/guarantor. Does the consent match the physician's order: Yes. Accurate & Complete Informed Consent: Yes. Inpatient/Outpatient History & Physical on Chart: Yes. If H&P is completed, is and addenduem needed: No; If yes, is the addendum complete: N/A. Visualize and Verify Site with Patient/Guarantor: N/A. Relevant Radiology Images available: Yes. Pre-op teaching completed and patient verbalized understanding. The risks, benefits, and alternatives of sedation and/or procedure were discussed by physician. The patient agrees to continue. Procedure started. [facility] Clinical Fraility Score: 3: Managing Well. Coastal[employer] Defense Officer Indications: Other. Chest Pain Symptom Assessment: Typical Angina Symptoms. Correct patient, site and procedure confirmed by cath team. Current diagnosis: Chest Pain. PERRLA. 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 Lungs clear x 5 lobes. A 20 gauge IV was started in the left anticubital using aseptic technique. IV Fluids: 0.9% NaCl at KVO. 0 mL infused prior to rn labor delivery. Pre Procedural Pulses: bilateral dorsalis pedis was 3+. Pre Procedural Pulses: bilateral posterior tibial was 3+. Pre Procedural Pulses: bilateral radial was 3+. Oxygen started at 2liters/min via nasal canula. bilateral groins was prepped with chloroprep then draped in the usual sterile fashion. Hemodynamic formulas in Rest were re-calculated based on hemoglobin value from 06/24/2024 12:00:00 AM. Baseline sample Acquired. HR: 53 BPM. Physician arrived. Physician scrubbed in. Immediate Pre-Procedure Time Out. Correct Patient: Yes; Correct Procedure: Yes; Correct Site: Yes; Correct Patient Position: Yes; Correct Supplies: Yes; Dried Flammable Prep: Yes; Blood Products Available: N/A;. Lidocaine 1% infiltrated to the right groin. Arterial access obtained with micropuncture set. Wire unable to advance. Wire and needle out. Arterial access obtained with micropuncture set. 6 austrian XB 3.5 guide catheter was inserted over the wire. Guide catheter out. 6 austrian XB 4 guide catheter was inserted over the wire. Runthrough guidewire was advanced through the guide catheter to lesion in the mid LAD. Inflation number : 1 A MDT NC EUPHORA RX [id number] BALLOON was prepped and advanced across the Mid LAD , then inflated to 12 AJ for 0:11 seconds. Inflation number: 2 The MDT NC EUPHORA RX 2.68L59CF BALLOON was reinflated across the Mid LAD, to 12 AJ for 0:12 seconds. Balloon out. Inflation Number : 3 A MDT R KODI 2.75X26 NEIL -Lot Number# _[id number] EXP: 06/19/2026 was prepped and advanced across the Mid LAD. The stent was deployed at 14 AJ for 0:15 seconds. Stent balloon out over wire. Results checked. ACT drawn. Results out of range high seconds. Therapeutic limits - pre-heparin administration 90-150 seconds and monitoring heparin during a vascular procedure >250 seconds. Results checked. Inflation Number : 4 A MDT R KODI 2.75X12 NEIL -Lot Number# _[id number] EXP: 10/02/2026 was prepped and advanced across the Mid LAD. The stent was deployed at 16 AJ for 0:11 seconds. Inflation number: 5 The stent balloon was then re-inflated across the Mid LAD to 16 AJ for 0:10 seconds. Stent balloon out over wire. Wire out. Results checked. Guide catheter out. A Right femoral angiogram was performed to determine safe placement of closure device. A Suture was successful obtaining hemostatsis at the Right Femoral artery insertion site. ACT drawn. Results 349 seconds. Therapeutic limits - pre-heparin administration 90-150 seconds and monitoring heparin during a vascular procedure >250 seconds. Medication's Wasted: Nitro = 49.8 mcg. Medication's Wasted: Other = Fentanyl 50 mcg. Total IV fluids: 50 mL. Medication's Wasted: Lidocaine 1% = 10 mL. Sheath(s) sutured into position with 2-0 silk and sterile 4x4's and Op-site applied over the site. No oozing or signs and symptoms of hematoma noted. Arterial sheath flushed and connected to tranducer and pressure bag with heparinized saline. Post Procedure: Pulses reassessed and unchanged. PERRLA. 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 No VTE prophylaxis required. Post-op diagnosis: Stent to LAD. Complications: None. Vital chart was stopped. Responsiveness - Normal response to verbal stimuli; alert and oriented, PERRLA. Estimated blood loss: 5mL-10mL. Airway - Unaffected, no intervention required; spontaneous ventilation. Circulation: W/N/L, pulses unchanged. Nausea/Vomiting: No. Procedure completed. Patient transferred by bed to ICU. Access Site Site: Right Femoral artery Sheath Size: 6 Fr Hemostasis Method: Suture Hemostasis Success: Successful Procedure Medications Start: 8:12 AM Stop: 8:12 AM Medication: Plavix Amount: 75 mg Route: P.O. Start: 8:12 AM Stop: 8:12 AM Medication: Versed Amount: 1 mg Route: I.V. Start: 8:12 AM Stop: 8:12 AM Medication: Fentanyl Amount: 50 mcg Route: I.V. Start: 8:17 AM Stop: 8:17 AM Medication: Heparin Amount: 9000 units Route: I.V. Start: 8:23 AM Stop: 8:23 AM Medication: Versed Amount: 1 mg Route: I.V. Start: 8:31 AM Stop: 8:31 AM Medication: Nitrogylcerin Amount: 200 mcg Route: I.C. Start: 8:39 AM Stop: 8:39 AM Medication: Plavix Amount: 300 mg Route: P.O. I, the attending physician, have reviewed and verified all procedure medications. Yes, all medications given per verbal order History/Risk Factors Hypertension: Yes Dyslipidemia: No Peripheral Arterial Disease (PAD): No Myocardial Infarction (OK): Yes Obesity: No Renal Disease: No Prior Interventions PCI: Yes CABG: No Valve Surgery: No Date of PCI: 06/18/2024 Report Signatures Finalized by Eric Quevedo MD on 06/26/2024 03:30 PM
[2024-06-24] MEDS: aspirin 325 mg Tablet PO (06:39)
[2024-06-24] MEDS: diphenhydrAMINE 50 mg Capsule PO (06:40)
--- NOTE | 2024-06-24 06:59 | SUR.PREOP ---
pre cath fluids Dr Quevedo called. Stated to start iv fluids at 150 ml/hr pre cath. Noted and completed per verbal order. Infusing at the 150 ml/hr.
[2024-06-24 07:00] LABS: Basophils # 0.1 10^3/uL (0.0-0.1); Eosinophils # 0.4 10^3/uL (0.0-0.8); Hematocrit 45.6 % (37-53); Lymphocytes # 1.1 10^3/uL (0.8-4.8); Lymphocytes % 17.5 %; Mean Corpuscular HGB Conc 33.1 g/dL (30-55); Mean Corpuscular Hemoglobin 31.2 pg (27-33); Mean Corpuscular Volume 94.2 fl (82-101); Mean Platelet Volume 9.6 fL (7.4-10.4); Monocytes # 0.7 10^3/uL (0.2-0.9); Monocytes % 11.9 %; Neutrophils # 3.79 10^3/uL (1.8-7.7); Neutrophils % 62.1 %; Nucleated Red Blood Cells % 0 %; Platelet Count 189 10^3/cmm (157-399); Red Blood Count 4.84 10^6/uL (3.85-5.65); Red Cell Distribution Width 14.6 % (12.1-15.1); White Blood Count 6.11 10^3/uL (3.29-11.43)
[2024-06-24 07:20] LABS: Anion Gap 13.9 (5-19); Blood Urea Nitrogen 22 mg/dL (8-23); Calcium 8.1 mg/dL (8.5-10.5); Carbon Dioxide 24 mmol/L (22-29); Chloride 106 mmol/L (98-107); Creatinine Clr Calc Pharmacy 63.2835; Glomerular Filtration Rate 50.5 mL/min (90-130); Glucose 100 mg/dL (65-115); Osmolality Calculated 293 mOsm/kg (285-295); Potassium 3.9 mmol/L (3.5-5.1); Sodium 140 mmol/L (136-145)
--- NOTE | 2024-06-24 08:03 | W.PM.OPSUD ---
Surgery/Procedure H&P Update DATE OF PROCEDURE: June 24, 2024 DATE H&P PERFORMED: 06/18/24 H&P UPDATE INFORMATION: I have reviewed H&P completed within last 30 days, I have examined patient prior to procedure and Changes to prior documentation as noted here CHANGES TO PREVIOUS DOCUMENTATION: Patient had PCI of RCA performed last week when he had NSTEMI. Secondary to his renal dysfunction, plan for staged PCI of mid LAD today. Risks and benefits of the procedure discussed with patient. He understands it and wants to proceed. PREOP DIAGNOSIS: Severe mid LAD stenosis/ staged PCI of mid LAD PRIMARY INDICATION FOR PROCEDURE: Severe mid LAD stenosis/ staged PCI of mid LAD PLANNED PROCEDURE: Operation Date: 06/24/24 07:00 Proposed Procedures p Percutaneous Coronary Intervention(Left) - Eric Quevedo M.D PATIENT REASSESSED PRIOR TO SEDATION, WITH NO CHANGE NOTED: Yes PHYSICAL EXAM: alert, oriented x 3, clear to auscultation bilaterally and regular rate & rhythm AIRWAY EVAL/ANESTHESIA PLAN: normal airway, ASA III, Local Anesthesia, Risks, benefits & alternatives of sedation and/or procedure discussed and Patient agrees to continue as planned ADDITIONAL INFORMATION: Moderate sedation
--- NOTE | 2024-06-24 09:11 | PC.NURSE ---
To room 0855 via bed by Acrobatic [employer]cer team. Patient is still sedated but awakes easily. No family available.
[2024-06-24] MEDS: sodium chloride 0.9% 1,000 ML 50 ML IV (09:50)
[2024-06-24 11:18] LABS: Partial Thromboplastin Time 124.7 SECONDS (23.9-36.7)
--- NOTE | 2024-06-24 11:31 | PC.NURSE ---
Patient falling asleep and moving right leg around. Patient educated on keeping leg still for until sheath is out and 6 hours afterwards.
[2024-06-24 13:01] LABS: Partial Thromboplastin Time 44.1 SECONDS (23.9-36.7)
--- NOTE | 2024-06-24 14:05 | PC.NURSE ---
PTT resulted at 1340
--- NOTE | 2024-06-24 14:08 | PC.NURSE ---
1345 Right femoral sheath pulled by this nurse. Pressure held 15 minutes. Dressing applied. No hematoma formation. Patient again educated on leg restrictions.
[2024-06-24] MEDS: alum-mag-hydroxide-sime 30 mL UDC PO ×2 (15:06→17:24)
--- NOTE | 2024-06-24 16:35 | PC.NURSE ---
Patient complaining of gas pains, Maalox given without relief. Dr. Quevedo called for further orders. Will order EKG, Simethicon, and give 1 sublingual nitro tablet.
[2024-06-24] MEDS: nitroglycerin 0.4 mg sublingual Tablet SUBLINGUAL ×3 (16:42→17:24)
--- NOTE | 2024-06-24 16:53 | ECG_ITS ---
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 Measurements Intervals [place] Rate: 64 P: 64 [place]: 150 QRS: -44 QRSD: 105 T: -28 QT: 399 QTc: 414 Interpretive Statements SINUS RHYTHM LEFT AXIS DEVIATION [QRS AXIS < -30] PATTERN CONSISTENT WITH PULMONARY DISEASE WARNING: DATA QUALITY MAY AFFECT INTERPRETATION Compared to ECG 06/18/2024 05:42:31 Sinus bradycardia no longer present T-wave abnormality no longer present Electronically Signed On 06-25-2024 18:10:09 CDT by Alejandro Granda M.D. [email or web address]
--- NOTE | 2024-06-24 17:08 | ECG_ITS ---
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 Measurements Intervals [place] Rate: 64 P: 31 IN: 142 QRS: -48 QRSD: 108 T: -29 QT: 394 QTc: 407 Interpretive Statements SINUS RHYTHM PATTERN CONSISTENT WITH PULMONARY DISEASE LEFT ANTERIOR FASCICULAR BLOCK [QRS AXIS <= -45, QR IN I, RS IN II] NONSPECIFIC T-WAVE ABNORMALITY Compared to ECG 06/24/2024 16:53:27 Left anterior fascicular block now present T-wave abnormality now present Left-axis deviation no longer present Electronically Signed On 06-25-2024 18:10:27 CDT by Alejandro Granda M.D. [id number]
[2024-06-24] MEDS: fentaNYL 50 mcg/mL INJ 2mL 25 MCG IVP (17:23)
[2024-06-24] MEDS: simethicone 80 mg Chew PO (17:24)
--- NOTE | 2024-06-24 18:13 | PC.NURSE ---
Abdominal pain Patient given 3x sublingual nitro, 2x EKG, 25 mcg IVP F[address]anyl per Dr. Quevedo for reported abdominal and neck pain. No changes with nitro. Dr. Quevedo came to bedside to see patient. Troponins ordered. Patient also given medication for abdominal symptoms.
[2024-06-24 18:21] LABS: Troponin(5th) Baseline 52 ng/L (0-15)
[2024-06-24 20:11] LABS: Troponin 5 2HR 51.38 ng/L (0-15)
[2024-06-24 20:12] LABS: Troponin 5 2HR Delta -0.62 ABS# (0-10)
--- NOTE | 2024-06-24 23:59 | PC.NURSE ---
Patient woke up and started complaining of epigastric pain again. He states this time it is getting unbearable. He states that it eased up some after he passed some gas and gets worse when he ate crackers. Dr. Quevedo contacted and stated he would consult hospitalist.
[2024-06-25] VITALS (22 sets, daily range): BP systolic 104–164; BP diastolic 52–81; PULSE 51–78; RESP 15–24; TEMP 36.8; O2SAT 90–96
--- NOTE | 2024-06-25 00:02 | P.CONIM_ITS ---
Providers/Reason For Consult 2 Consulting Physician/Specialty*: Ryan Wu / internal medicine Reason for Consult*: Severe abdominal pain Attending Physician: Eric Quevedo M.D Primary Care Provider: Antonio Lujan MD History of Present Illness History of Present Illness Castillo Leyva is a 68 year old male with a past medical history significant for coronary artery disease with recent NSTEMI s/p multiple recent PCIs, heart failure, cardiomyopathy, hypertension, hyperlipidemia, Cisneros's palsy, and recently diagnosed with atrial fibrillation who is currently admitted for staged PCI of LAD lesion. Patient underwent heart cath with PCI to LAD on 06/24/2024. Access was to the groin. Patient reports postprocedure while laying back he was trying to eat. He states while trying to eat and swallow he had a hiccup. He reports since that time he has noticed abdominal pains that wax and wane. He reports the pains going up to 10 out of 10. He endorses associated abdominal distention and tightness. He states that he thinks he has a bowel obstruction. He reports in the days prior to coming in he ate lots of jellybeans and hot tamales which she attributes to bowel obstruction. He denies a prior history of bowel obstruction. Reports his last bowel movement was Friday afternoon. He does note that he did pass flatus while ambulating on the unit today. He has received nitroglycerin which she states did not improve the pain. Patient also received simethicone and Maalox which he states also did not improve the pain. He denies other alleviating or aggravating factors. He states that he does not think the pains associated with his heart. Review of Systems 2 Narrative: A complete review of systems was obtained and is negative except as stated in HPI. Medications/Allergies Home Medications Medication Instructions Recorded Confirmed Last Taken Type albuterol sulfate 90 mcg/actuation 2 puff inhalation Q6H PRN 06/03/22 06/24/24 Unknown History aerosol inhaler Bronchodilation aspirin 81 mg tablet,delayed 81 mg PO DAILY #90 tabs 06/28/22 06/24/24 06/23/24 07:00 Rx release furosemide 40 mg tablet 40 mg PO DAILY #90 tabs 06/28/22 06/24/24 06/23/24 07:00 Rx nitroglycerin 0.4 mg sublingual 0.4 mg sublingual Q5M PRN Chest 06/28/22 06/24/24 Unknown Rx tablet Pain #30 tabs lisinopril 20 mg tablet 10 mg PO DAILY 09/24/22 06/24/24 06/24/24 05:00 History clopidogrel 75 mg tablet 75 mg PO DAILY #90 tabs 06/03/23 06/24/24 06/24/24 05:00 Rx apixaban 5 mg tablet 5 mg PO BID #60 tabs 06/19/24 06/24/24 06/22/24 Rx atorvastatin 40 mg tablet 40 mg PO QPM #30 tabs 06/19/24 06/24/24 06/24/24 05:00 Rx cefdinir 300 mg capsule 300 mg PO BID 06/24/24 06/24/24 06/24/24 05:00 History Allergies Allergy/AdvReac Type Severity Reaction Status Date / Time No Known Allergies Allergy Verified 06/24/24 06:35 Current Medications Generic Name Dose Route Start Last Admin Trade Name Freq PRN Reason Stop Dose Admin Al Hydrox/Mg Hydrox/Simethicone 30 ml 06/24/24 11:57 06/24/24 17:24 Ersl-Fnk-Elwzuadou-Mei 30 Ml Udc PO 30 ml Q15M PRN Administration INDIGESTION Atorvastatin Calcium 40 mg 06/24/24 18:00 06/24/24 18:16 Atorvastatin 40 Mg Tablet PO Not Given QPM LAUREN Nitroglycerin 0.4 mg 06/24/24 11:56 06/24/24 17:24 Nitroglycerin 0.4 Mg Sublingual Tablet SUBLINGUAL 0.4 mg Q5M PRN Administration Chest Pain Simethicone 80 mg 06/24/24 16:37 06/24/24 17:24 Simethicone 80 Mg Chew PO 80 mg QID PRN Administration FLATULENCE PFSH Acute 2 PFSH: Medical History NSTEMI (non-ST elevated myocardial infarction) Urinary tract infection Atrial fibrillation with rapid ventricular response Exertional shortness of breath Dyslipidemia Atherosclerosis of coronary artery CHF (congestive heart failure) Family history of ischemic heart disease and other diseases of the circulatory system HTN (hypertension) Surgical History S/P appendectomy S/P hernia repair S/P knee surgery Family History Mother Congestive heart failure (CHF) Hypertension Father Myocardial infarction Hx of CABG Social History Smoking and tobacco/nicotine status: former use of tobacco/nicotine Vitals/I&O/Wt Last Vital Signs Temp 97.1 F L 06/24/24 09:00 Pulse 58 L 06/24/24 22:00 Resp 18 06/24/24 17:23 BP 139/77 06/24/24 12:00 Pulse Ox 90 06/24/24 17:23 O2 Del Method Room Air 06/24/24 14:30 06/24/24 06/24/24 06/25/24 14:59 22:59 06:59 Intake Total 354.167 / 354.167 0 / 354.167 Output Total 500 / 500 Balance 354.167 / 354.167 -500 / -145.833 Weight last 48 hrs Weight 104.128 kg Weight 102.058 kg Physical Exam 2 Narrative: General: Patient is awake. Sitting in bedside chair. Appears uncomfortable. Head: Normocephalic. Atraumatic. EOM intact. Neck: No JVD. Cardiovascular: RRR. No gallops. No murmurs. Lungs: Breaths are shallow with diminished breath sounds in bases. No wheezing or crackles. Skin: No jaundice. No rashes. Abdomen: Abdomen appears distended. Bowel sounds are present. There is tenderness to light deep palpation in the bilateral upper quadrants. No guarding. Extremities: No cyanosis or clubbing. Musculoskeletal: No swollen or erythematous joints. Neurological: Moves all 4 extremities. No myoclonus. Data 06/24/24 06:18 06/24/24 06:18 A&P Assessment and plan (1) Sudden onset of severe abdominal pain: Broad differential Patient describes possible reflux event today, start empiric PPI for possible esophagitis Patient is also on triple therapy which may increase recent ulcer formation, PPI as above Pancreatitis seems less likely, add on lipase level to a.m. labs He is status post cardiac cath via groin access, check hemoglobin level Abdomen is distended with severe pain, proceed with CT abdomen/pelvis stat Will hold off on IV contrast due to prior contrast load with cardiac cath in the setting of CKD Adjust analgesics as needed Plan Thank you for this consultation. Internal medicine service will continue to follow. Coding Level of Care Code Acute Code for Chg Fwd Diagnoses Sudden onset of severe abdominal pain R10.9
--- NOTE | 2024-06-25 00:20 | CTR_ITS ---
PROCEDURE INFORMATION: Exam: CT Abdomen And Pelvis Without Contrast Exam date and time: 06/25/2024 12:29 AM Age: 68 years old Clinical indication: Abdominal pain; Prior surgery; Surgery date: 6+ months; Surgery type: Hernia repair, appy; Additional info: Severe epigastric pain, distention TECHNIQUE: Imaging protocol: Computed tomography of the abdomen and pelvis without contrast. Radiation optimization: All CT scans at this facility use at least one of these dose optimization techniques: automated exposure control; mA and/or kV adjustment per patient size (includes targeted exams where dose is matched to clinical indication); or iterative reconstruction. COMPARISON: US abdomen limited [id number] 06/18/2024 4:38 AM RADIATION DOSE METRICS: Total DLP (mGy-cm): 970.87 FINDINGS: Lungs: Bibasilar atelectasis. Liver: Unremarkable. No mass. Gallbladder and biliary ducts: Status post cholecystectomy. Pancreas: Unremarkable. No ductal dilation. Spleen: Too small to characterize hypodense lesion within the spleen. No splenomegaly. Adrenal glands: Unremarkable. No mass. Kidneys and ureters: No obstructing renal stones. No hydronephrosis. Stomach and bowel: Mild colonic diverticulosis. No acute diverticulitis. No significant bowel wall thickening. No bowel obstruction. Appendix: Status post appendectomy. Intraperitoneal space: No free air. No significant fluid collection. Vasculature: No abdominal aortic aneurysm. Lymph nodes: No enlarged lymph nodes. Urinary bladder: Distended urinary bladder with multiple posteriorly directed diverticuli. No significant wall thickening. Reproductive: Prostatomegaly. Bones/joints: Severe degenerative changes within the lumbar spine. No acute bony process. Soft tissues: No bowel containing hernia. Fat containing umbilical hernia. CT/CT abdomen pelvis wo con [id number] IMPRESSION: 1. Distended urinary bladder with multiple diverticuli. Correlate for urinary retention. 2. No significant acute inflammatory bowel changes. No bowel obstruction. 3. No bowel containing inguinal hernias.
[2024-06-25 00:27] LABS: Troponin 5 6HR 72.75 ng/L (0-15)
[2024-06-25 00:30] LABS: Lipase 26 U/L (13-60)
[2024-06-25 00:40] LABS: Troponin 5 6HR Delta 20.75 ng/L (0-12)
[2024-06-25] MEDS: pantoprazole 40 mg SDV 80 MG IVP (01:04)
--- NOTE | 2024-06-25 02:30 | PC.NURSE ---
Dr. Wu ordered post void residual. Patient voided 400mls and had a PVR of 567. Dr. Wu ordered a buckner.
[2024-06-25 02:37] LABS: Bilirubin Urine Negative (Negative); Blood Urine Negative (Negative); Glucose Urine UA Negative (Normal); Ketones Urine Negative (Negative); Leukocyte Esterase Urine Negative (Negative); Nitrate Urine Negative (Negative); Protein Urine Negative (Negative); Specific Gravity, Urine 1.027 (1.005-1.030); Urine Appearance Clear (CLEAR); Urine Color Yellow (Yellow); Urobilinogen Urine 0.2 mg/dL (Negative); pH Urine 6.5 (5-7)
[2024-06-25 02:42] LABS: Bacteria Urine None Seen /hpf; Hyaline Casts Urine 0.81 /lpf; RBC Urine 0-2 /hpf (0-2); Squamous Epithelial Cell Urine 0-5 /hpf (0-5); WBC Urine 0-5 /hpf (0-5)
[2024-06-25 03:58] LABS: Basophils # 0.1 10^3/uL (0.0-0.1); Basophils % 0.5 %; Eosinophils # 0.3 10^3/uL (0.0-0.8); Eosinophils % 3.3 %; Hematocrit 45.9 % (37-53); Lymphocytes # 0.9 10^3/uL (0.8-4.8); Mean Corpuscular HGB Conc 32.5 g/dL (30-55); Mean Corpuscular Hemoglobin 30.6 pg (27-33); Mean Corpuscular Volume 94.3 fl (82-101); Monocytes # 0.9 10^3/uL (0.2-0.9); Monocytes % 9.3 %; Neutrophils # 7.68 10^3/uL (1.8-7.7); Neutrophils % 77.5 %; Nucleated Red Blood Cells % 0 %; Platelet Count 177 10^3/cmm (157-399); Red Blood Count 4.87 10^6/uL (3.85-5.65); Red Cell Distribution Width 14.6 % (12.1-15.1); White Blood Count 9.91 10^3/uL (3.29-11.43)
[2024-06-25 04:15] LABS: Anion Gap 14.3 (5-19); Blood Urea Nitrogen 19 mg/dL (8-23); Calcium 8.2 mg/dL (8.5-10.5); Carbon Dioxide 24 mmol/L (22-29); Chloride 102 mmol/L (98-107); Creatinine Clr Calc Pharmacy 68.7972; Glomerular Filtration Rate 55.1 mL/min (90-130); Glucose 99 mg/dL (65-115); Osmolality Calculated 284 mOsm/kg (285-295); Potassium 4.3 mmol/L (3.5-5.1); Sodium 136 mmol/L (136-145)
[2024-06-25] MEDS: lisinopril 20 mg Tablet 10 MG PO (08:39)
[2024-06-25] MEDS: magnesium hydroxide 30 mL UDC PO (08:39)
[2024-06-25] MEDS: clopidogrel 75 mg Tablet PO (08:39)
[2024-06-25] MEDS: aspirin 81 mg EC Tablet PO (08:39)
--- NOTE | 2024-06-25 09:52 | CT_ITS ---
WS: [id number] CT CHEST TECHNIQUE: Noncontrast CT of the chest with coronal and sagittal reformatted images. CLINICAL INFORMATION: ORAL GASTROGRAFFIN CONTRAST COMPARISON: None. DLP: 695.[address] scans at [facility] use at least one of these dose optimization techniques: automated e xposure control; mA and/or kV adjustment per patient size (includes targeted exams where dose is matc hed to clinical indication); or iterative reconstruction. FINDINGS: Oral contrast administered just prior to examination. No evidence of aspiration. Oral contrast traversed the esophagus without any evidence of leak. Thorac ic esophagus appears decompressed. Normal GE junction. Oral contrast within the stomach and proximal duodenum. No evidence of esophageal wall thickening or obstruction. No free air. Noncontrast thoracic aorta appears normal. Coronary stents and calcification. No mediastinal or hilar lymphadenopathy. No axillary lymphadenopathy. Prior cholecystectomy. Lungs are well aerated. Slight subsegmental atelectasis in the lung bases. No focal pneumonia or pleural fluid. No other acute findings. CT/CT chest wo con [id number] IMPRESSION: 1. No evidence of esophageal leak, obstruction, or perforation. No evidence of pneumomediastinum. 2. Slight subsegmental atelectasis in the lung bases. 3. No other acute findings.
[2024-06-25] MEDS: iohexol 350 mg/mL 500 mL Btl (per mL) PO (11:08)
--- NOTE | 2024-06-25 12:02 | P.PN_ITS ---
Vitals/I&O/Wt Last Vital Signs Temp 98.2 F 06/25/24 04:00 Pulse 69 06/25/24 11:06 Resp 20 H 06/25/24 11:06 BP 164/80 06/25/24 11:06 Pulse Ox 96 06/25/24 11:06 O2 Del Method Room Air 06/25/24 11:06 06/24/24 06/25/24 06/25/24 22:59 06:59 14:59 Intake Total 0 / 354.167 645.833 / 1000.000 120 / 120 Output Total 500 / 500 1200 / 1700 550 / 550 Balance -500 / -145.833 -554.167 / -700.000 -430 / -430 Weight last 48 hrs Weight 100.471 kg Weight 104.128 kg Weight 102.058 kg Physical Exam 2 Urinary Catheter Management: Martinez: Cath Placed During This Visit: yes Reason for Continuing Indwelling Catheter: Acute Urinary Retention or Obstruction Urinary Catheter Date of Insertion: 06/25/24 Urinary Catheter Time of Insertion: 02:50 Data 06/25/24 03:31 06/25/24 03:31 Coding Level of Care Code Acute Code for Chg Fwteodora
--- NOTE | 2024-06-25 12:15 | PM.MISC ---
Miscellaneous Note Note: seen this am pt continues to complain of intermittent pain in his esophagus . He describes the pain starting at epigastric area and going towards this throat. He did have hiccups while eating yesterday. Discussed with patients regarding possibilities and most likely he has GERD however esophageal perforation cannot be ruled out given his hiccups and sharp pains. Will order ct esophagram with gastrograffin although suspicion is low. Pt may also be constipated. Will order lactulose 20 gm BID x 2 doses. He does report issues with constipation at home as well and feels bloated at this time. GI cocktail was given last night. CT abd pelvis reviewed as well Abd soft non tender, bs + , distended abdomen lungs cta b/l normal s1, s2, NAD , sitting up in chair
--- NOTE | 2024-06-25 12:21 | P.PN_ITS ---
Vitals/I&O/Wt Last Vital Signs Temp 98.2 F 06/25/24 04:00 Pulse 69 06/25/24 11:06 Resp 20 H 06/25/24 11:06 BP 164/80 06/25/24 11:06 Pulse Ox 96 06/25/24 11:06 O2 Del Method Room Air 06/25/24 11:06 06/24/24 06/25/24 06/25/24 22:59 06:59 14:59 Intake Total 0 / 354.167 645.833 / 1000.000 120 / 120 Output Total 500 / 500 1200 / 1700 550 / 550 Balance -500 / -145.833 -554.167 / -700.000 -430 / -430 Weight last 48 hrs Weight 221 lb 8 oz Weight 229 lb 9 oz Weight 225 lb Physical Exam 2 Urinary Catheter Management: Martinez: Cath Placed During This Visit: yes Reason for Continuing Indwelling Catheter: Acute Urinary Retention or Obstruction Urinary Catheter Date of Insertion: 06/25/24 Urinary Catheter Time of Insertion: 02:50 Data 06/25/24 03:31 06/25/24 03:31 Coding Level of Care Code Acute Code for Chg Abhi
[2024-06-25] MEDS: pantoprazole DR 40 mg Tablet PO (12:58)
[2024-06-25] MEDS: lactulose oral liq 20 gm/30 mL UDC PO (12:58)
--- NOTE | 2024-06-25 18:26 | P.DS_ITS ---
Discharge Providers Date of Admission: 06/24/24 11:00 Date of Discharge: June 25, 2024 Attending Provider at Admission: Milly Crane MD Attending Provider at Discharge: Eric Quevedo M.D Consults: Dr Wu (Hospitalist) Primary Care Provider: Antonio Lujan MD Diagnoses at Discharge Discharge Diagnosis (1) Sudden onset of severe abdominal pain: Status: Resolved (2) Atherosclerosis of coronary artery: Status: Acute Qualifiers: Coronary Disease-Associated Artery/Lesion type: [place] artery [place] vs. transplanted heart: [place] heart Associated angina: without angina Qualified Code(s): I25.10 - Atherosclerotic heart disease of [place] coronary artery without angina pectoris (3) HTN (hypertension): Status: Acute Qualifiers: Hypertension type: primary hypertension Qualified Code(s): I10 - Essential (primary) hypertension Reason for Visit Reason for Visit: I25.10 Brief History: 68-year-old man with past medical histor y of hypertension, atrial fibrillation who had PCI of RCA last week when he had NSTEMI. Here for staged PCI of mid LAD. Hospital Course Hospital Course Patient had successful revascularization of LAD with 2 stents. In the evening o f the procedure, patient started complaining of abdominal discomfort radiating to the throat after eating food. Troponins were mildly elevated. No EKG changes. Medicine team was consulted who did CT scan of abdomen and chest. No significant abnormalities were seen. After patient had bowel movement, his pain resolved. He was stable. Was recommended to stay for 1 night for observation but he was completely symptom free and wanted to go home. Patient was discharged home in a stable condition on Eliquis and Plavix. Physical Exam Narrative: GENERAL: Patient is alert, awake and oriented x3. [] NECK: No jugular vein distension. [] HEENT: No cyanosis. No icterus. No pallor. [] HEART: Regular S1 and S2. No murmur, rub or gallop. [] LUNGS: Clear to auscultate bilaterally. [] CENTRAL NERVOUS SYSTEM: Grossly nonfocal. [] EXTREMITIES: Lower extremities with no edema bilaterally. Urinary Catheter Management: Martinez: Cath Placed During This Visit: yes, but has since been removed by the nurse Reason for Continuing Indwelling Catheter: Decision to DC Catheter Urinary Catheter Date of Insertion: 06/25/24 Urinary Catheter Time of Insertion: 02:50 Date Urinary Catheter Removed: 06/25/24 Time Urinary Catheter Discontinued: 15:00 Discharge Data Studies Completed and Pending Completed Studies During Hospitalization Category Date Time Status CT abdomen pelvis wo con [id number] Stat Cat Scan 06/25/24 00:[address] chest wo con [id number] Stat Cat Scan 06/25/24 09:52 Completed Pending at discharge Category Date Time Status CLINIC OFFICE MANAGER request for service Routine Exams 06/24/24 06:00 Taken Complete Blood Count w/Auto AM LABS Lab 06/26/24 04:00 Ordered Comprehensive Metabolic Panel AM LABS Lab 06/26/24 04:00 Ordered Magnesium AM LABS Lab 06/26/24 04:00 Ordered Radiology Impressions Abdomen/Pelvis CT 06/25/24 00:20 IMPRESSION: 1. Distended urinary bladder with multiple diverticuli. Correlate for urinary retention. 2. No significant acute inflammatory bowel changes. No bowel obstruction. 3. No bowel containing inguinal hernias. Chest CT 06/25/24 09:52 IMPRESSION: 1. No evidence of esophageal leak, obstruction, or perforation. No evidence of pneumomediastinum. 2. Slight subsegmental atelectasis in the lung bases. 3. No other acute findings. Laboratory Results WBC 9.91 10^3/uL (3.29-11.43) 06/25/24 03:31 RBC 4.87 10^6/uL (3.85-5.65) 06/25/24 03:31 Hgb 14.90 g/dL (11.27-16.99) 06/25/24 03:31 Hct 45.9 % (37-53) 06/25/24 03:31 MCV 94.3 fl (82-101) 06/25/24 03:31 MCH 30.6 pg (27-33) 06/25/24 03:31 MCHC 32.5 g/dL (30-55) 06/25/24 03:31 RDW 14.6 % (12.1-15.1) 06/25/24 03:31 Plt Count 177 10^3/cmm (157-399) 06/25/24 03:31 MPV 10.0 fL (7.4-10.4) 06/25/24 03:31 Neut % (Auto) 77.5 % 06/25/24 03:31 Lymph % (Auto) 9.0 % 06/25/24 03:31 [place] % (Auto) 9.3 % 06/25/24 03:31 Eos % (Auto) 3.3 % 06/25/24 03:31 Baso % (Auto) 0.5 % 06/25/24 03:31 Neut # (Auto) 7.68 10^3/uL (1.8-7.7) 06/25/24 03:31 Lymph # (Auto) 0.9 10^3/uL (0.8-4.8) 06/25/24 03:31 [place] # (Auto) 0.9 10^3/uL (0.2-0.9) 06/25/24 03:31 Eos # (Auto) 0.3 10^3/uL (0.0-0.8) 06/25/24 03:31 Baso # (Auto) 0.1 10^3/uL (0.0-0.1) 06/25/24 03:31 Nucleated RBC % (auto) 0 % 06/25/24 03:31 Nucleated RBCs # 0.0 /100WBC 06/25/24 03:31 APTT 44.1 SECONDS (23.9-36.7) H D 06/24/24 12:41 Sodium 136 mmol/L (136-145) 06/25/24 03:31 Potassium 4.3 mmol/L (3.5-5.1) 06/25/24 03:31 Chloride 102 mmol/L (98-107) 06/25/24 03:31 Carbon Dioxide 24 mmol/L (22-29) 06/25/24 03:31 Anion Gap 14.3 (5-19) 06/25/24 03:31 BUN 19 mg/dL (8-23) 06/25/24 03:31 Creatinine 1.3 mg/dL (0.7-1.2) H 06/25/24 03:31 GFR Calculation 55.1 mL/min (90-130) L 06/25/24 03:31 Glucose 99 mg/dL (65-115) 06/25/24 03:31 Calculated Osmolality 284 mOsm/kg (285-295) L 06/25/24 03:31 Calcium 8.2 mg/dL (8.5-10.5) L 06/25/24 03:31 Troponin T Baseline 52 ng/L (0-15) H 06/24/24 17:43 Troponin T 120 Minute 51.38 ng/L (0-15) H 06/24/24 19:46 Delta Troponin T -0.62 ABS# (0-10) L 06/24/24 19:46 Troponin T Hi Sens 6Hr 72.75 ng/L (0-15) H 06/24/24 23:30 Troponin T Hi Sens 6Hr Delta 20.75 ng/L (0-12) H* 06/24/24 23:30 Lipase 26 U/L (13-60) 06/25/24 00:00 Urine Color Yellow (Yellow) 06/25/24 02:18 Urine Appearance Clear (CLEAR) 06/25/24 02:18 Urine pH 6.5 (5-7) 06/25/24 02:18 Ur Specific [place] 1.027 (1.005-1.030) 06/25/24 02:18 Urine Protein Negative (Negative) 06/25/24 02:18 Urine Glucose (UA) Negative (Normal) 06/25/24 02:18 Urine Ketones Negative (Negative) 06/25/24 02:18 Urine Blood Negative (Negative) 06/25/24 02:18 Urine Nitrate Negative (Negative) 06/25/24 02:18 Urine Bilirubin Negative (Negative) 06/25/24 02:18 Urine Urobilinogen 0.2 mg/dL (Negative) 06/25/24 02:18 Ur Leukocyte Esterase Negative (Negative) 06/25/24 02:18 Urine RBC 0-2 /hpf (0-2) 06/25/24 02:18 Urine WBC 0-5 /hpf (0-5) 06/25/24 02:18 Ur Squamous Epith Cells 0-5 /hpf (0-5) 06/25/24 02:18 Amorphous Sediment Not Reportable 06/25/24 02:18 Urine Bacteria None seen /hpf (NONE) 06/25/24 02:18 Hyaline Casts 0.81 /lpf 06/25/24 02:18 Vitals Last Vital Signs Temp 98.2 F 06/25/24 04:00 Pulse 78 06/25/24 18:00 Resp 17 06/25/24 18:00 BP 145/81 06/25/24 16:00 Pulse Ox 96 06/25/24 18:00 O2 Del Method Room Air 06/25/24 18:00 Discharge Plan Discharge Patient Disposition: Home Condition: Stable Prescriptions: Continued albuterol sulfate 90 mcg/actuation HFA aerosol inhaler 2 puff inhalation Q6H PRN (Reason: Bronchodilation) lisinopril 20 mg tablet 10 mg PO DAILY clopidogrel 75 mg tablet 75 mg PO DAILY Qty: 90 3RF cefdinir 300 mg Capsule 300 mg PO BID nitroglycerin 0.4 mg Tablet, Sublingual 0.4 mg sublingual Q5M PRN (Reason: Chest Pain) Qty: 30 2RF furosemide 40 mg tablet 40 mg PO DAILY Qty: 90 0RF apixaban 5 mg tablet 5 mg PO BID Qty: 60 1RF atorvastatin 40 mg tablet 40 mg PO QPM Qty: 30 1RF Discontinued aspirin 81 mg Tablet,Delayed Release (Dr/Ec) 81 mg PO DAILY Qty: 90 2RF Discharge Orders: Discharge Order (Routine); Ordered 06/25/24 Ordered By: Eric Quevedo Referrals: Erendira Martinez FNP [Nurse Practitioner] - (We have notified your physician's clinic of the need for a follow-up appointment to be scheduled. If you have not heard from them within the next 2 business days, please call them directly. ) Discharge Diet: Cardiac Discharge Activity: Increase activity as tolerated Patient Instructions: Heart Healthy Diet, Coronary Angioplasty (DC), Urinary Retention in Men (ED), Abdominal Pain (DC), Opioid Safety, Post Angiogram Home Care Instructions Discharge Attestations Time Spent in Discharge Care*: greater than 30 min Quality Metrics Clinical Quality Measures [ No reported AMI, CVA or VTE this stay] Coding Level of Care Code Acute Code for Chg Fwd Diagnoses Sudden onset of severe abdominal pain R10.9 Atherosclerosis of [place] coronary artery of [place] heart without angina pectoris I25.10 Coronary Disease-Associated Artery/Lesion type: [place] artery [place] vs. transplanted heart: [place] heart Associated angina: without angina Primary hypertension I10 Hypertension type: primary hypertension
[2024-06-25] MEDS: apixaban 5 mg Tablet PO (19:20)
[2024-06-25] MEDS: atorvastatin 40 mg Tablet PO (19:20)
--- NOTE | 2024-06-25 19:30 | PC.NURSE ---
Discharge: Discharge education provided. Patient verbalized understanding. Stent cards given to patient. Patient ambulated to private vehicle.
== END 2024-06-25 19:30 | disposition home or self-care (01) ==
LOC: CCL 11:01 → ICU 11:01
PROVIDERS: Internal Medicine; Admitting Provider Internal Medicine; PCP Family Medicine; Visit Provider Internal Medicine
DX: I25.10 Atherosclerotic heart disease of native coronary artery without angina pectoris (principal); I48.91 Unspecified atrial fibrillation; R10.9 Unspecified abdominal pain; R79.1 Abnormal coagulation profile; I25.2 Old myocardial infarction; Z95.5 Presence of coronary angioplasty implant and graft; E78.5 Hyperlipidemia, unspecified; Z82.49 Family history of ischemic heart disease and other diseases of the circulatory system; I11.0 Hypertensive heart disease with heart failure; I50.9 Heart failure, unspecified; Z87.891 Personal history of nicotine dependence
CPT/HCPCS: 36415; 51702; 51798; 71250; 74176; 80048; 81001; 83690; 84484; 85025; 85347; 85730; 93005; 96374; 96375; 99152; 99153; C1725; C1769; C1874; C1887; C1894; C9600; G0378; J1644; J2250; J2470; J3010; J3490; J7030; Q0163; Q9967

== ENCOUNTER → 2024-07-01 13:41 | Outpatient (BNVA) | payer MEDICARE, SELFPAY | PROVIDERS: PCP Family Medicine; Visit Provider Nurse Practitioner Family | DX: I25.10 Atherosclerotic heart disease of native coronary artery without angina pectoris (principal); Z95.5 Presence of coronary angioplasty implant and graft | CPT/HCPCS: 99214 ==

== ENCOUNTER → 2024-07-08 13:15 | Outpatient (BNVA) | payer MEDICARE, SELFPAY | PROVIDERS: PCP Family Medicine; Visit Provider Dermatology | DX: L81.4 Other melanin hyperpigmentation (principal); G51.0 Bell's palsy; L63.1 Alopecia universalis; L57.0 Actinic keratosis; L21.8 Other seborrheic dermatitis; L30.0 Nummular dermatitis; B35.1 Tinea unguium; D48.5 Neoplasm of uncertain behavior of skin; Z48.817 Encounter for surgical aftercare following surgery on the skin and subcutaneous tissue; Z85.828 Personal history of other malignant neoplasm of skin | CPT/HCPCS: 17000; 99214 ==

== ENCOUNTER → 2024-07-14 15:21 | Outpatient (BNVA) | payer MEDICARE, SELFPAY | PROVIDERS: PCP Family Medicine; Visit Provider Registered Nurse Neonatal Intensive Care | DX: S69.92XA Unspecified injury of left wrist, hand and finger(s), initial encounter (principal); Y93.H1 Activity, digging, shoveling and raking; M79.645 Pain in left finger(s) | CPT/HCPCS: 73130 ==

== ENCOUNTER → 2024-08-03 13:37 | Outpatient (BNVA) | payer MEDICARE, SELFPAY | PROVIDERS: PCP Family Medicine; Visit Provider Podiatrist Foot & Ankle Surgery | DX: L60.3 Nail dystrophy (principal); I73.9 Peripheral vascular disease, unspecified; G62.9 Polyneuropathy, unspecified; E11.42 Type 2 diabetes mellitus with diabetic polyneuropathy | CPT/HCPCS: 11721; 99203 ==

== ENCOUNTER → 2024-09-28 10:15 | Outpatient (BNVA) | payer MEDICARE, SELFPAY | PROVIDERS: PCP Family Medicine; Visit Provider Internal Medicine Cardiovascular Disease | DX: I25.10 Atherosclerotic heart disease of native coronary artery without angina pectoris (principal); I73.9 Peripheral vascular disease, unspecified; E13.9 Other specified diabetes mellitus without complications; I48.91 Unspecified atrial fibrillation; I11.0 Hypertensive heart disease with heart failure; I50.9 Heart failure, unspecified; Z79.01 Long term (current) use of anticoagulants | CPT/HCPCS: 99214 ==

== ENCOUNTER → 2025-01-24 08:11 | Outpatient (BNVA) | payer MEDICARE, SELFPAY | PROVIDERS: PCP Family Medicine; Visit Provider Nurse Practitioner Family | DX: L81.4 Other melanin hyperpigmentation (principal); L63.1 Alopecia universalis; D22.0 Melanocytic nevi of lip; L57.8 Other skin changes due to chronic exposure to nonionizing radiation; X32.XXXA Exposure to sunlight, initial encounter; Z08 Encounter for follow-up examination after completed treatment for malignant neoplasm; Z85.828 Personal history of other malignant neoplasm of skin; L57.0 Actinic keratosis | CPT/HCPCS: 17000; 99213 ==

== ENCOUNTER → 2025-03-29 09:27 | Outpatient (BNVA) | payer MEDICARE, SELFPAY | PROVIDERS: PCP Family Medicine; Visit Provider Nurse Practitioner Family | DX: I25.10 Atherosclerotic heart disease of native coronary artery without angina pectoris (principal); I48.20 Chronic atrial fibrillation, unspecified; Z79.01 Long term (current) use of anticoagulants; Z79.02 Long term (current) use of antithrombotics/antiplatelets; I11.0 Hypertensive heart disease with heart failure; I50.9 Heart failure, unspecified; E78.5 Hyperlipidemia, unspecified; J45.909 Unspecified asthma, uncomplicated; B02.9 Zoster without complications; I83.90 Asymptomatic varicose veins of unspecified lower extremity; I73.9 Peripheral vascular disease, unspecified; I25.2 Old myocardial infarction | CPT/HCPCS: 99214 ==

== ENCOUNTER 2025-07-22 10:52 | Emergency (ER) | payer MEDICARE, SELFPAY ==
--- NOTE | 2025-07-22 10:53 | CT_ITS ---
WS: [id number] CT HEAD TECHNIQUE: Noncontrast CT of the head obtained from the skullbase to the vertex. CLINICAL INFORMATION: fall, head injury COMPARISON: None. DLP: 1193.[address] scans at [facility] use at least one of these dose optimization techniques: automated exposure control; mA and/or kV adjustment per patient size (includes targeted exams where dose is matched to clinical indication); or iterative reconstruction. FINDINGS: No evidence of intracranial hemorrhage or mass effect. Ventricular system and basal cisterns are patent. Mild small vessel changes with mild parenchymal volume loss. No extra-axial fluid collections. No evidence of mass or mass effect. Normal hernandez-white differentiation. Cerebellar tonsillar ectopia. No hydrocephalus. Laceration LEFT frontal scalp. Mild mucosal thickening in the paranasal sinuses. Mastoid air cells are well aerated. CT/CT head wo con* [id number] IMPRESSION: 1. No evidence of intracranial hemorrhage or mass effect. 2. Vascular calcification. 3. No acute intracranial findings.
[2025-07-22 10:55] VITALS: BP 161/85; PULSE 76; RESP 18; O2SAT 97
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
[2025-07-22 12:15] VITALS: PULSE 75; O2SAT 99
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
== END 2025-07-22 12:23 | disposition home or self-care (01) ==
PROVIDERS: Emergency Provider Physician Assistant; PCP Family Medicine
DX: S01.01XA Laceration without foreign body of scalp, initial encounter (principal); S09.8XXA Other specified injuries of head, initial encounter; Y04.2XXA Assault by strike against or bumped into by another person, initial encounter; I25.10 Atherosclerotic heart disease of native coronary artery without angina pectoris; E78.5 Hyperlipidemia, unspecified; I11.0 Hypertensive heart disease with heart failure; I50.9 Heart failure, unspecified; Z79.01 Long term (current) use of anticoagulants; Z79.02 Long term (current) use of antithrombotics/antiplatelets
CPT/HCPCS: 12001; 70450; 99284

== ENCOUNTER 2025-08-06 14:45 | Emergency (ER) | payer MEDICARE, SELFPAY ==
[2025-08-06 14:46] VITALS: BP 138/75; PULSE 83; RESP 18; O2SAT 94
--- OUTSIDE RECORDS SUMMARY | 2025-08-06 14:49 | XMS_ITS | Data Portability ---
Author Organization [facility] [address] [facility]ique [facility], [facility], [facility] Address [address] [place] [id number] Care Team Providers Care Insurance Agency Sales Manager Name Role Phone HEATHER LUJAN Primary Care Provider Unavailabl e Assessment Encounter Date Assessment Date Assessment LastModified by Organization Details LastModified Time 06/22/2024 06/22/2024 Document scribed by Rupesh Soto Director Of Marketing. I was present during interview and exam. I have reviewed and agree with above documentation. Dr. Bo Arizmendi. [email or web address] Not available 06/22/2024 11:37:17 06/17/2025 06/17/2025 Patient presente d to office today for their Medicare Annual Wellness Visit. Education was provided on healthy nutrition, including a diet rich in fruits and vegetables, minimizing simple carbohydrates, salt, and saturated fats. Encouraged regular cardiovascular exercise such as walking at least 30 minutes daily, 5 times per week. Emphasized preventive health measures and educated pt on fall prevention and community-based lifestyle interventions to help reduce health risks and promote healthy living. [email or web address] Not available 06/17/2025 10:55:57 07/04/2025 07/04/2025 Document scribed by Lamine Talbot Scribe. I was present during interview and exam. I have reviewed and agree with above documentation. Dr. Bo Arizmendi. [email or web address] Not available 07/04/2025 12:35:42 Plan of Treatment Reminders Order Date Submit Date Provider Last Modified By Organization Details Last Modified Time Details Appointments RECHECK 15 2025 10:15A M Heather Lujan MD Not available Not available Not available Lab CMP, serum or plasma 2024 025 ANN [facility], [address], [address], [place], [address], 06/21/2025 12:15:32 lipid panel, blood 2024 025 ANN [facility], [address], [address], [place], [address], 06/21/2025 12:15:35 CBC 2024 025 ANN [facility], [address], [address], [place], [address], 06/21/2025 11:44:14 Referral gastroent erologist referral 2024 025 [email or web address] Not available 06/23/2025 14:28:34 gastroent erologist referral 2023 024 [email or web address] Not available 06/18/2024 08:14:34 dermatolo gist referral 2023 024 ANN MARCH, [address], [address], [place], [address], 01/19/2024 16:04:46 gastroent erologist referral 2023 024 [email or web address] Morgan Garvin MD, [address], [address], [place], [address], 03/02/2024 16:14:35 Procedures colonosco py screening (PROC) 2024 025 [email or web address] [facility], [address] , [place], [address], 07/06/2025 11:35:08 Surgeries None recorded. Imaging None recorded. Medication Orders None recorded. Patient TargetsNo targets recorded. Patient Instructions Encounter Date Encounter Id Patient Instructions Last Modified By Organization Details Last Modified Time 06/17/2025 [id number] advance care planning: care instructions [email or web address] Not available 06/17/2025 11:41:59 preventing falls : care instructions [email or web address] Not available 06/17/2025 11:41:59 Learning About Being Physically Active [email or web address] Not available 06/17/2025 11:41:59 nutrition for older adults: care instructions [email or web address] Not available 06/17/2025 11:41:59 Discussed and explained advance directives such as standard forms to the . Face to face discussion lasted for a duration of ___ minutes. 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 Referral for S quamous cell carcinoma of skin Referring Physician: Heather Lujan [facility], Encounter Date: 01/05/2024 Alining Inspector Referral for Coronary arteriosclerosis Referring Physician: Heather Lujan [facility], Encounter Date: 01/05/2024 Alining Inspector Referral for Benign essential hypertension Referring Physician: Heather Lujan [facility], Encounter Date: 06/15/2024 Alining Inspector Referral for Screening for malignant neoplasm of colon Referring Physician: Heather Lujan [facility], Encounter Date: 06/17/2025 Results Created Date Observation Date Name Description Value Unit Range Abnormal Flag Note LastModifiedBy Organization Detail LastModifiedTime 06/21/2006/21/2025 HBA1C hemaglobin A1C 6.1 4.2-6. 5 normal Not Available [facility] [address] [facility] [address], [place], [address], 06/21/2025 11:37:29 06/21/2006/21/2025 CBC WBC 5.6 x10 4.5-10 .5 Not Available [facility] [address], [place], [address], 06/21/2025 11:44:14 06/21/20 25 06/21/2025 CBC RBC 5.51 x10 4.30-5 .90 Not Available [facility] [address] [facility] [address], [place], [address], 06/21/2025 11:44:14 06/21/2006/21/2025 CBC HGB 16.9 g/dL 13.5-1 8.0 Not Available [facility] [address] [facility] 1, [place], [address], 06/21/2025 11:44:14 06/21/2006/21/2025 CBC HCT 52.7 % 35.0-6 0.0 Not Available [facility] [address] [facility] 1, [place], [address], 06/21/2025 11:44:14 06/21/2006/21/2025 CBC MCV 95.7 fL 80.0-9 9.9 Not Available [facility] [address] [facility] 1, [place], [address], 06/21/2025 11:44:14 06/21/2006/21/2025 CBC MCH 30.6 pg 27.0-3 2.0 Not Available [facility] [address] [facility] 1, [place], [address], 06/21/2025 11:44:14 06/21/2006/21/2025 CBC MCHC 32.0 g/dL 32.0-3 6.0 Not Available [facility] [address] [facility] 1, [place], [address], 06/21/2025 11:44:14 06/21/2006/21/2025 CBC RDW 14.1 % 11.5-1 4.5 Not Available [facility] [address] [facility] 1, [place], [address], 06/21/2025 11:44:14 06/21/2006/21/2025 CBC plt 173.6 x10 150.0- 451.0 Not Available [facility] [address] [facility] 1, [place], [address], 06/21/2025 11:44:14 06/21/20 25 06/21/2025 CBC lymphocytes % 20.1 % 20.0-5 0.0 Not Available [facility] [address] [facility] 1, [place], [address], 06/21/2025 11:44:14 06/21/20 25 06/21/2025 CBC granulcytes % 64.7 % 30.0-7 0.0 Not Available [facility] [address] [facility] 1, [place], [address], 06/21/2025 11:44:14 06/21/20 25 06/21/2025 CBC monocytes % 9.8 % 2.0-16 .0 Not Available [facility] [address] [address], [place], [address], 06/21/2025 11:44:14 06/21/20 25 06/21/2025 CBC granulcytes# 3.6 x10 Not Carley ilable [facility] [address] [address], [place], [address], 06/21/2025 11:44:14 06/21/20 25 06/21/2025 CBC lymphocytes # 1.1 x10 Not Available [facility] [address] [address], [place], [address], 06/21/2025 11:44:14 06/21/20 25 06/21/2025 CBC monocytes # 0.6 x10 Not Avai lable [facility] [address] [address], [place], [address], 06/21/2025 11:44:14 06/21/20 25 06/21/2025 CMP (MALE ) glucose 124.0 mg/dL 60.0-9 9.0 high Not Available [facility] [address] [place], [address], 06/21/2025 12:15:32 06/21/20 25 06/21/2025 CMP (MALE ) BUN (blood urea nitrogen) 27.0 mg/dL 10.0-2 6.0 high Not Available [facility] [address] [facility], [place], [address], 06/21/2025 12:15:32 06/21/20 25 06/21/2025 CMP (MALE ) creatinine (serum) 1.5 mg/dL 0.4-1. 5 Not Available [facility] [address] [facility] [address] [address], [place], [address], 06/21/2025 12:15:32 06/21/20 25 06/21/2025 CMP (MALE ) BUN/creatini ne ratio 18.00 ratio Not Available [facility] [address] [facility] [address] [address], [place], [address], 06/21/2025 12:15:32 06/21/20 25 06/21/2025 CMP (MALE ) eGFR calculated 49.5 Not Available [facility] [address] [facility] [address] [address], [place], [address], 06/21/2025 12:15:32 06/21/20 25 06/21/2025 CMP (MALE ) total protein 7.8 g/dL 6.0-8. 5 Not Available [facility] [address] [facility] [address] [address], [place], [address], 06/21/2025 12:15:32 06/21/20 25 06/21/2025 CMP (MALE ) total bilirubin 0.7 mg/dL 0.2-1. 3 Not Available [facility] [address] [facility] [address] [address], [place], [address], 06/21/2025 12:15:32 06/21/20 25 06/21/2025 CMP (MALE ) albumin 4.4 g/dL 3.5-5. 5 Not Available [facility] [address] [facility], [place], [address], 06/21/2025 12:15:32 06/21/20 25 06/21/2025 CMP (MALE ) globulin 3.4 calc Not Available [facility] [address] [facility] [address], [place], [address], 06/21/2025 12:15:32 06/21/20 25 06/21/2025 CMP (MALE ) AST (SGOT) 35.0 U/L 0.0-46 .0 Not Available [facility] [address] [facility] [address], [place], [address], 06/21/2025 12:15:32 06/21/20 25 06/21/2025 CMP (MALE ) altv (SGPT) 24.0 U/L 13.0-6 9.0 normal Not Available [facility] [address] [facility] [address], [place], [address], 06/21/2025 12:15:32 06/21/20 25 06/21/2025 CMP (MALE ) A/G ratio 1.3 ratio Not Available [facility] [address] [address], [place], [address], 06/21/2025 12:15:32 06/21/20 25 06/21/2025 CMP (MALE ) ALP phos 68.0 U/L 30.0-1 40.0 normal Not Available [facility] [address] [facility] [address], [place], [address], 06/21/2025 12:15:32 06/21/20 25 06/21/2025 CMP (MALE ) calcium 9.1 mg/dL 8.4-10 .5 Not Available [facility] [address] [facility] [address], [place], [address], 06/21/2025 12:15:32 06/21/2006/21/2025 CMP (MALE ) sodium 139.0 mmol/ L 136.0- 145.0 Not Available [facility] [address] [facility] 1, [place], [address], 06/21/2025 12:15:32 06/21/20 25 06/21/2025 CMP (MALE ) potassium 4.3 mmol/ L 3.5-5. 1 Not Available [facility] [address] [facility] 1, [place], [address], 06/21/2025 12:15:32 06/21/20 25 06/21/2025 CMP (MALE ) chloride 103.0 mmol/ L 98.0-1 10.0 normal Not Available [facility] [address] [facility] 1, [place], [address], 06/21/2025 12:15:32 06/21/2006/21/2025 CMP (MALE ) C02 28.0 mmol/ L 22.0-3 1.0 Not Available [facility] [address] [facility] 1, [place], [address], 06/21/2025 12:15:32 06/21/2006/21/2025 CMP (MALE ) anion gap 8.0 calc Not Available [facility] [address] [facility] 1, [place], [address], 06/21/2025 12:15:32 06/21/2006/21/2025 CMP (MALE ) osmolality 293.2 calc Not Available [facility] [address] [facility], [place], [address], 06/21/2025 12:15:32 06/21/2006/21/2025 LIPID PROFI LE (MALE ) cholesterol 172.0 mg/dL 0.0-20 0.0 Not Available [address] [address], [place], [address], 06/21/2025 12:15:35 06/21/20 25 06/21/2025 LIPID PROFI LE (MALE ) trig 146.0 mg/dL 0.0-15 0.0 Not Available [address], [place], [address], 06/21/2025 12:15:35 06/21/20 25 06/21/2025 LIPID PROFI LE (MALE ) HDL - direct 37.0 mg/dL >40.0 low Not Available [address] [address], [place], [address], 06/21/2025 12:15:35 06/21/20 25 06/21/2025 LIPID PROFI LE (MALE ) VLDL - direct 29.2 mg/dL Not Available [address] [address], [place], [address], 06/21/2025 12:15:35 06/21/20 25 06/21/2025 LIPID PROFI LE (MALE ) LDL - direct 105.8 mg/dL 0.0-13 0.0 Not Available [address] [address], [place], [address], 06/21/2025 12:15:35 06/21/20 25 06/22/2025 ALBUM IN, RANDO M URINE W/CRE ATINI NE creatinine, random urine 97 mg/dL 20-320 normal Not Available [facility] [address] [place], [address], 06/22/2025 05:29:45 06/21/20 25 06/22/2025 ALBUM IN, RANDO M URINE W/CRE ATINI NE albumin, urine 5.7 mg/dL see note: normal Refer ence Range : Refer ence Range Not estab lishe d Not Available [facility] [address] [place], [address], 06/22/2025 05:29:45 06/21/20 25 06/22/2025 ALBUM IN, RANDO M URINE W/CRE ATINI NE albumin/crea tinine ratio, random urine 59 mg/g_ creat <30 high The ADA defin es abnor malit ies in album in excre tion as follo ws: Album inuri a Categ ory Resul t (mg/g creat inine ) Malini l to Mildl y incre ased <30 Moder ately incre ased 30-29 9 Sever heidi incre ased > OR = 300 The ADA recom mends that at least two of three speci mens colle cted withi n a 3-6 month perio d be abnor mal befor e consi ramsey g a patie nt to be withi n a diagn ostic categ ory. Not Available [facility] [address] [address] [address], [place], [address], 06/22/2025 05:29:45 06/18/20 24 06/17/2024 elect daniel fitzpatrick am No observ ation record ed. [email or web address] [facility] [address] [place], [address], 06/18/2024 18:20:05 Result Notes None recorded. Problems Name Problem SNOMED Code Status Onset Date Resolution Date Notes Provider Name and Address Organization Details Recorded Time Atrial fibrillatio n with rapid ventricular response 4439654043159 [address] [facility] Sudha Hopkins 4 11:03:44 Family history of Cardiovascu lar disease 124824795 [facility] 11:03:45 Dyslipidemi a 613196171 Active [facility] 4 11:03:45 Hypertensiv e disorder 61974635 Active Chaparrita Monteiro [facility] 4 11:03:45 Cardiac enzyme or marker above reference range 677403550 Active Chaparrita Monteiro [facility] 4 11:03:45 Coronary atheroscler osis 114655298 Active Chaparrita Monteiro [facility] 4 11:03:45 Dyspnea on exertion 33924248 Active Chaparrita Monteiro [facility] 4 11:03:45 Abdominal bloating 730828383 Active ORTIZ BUSCH [facility] 5 10:53:02 Myocardial infarction 60978817 Active ORTIZ BULLRIS [facility] 5 10:53:02 Benign essential hypertensio n 6462772 Active 2022 Heather Lujan MD [address] [place] [address], [phone], [facility] 3 09:40:33 Congestive heart failure 51658856 Active 2022 Heather Lujan MD [address] [place] [address], [phone], [facility] 3 09:40:45 Squamous cell carcinoma of skin 008281227 Active 2023 Heather Lujan MD [address] [place] [address], [address], [facility] 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 - The patient has a history of atrial fibrillation with rapid ventricular rate documented in June of the previous year. - He reported a recent increase in frequency of asthma attacks, often triggered by inhaling cleaning products or during mowing the grass without a mask. - The patient experienced a bout of shingles approximately a month prior to this visit, noting a painful rash on his side. - He has a history of coronary artery disease with eight high-grade lesions in the RCA and LAD, treated during previous coronary angiogram procedures. - He takes multiple cardiovascular medications, including Eliquis, atorvastatin, Plavix, Lasix, and lisinopril. He reports sometimes forgetting to take Eliquis as prescribed. - He notes being sensitive to environmental triggers and describes bouts of muscle spasms encountered during past episodes of shingles. - The patient has a history of essential hypertension and dyslipidemia, both of which are under treatment. 09/28/24: 9 month follow up ASHD/ AFIB/ HTN/ Dyslipidemia In May of this year, this patient was admitted to the hospital with a features of an acute non-ST elevation myocardial infarction and new onset of atrial fibrillation. Subsequent cardiac catheterization revealed high-grade lesions in the right coronary artery and the left and descending artery. He underwent a staged intervention of the RCA followed by LAD. In June of this year, he was was readmitted with atrial fibrillation with rapid ventricular rate. His medications were adjusted. Currently he seems to be doing okay with no specific complaints. He had some occasional nosebleed. Seems to be associated with upper respiratory infection. 67 year old male here for evaluation and treatment of CHF. He recently moved to the area from [place]. He started noticing swelling in legs and saw his PCP for the same. He underwent bilateral inguinal hernia and appendectomy recently. He quit drinking in and does not chew or smoke since early . His swelling has gone down and complains of some exertional SOB. EKG showed sinus rhythm, borderline axis deviation, non specific T wave abnormality. Father with h/o CABG in his late 50's. He underwent coronary angiogram for cardiomyopathy and underwent NEIL to the proximal LAD. 03/26/2023 His echo showed improved LV function. He wants to get clearance for FAA. 01/07/2024: Patient is a 68-year-old male patient of Dr. Nation; visit 03/26/2023. He presents today for 9-month follow-up of CAD, hypertension. He is feeling well. 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 06/18/2024: Castillo Leyva is a 68 year old male with past medical history of CAD with prior LAD stent presented yesterday to hospital with palpitations and tachycardia. He was found to be in A-fib with RVR. Has converted back to sinus rhythm and currently in sinus bradycardia. With palpitations he had significant chest pressure. Had some heartburn after returning to sinus rhythm. Initial troponin was 25 that trended up to 220 at 6 hours. Initial EKG showed atrial fibrillation with RVR with ST depressions. 06/25/2024: 68-year-old man with past medical history of hypertension, atrial fibrillation who had PCI of RCA last week when he had NSTEMI. Here for staged PCI of mid LAD. Patient had successful revascularization of LAD with 2 stents. In the evening of the procedure, patient started complaining of abdominal discomfort radiating to the throat after eating food. Troponins were mildly elevated. No EKG changes. Medicine team was consulted who did CT scan of abdomen and chest. No significant abnormalities were seen. After patient had bowel movement, his pain resolved. He was stable. Was recommended to stay for 1 night for observation but he was completely symptom free and wanted to go home. Patient was discharged home in a stable condition on Eliquis and Plavix. 07/01/2024: Patient is a 68-year-old male patient of Dr. Nation, switching to Dr. Granda. He presents today for follow-up of recent admission 06/17/2024 to 06/19/2024 for NSTEMI, PCI of the RCA. He returned for planned PCI of the LAD 06/24/2024. He was kept on triple therapy until after the LAD intervention, now on apixaban and Plavix. During admission 06/17/2024 he was found to be in atrial fibrillation with RVR, converted to sinus rhythm with diltiazem IV. Echocardiogram 06/18/2024: LVEF 55 to 60%, grade 1 diastolic dysfunction, mild LVH, mild mitral regurgitation, trace to mild tricuspid regurgitation. Mildly dilated aortic root 4.05 cm. No rapid heart rate since discharge, no chest pain. He notes a sensation of heartburn right after he went home, it was pretty severe but is gradually improving. He declines protonix. Allergies No Known Allergies Allergy (Verified 03/29/25 09:38) Home Medications - Last Reconciled 03/29/25 by Obdulia Montoya albuterol sulfate 90 mcg/actuation 2 puffs inhalation Q6H PRN apixaban (Eliquis) TAKE 1 TABLET BY MOUTH TWICE DAILY atorvastatin 40 mg PO QPM azithromycin take 500 mg today (day 1), then 250 mg for 4 days (days 2-5) PO clopidogrel 75 mg PO DAILY furosemide 40 mg PO DAILY gabapentin 100 mg PO BID lidocaine 5% 1 patch topical DAILY lisinopril 20 mg PO DAILY nitroglycerin 0.4 mg sublingual Q5M PRN valacyclovir (Valtrex) 1,000 mg PO TID PFSH PFSH: Medical History Atrial fibrillation with rapid ventricular response Dyslipidemia Atherosclerosis of coronary artery HTN (hypertension) NSTEMI (non-ST elevated myocardial infarction) Urinary tract infection Exertional shortness of breath CHF (congestive heart failure) Family history of ischemic heart disease and other diseases of the circulatory system Surgical History S/P appendectomy S/P hernia repair S/P knee surgery Family History Mother Congestive heart failure (CHF) Hypertension Father Myocardial infarction Hx of CABG Social History Smoking and tobacco/nicotine status: never used tobacco/nicotine Review of Systems General: Reports: 10 or more systems reviewed and unremarkable except as noted in History and below Narrative: - Cardiovascular: Reports known atrial fibrillation. Denies chest pain or palpitations. - Respiratory: Reports frequent asthma attacks triggered by exposure to allergens. - Dermatologic: Reports a past episode of shingles with a painful rash. - General: Denies current fatigue beyond typical overtiredness due to everyday life demands. - Peripheral Vascular: Reports presence of superficial varicose veins. - Musculoskeletal: Reports past muscle spasms associated with shingles. Card: Reports: dyspnea on exertion; Denies: chest pain, palpitations, irregular heart rhythm, swelling of feet/ankles, lightheadedness, syncope or pre-syncope Resp: Reports: dyspnea; Denies: productive cough or non-productive cough GI: Denies: hematochezia Higinio/Lymph: Denies: easy bleeding Vital Signs 09/28/24 10:30 01/29/25 13:59 03/29/25 09:40 Height 6 ft 6 ft 6 ft Weight 226 lb 230 lb BMI 30.6 31.1 BP 132/80 125/73 Blood Pressure Location Lt brachial Position Sitting Respiration 16 Pulse 74 58 L Pulse Source Pulse Oximeter Temp 98.0 F 97.8 F Pulse Oximetry (%) 92 93 Oxygen Delivery Method Room Air Physical Exam Narrative: EXAM NARRATIVE: GENERAL APPEARANCE: cooperative and comfortable. ORIENTATION: awake, oriented to person, place and to time. CHEST: normal inspection of the chest and normal palpation of entire chest wall, symmetrical chest wall rise. RESPIRATORY: normal respiratory effort, no retractions, no use of accessory muscles and clear to auscultation bilaterally, symmetric chest movement. CARDIAC: regular rate, regular rhythm, S1 normal heart sound present, S2 normal heart sound present, No gallops present, No clicks present, No murmurs present and No rub. radial pulses present. EXTREMITY: no pedal edema, presence of superficial varicose veins on ankles and feet. NEURO: patient oriented x3 and moves all extremities. Assessment & Plan Assessment & Plan (1) HTN (hypertension): Qualifiers: Hypertension type: primary hypertension Qualified Code(s): I10 - Essential (primary) hypertension Assessment & Plan: Assessment and Plan - 69-year-old male with a history of coronary artery disease and atrial fibrillation presenting for routine follow-up. - The patient's atrial fibrillation is being managed with Eliquis; however, medication adherence issues are present, and there is concern for stroke risk. He sometimes forgets evening dose, or takes two 5mg tabs in the morning. - History of asthma with current exacerbations related to environmental exposures. - Previous bout of shingles with notable pain was experienced recently. - Overall good control of hypertension and dyslipidemia with reported stable blood pressure. 1. Atrial Fibrillation - Continue current Eliquis 5 mg twice daily but emphasize adherence to prevent periods without anticoagulation, reducing stroke risk. - Discussed the importance of setting alarms or reminders to aid medication compliance. 2. Coronary Artery Disease - Continue atorvastatin 40 mg daily and Plavix 75 mg daily as prescribed for secondary prevention. - Blood pressure is controlled with lisinopril 20 mg daily. 3. Hypertension - Continue lisinopril 20 mg daily; blood pressure noted to be well-controlled during the visit. 4. Dyslipidemia - Continue atorvastatin 40 mg daily; patient compliance confirmed. 5. Asthma - Hr Recruiter patient on environment exposure mitigation, such as wearing a mask while mowing and avoiding specific motorcycle police. - Remain vigilant of asthma exacerbation and seek immediate advice if symptoms worsen. 6. Shingles - Education on shingles vaccination to prevent future outbreaks, given recurrence risk. 7. Varicose Veins - Regular assessment for persistent issues or complications. (2) Atherosclerosis of coronary artery: Qualifiers: Coronary Disease-Associated Artery/Lesion type: [place] artery [place] vs. transplanted heart: [place] heart Associated angina: without angina Qualified Code(s): I25.10 - Atherosclerotic heart disease of [place] coronary artery without angina pectoris (3) Atrial fibrillation with rapid ventricular response: (4) Dyslipidemia: (5) PAD (peripheral artery disease): Plan - Take Eliquis twice a day, setting an alarm as a reminder. - Wear a mask when exposed to allergens to prevent asthma attacks. - Discuss with the pharmacy about getting a shingles vaccine to prevent future occurrences. - Continue taking your regular medications as prescribed and check with your provider about any doubts regarding dosage. - Schedule a follow-up appointment if there are any changes in your condition. Cardiac Studies Cardiac Studies (HCS): Chest X-Ray 06/17/24 Echocardiogram 06/18/[address] 06/25/24 Echocardiogram Limited Views 11/08/22 Hat And Cap Opener Procedure 06/24/24 Electrocardiogram 06/24/24 Intake Visit Reasons: 6 month Pain scale (0-10 scale): 0 Is the reason for visit related to pain management?: No Allergies No Known Allergies Allergy (Verified 03/29/25 09:38) Home Medications Home Medications - Last Reconciled 03/29/25 by Obdulia Montoya albuterol sulfate 90 mcg/actuation 2 puffs inhalation Q6H PRN apixaban (Eliquis) TAKE 1 TABLET BY MOUTH TWICE DAILY atorvastatin 40 mg PO QPM azithromycin take 500 mg today (day 1), then 250 mg for 4 days (days 2-5) PO clopidogrel 75 mg PO DAILY furosemide 40 mg PO DAILY gabapentin 100 mg PO BID lidocaine 5% 1 patch topical DAILY lisinopril 20 mg PO DAILY nitroglycerin 0.4 mg sublingual Q5M PRN valacyclovir (Valtrex) 1,000 mg PO TID Followed by:: Tai GALAVIZ / harriet Annual Assessments Date Next Due Annual Assessment Dates Next Due: Date of Next Flu Assessment 07/14/25 Date of Next Suicide Risk Assessment 09/28/25 Date of Next Abuse Assessment 07/14/25 Quality Health Maintenance Does patient have any barriers to learning?: No Does patient have any communication needs?: Glasses Does patient use assistive: No Cane, No Walker, No Wheelchair, No Commode Chair, No Hospital Bed and No Respiratory Assist Device Medication Rec. Completed: Yes Cultural or Adventist Beliefs: No Date Next Due Annual Assessment Dates Next Due: Date of Next Flu Assessment 07/14/25 Date of Next Suicide Risk Assessment 09/28/25 Date of Next Abuse Assessment 07/14/25 History of Recent Travel Any recent travel in the last 8 weeks: No Smoking/Vaping Use Screening Smoking/Vaping use assessment performed: Yes Smoking/Vaping use: never smoked Suicide Risk Assessment Have you had little interest or pleasure in last 2 weeks?: Not At All Been feeling down, depressed, or hopeless over last 2 weeks?: Not At All Have you had Suicidal thoughts?: Not At All Total Score: 0 Patient score 3 or greater or had suicidal thoughts?: Negative Depression screening performed: Yes Fall Risk Assessment 1. Have you fallen in the last year?: No 2. Do you use a cane, walker, wheelchair, or crutch?: No 3.Do you lose your balance, feel confused, or dizzy?: No Coding Level of Care Code OFFICE/ OP VISIT EST LV 4 Diagnoses Primary hypertension I10 Hypertension type: primary hypertension Atherosclerosis of [place] coronary artery of [place] heart without angina pectoris I25.10 Coronary Disease-Associated Artery/Lesion type: [place] artery [place] vs. transplanted heart: [place] heart Associated angina: without angina Atrial fibrillation with rapid ventricular response I48.91 Dyslipidemia E78.5 PAD (peripheral artery disease) I73.9 Additional Codes Blood Pressure - Systolic Blood Pressure: Systolic <130 (58214344) Blood Pressure - Diastolic Blood Pressure: Diastolic <80 (33230563) Pain - Is Patient in Pain?: No ([id number]) Med Rec - Medication Rec. Completed: Yes (10251493) BMI - BMI Value: BMI Measured (24213971) Dictated By: Erendira Martinez Signed By: Signed Date/Time: 03/29/25 1356 DD/ 0744 Rupesh rajan [facility] 07/07/2025 13:23:45 Procedures Surgical History Date Name Laterality Status Provider Name and Address Organization Details Recorded Time 04/28/20 23 Laceration Repair completed TAISHA RAI-Agustín [address] [place] [address], [phone] 04/28/2023 17:24:32 Appendectomy completed SUPRIYA GEORGE [facility] 06/15/2024 15:11:35 hernia repair completed SUPRIYA GEORGE [facility] 06/15/2024 15:11:44 Imaging Results None recorded. Procedure Notes None recorded. Medical Equipment None Reported. Allergies Allergen ID Allergen Name Allergen Category Reaction Reaction Severity Criticality Documentation Date Start Date Code Code System Note Provider Name and Address Organization Details Recorded Time 72875 No known allergy (situatio n) Not available Not available Not available Not available 06/22/2024 53668 6003 SNOMED Chaparrita rajan [facility], [place] 4 11:03:30 No known drug allergies Medications Name Sig Start Date Stop Date Status Note LastModified by Organization Details LastModified Time furosemid e 40 mg tablet TAKE 2 TABLETS BY MOUTH ONCE DAILY active Not Available Not Available No t Available atorvasta tin 40 mg tablet TAKE 1 TABLET BY MOUTH IN THE EVENING active Not Available Not Available No t Available prednison e 10 mg tablet active Not Available Not Available Not Available doxycycli ne hyclate 100 mg capsule TAKE 1 CAPSULE BY MOUTH TWICE DAILY FOR 3 DAYS TAKE WITH FOOD AND A FULL GLASS OF WATER. MAY CAUSE SUN SENSITIV ITY 06/15 completed Not Available Not Available Not Available atorvasta tin 20 mg tablet TAKE 1 TABLET BY MOUTH AT BEDTIME 06/15 completed Not Available Not Available Not Available atorvasta tin 10 mg tablet TAKE 1 TABLET BY MOUTH AT BEDTIME 06/15 completed Not Available Not Available Not Available azithromy martha 250 mg tablet TAKE 2 TABLETS BY MOUTH ON DAY 1, AND THEN TAKE 1 TABLET BY MOUTH ONCE A DAY ON DAY 2 THROUGH DAY 5 06/17 completed Not Available Not Available Not Available valacyclo vir 1 gram tablet TAKE 1 TABLET BY MOUTH THREE TIMES DAILY 04/15 completed Not Available Not Available Not Available lisinopri l 20 mg tablet TAKE 1 TABLET BY MOUTH ONCE DAILY active Not Available Not Available No t Available prednison e 20 mg tablet TAKE 2 TABLETS BY MOUTH ONCE DAILY FOR 5 DAYS 01/04 completed Not Available Not Available Not Available potassium chloride ER 10 mEq tablet,ex tended release Take 1 tablet by mouth once daily 2024 active Not Available Not Available Not Avai lable clopidogr el 75 mg tablet TAKE 1 TABLET BY MOUTH ONCE DAILY active Not Available Not Available No t Available imiquimod 5 % topical cream packet START IN 4 WEEKS. APPLY TO AFFECTED AREA ON EAR FRIDAY THRU FRIDAY, OFF WEEKENDS , FOR 6 WEEKS. WILL CAUSE SKIN IRRITATI ON 08/20 /2024 completed Not Available Not Available Not Available triamcino lone acetonide 0.1 % topical ointment APPLY TWICE DAILY TO DRY AREAS ON ARMS FOR 3 WEEKS. USE NO MORE THAN 2 WEEKS PER MONTH FOR FLARES active Not Available Not Available No t Available lisinopri l 10 mg tablet TAKE 1 TABLET BY MOUTH ONCE DAILY 06/17 completed Not Available Not Available Not Available lidocaine 5 % topical patch APPLY ONE PATCH TOPICALL Y ONCE DAILY, LEAVE ON MOST PAINFUL AREA FOR UP TO 12 HOURS 04/15 completed Not Available Not Available Not Available nitroglyc mayi 0.4 mg sublingua l tablet DISSOLVE ONE TABLET UNDER THE TONGUE EVERY 5 MINUTES NEEDED FOR CHEST PAIN. DO NOT EXCEED A TOTAL OF 3 DOSES IN 15 MINUTES active Not Available Not Available No t Available budesonid e 0.5 mg/2 mL suspensio n for nebulizat ion ADD 1ML INTO NEILMED BOTTLE WITH SALINE PACKET AND DISTILLE D WATER; RINSE 1/2 BOTTLE THROUGH EACH NOSTRIL TWICE DAILY active Not Available Not Available No t Available mupirocin 2 % topical ointment APPLY TO LEFT EAR AND BEHIND LEFT EAR TWICE DAILY UNTIL HEALED 06/15 completed Not Available Not Available Not Available gabapenti n 100 mg capsule TAKE 1 CAPSULE BY MOUTH TWICE DAILY 04/15 completed Not Available Not Available Not Available albuterol sulfate HFA 90 mcg/actua tion aerosol inhaler INHALE 2 PUFFS BY MOUTH EVERY 4 HOURS NEEDED active Not Available Not Available No t Available ketoconaz ole 2 % topical cream APPLY TWICE DAILY TO RED SCALY AREAS ON FACE X3 WEEKS, THEN NEEDED FOR FLARES active Not Available Not Available No t Available cefdinir 300 mg capsule take 1 capsule BY MOUTH TWICE DAILY for 5 days 06/17 completed Not Available Not Available Not Available spironola ctone 50 mg tablet TAKE 1 TABLET BY MOUTH ONCE DAILY 06/15 completed Not Available Not Available Not Available amoxicill in 875 mg-potass ium clavulana te 125 mg tablet two times daily 01/01 completed Recorded 01/03/20 23 4:50PM by TAISHA Shell, Office Visit; Refill Quantity : 0; Not Available Not Available Not Available furosemid e daily 01/01 completed RM/AV; 9; Recorded 12/09/19 23 1:45PM by Supriya benjamin (Authori hirend through Hetaher Lujan MD), Refill Request; Refill Quantity : 60; Tablet; Not Available Not Available Not Available Eliquis 5 mg tablet TAKE 1 TABLET BY MOUTH TWICE DAILY active Not Available Not Available No t Available aspirin 81 mg capsule Take 1 capsule every day by oral route. 06/16 completed Not Available Not Available Not Available Vitals Date Recorded Body height Body mass index (BMI) Body weight Oxygen saturation Oxygen saturation in Arterial blood by Pulse oximetry Heart rate Systolic And Diastolic Provider Name and Address Organization Details Last Updated DateTime 4 182.88 cm 30.4 kg/m2 719274. 69 g 91 % 91 % 76 /min 116/60 mm[Hg] [facility] 4 10:44:24 Date Recorded Body height Body mass index (BMI) Body weight Heart rate Systolic And Diastolic Provider Name and Address Organization Details Last Updated DateTime 06/15/2024 182.88 cm 30.7 kg/m2 779446.8 8 g 72 /min 142/60 mm[Hg] SUPRIYA GEORGE [facility] 4 15:03:45 Date Recorded Body height Body mass index (BMI) Body weight Oxygen saturation Oxygen saturation in Arterial blood by Pulse oximetry Heart rate Systolic And Diastolic Provider Name and Address Organization Details Last Updated DateTime 5 182.88 cm 30.4 kg/m2 530140. 69 g 94 % 94 % 71 /min 130/70 mm[Hg] [facility] 5 11:05:08 Date Recorded Body height Body mass index (BMI) Body weight Oxygen saturation Oxygen saturation in Arterial blood by Pulse oximetry Heart rate Respiratory rate Systolic And Diastolic Provider Name and Address Organization Details Last Updated DateTime 4 182.88 cm 30.7 kg/m2 029028. 68 g 95 % 95 % 77 /min 20 /min 140/98 mm[Hg] Chaparrita Monteiro [facility] 4 11:13:12 Date Recorded Body height Body mass index (BMI) Body weight Oxygen saturation Oxygen saturation in Arterial blood by Pulse oximetry Heart rate Respiratory rate Systolic And Diastolic Provider Name and Address Organization Details Last Updated DateTime 5 182.88 cm 30.7 kg/m2 711573. 88 g 96 % 96 % 66 /min 18 /min 130/70 mm[Hg] Chaparrita Monteiro [facility], Sudha 5 12:18:06 Social History None recorded. Functional Status Question Answer Note LastModified by Organization D etails LastModified Time What is your level of alcohol consumption? None [email or web address] Information not available 06/15/2024 Mental Status None recorded. Family History Relationship Description Onset Age of this Age Resolved Age Notes LastModified by Organization Details LastModified Time Mother Heart disease [email or web address] Not available 06/15 15:12:48 Medical History Condition Response Coronary Artery Disease Y Other N Gout N Kidney Stones N Blood Diseases N Breast Cancer N Blood Transfusion N Depression N Lung Disease N Developmental or Behavioral Disorders N Defects or Inherited Disease N Breast Problem N Difficulty Swallowing N Anesthesia Complications N Anxiety Disorder N Meniere's disease N Muscle, Joint, or Bone Problems N Arthritis N Varicosities N Endometriosis N Bladder or Kidney Problems N Liver Disease N Headaches N Fibromyalgia N Kidney Disease N Allergies/Hayfever Y Ear or Hearing Problems N Hospitalizations N Thyroid Problems N GI Problems N ADD/ADHD N Eating Disorder N Anemia N Constipation N Mental Illness N Ovarian Cancer N Bedwetting N Seizures/Epilepsy N Tuberculosis N Eczema Y Diverticulitis N Abuse/Domestic Violence N Asthma Y Reflux/GERD N Hepatitis Y Pulmonary Embolism N Chronic Ear Infections N Pre-Eclampsia N Hypertension Y Chicken Pox Y Autism Spectrum Disorder (ASD) N Osteoporosis N Thrombophilias N Past Encounters Encounter ID Performer Location Encounter Start Date Encounter Closed Date Diagnosis/Indication Diagnosis SNOMED-CT Code Diagnosis ICD10 Code Diagnosis IMO Codes Diagnosis Note [id number] TAISHA CABRERA [facility] ([facility]) [address] [place] [address] 01/28/2023 17:04:56 02/05/2023 16:13:25 Renewal of prescription 497415048 Z76.0 Asthma 110582457 J45.90 [id number] TYREE RAI [facility] ([facility]) [address] [place] [id number] 04/28/2023 16:00:20 05/12/2023 12:24:24 Laceration of finger of left hand [id number] 3743921 S61.211A #4 sutures were placed, simple uninterrup enma. Discussed signs of infection including erythema, streaking, green/yell ow drainage, and fever. Encouraged patient to put triple antibiotic ointment on laceration and keep dressing on for 24 hours. Patient will return in 7-10 days for suture removal. If patient develops any signs of infection, will return sooner. Patient was not up to take on tetanus vaccine today. Declined tetanus booster. Discussed risks and benefits of tetanus vaccine with patient. X-ray negative for fracture of finger. Will send for over read. Will follow up for suture removal in 7-10 days, sooner if needed. [id number] TAISHA EVANS [facility] ([facility]) [address] [place] [id number] 01/02/2024 13:53:51 01/02/2024 15:05:22 Skin lesion 60593182 L98.9 Will have pt apply mupirocin for next week. F/u with PCP for possible bx. [id number] Heather Lujan MD [facility] ([facility]) [address] [place] [id number] 01/05/2024 10:34:18 01/05/2024 11:38:52 Squamous cell carcinoma of skin 436437596 C44.92 left posterior ear. Coronary arteriosclerosis 48191351 I25.10 stable by report. [id number] Heather Lujan MD [facility] ([facility]) [address] [place] [id number] 06/15/2024 14:56:54 06/18/2024 08:14:34 Benign essential hypertension 1532924 I10 Congestive heart failure 23669150 I50.9 stable at this time. Coronary arteriosclerosis 93625676 I25.10 stable by report. He sees cardiologi st. LDL was 58 in December of 2023. Idiopathic peripheral neuropathy 20483489 G60.9 mild, burning in his feet and he does not want any meds for this. [id number] Bo Arizmendi DO [facility] ([facility]) [address] [place] [id number] 06/22/2024 10:19:00 06/22/2024 14:22:37 Screening for malignant neoplasm of colon 123271850 Z12.11 Explained to pt we need to wait until after he has recovered and stabilized from recent cardiac events before we proceed with a screening colonoscop y, I do recommend he return for screening, will need cardiac clearance before we can proceed, blood thinners will need to be adjusted for procedure to be done. Advised pt d/w Cardiologi st at f/u needing scheduled for screening Colonoscop y and medication adjustment . [id number] Heather Lujan MD [facility] ([facility]) [address] [place] [id number] 06/17/2025 10:46:46 06/17/2025 11:45:04 Screening for malignant neoplasm of colon 675658938 Z12.11 Coronary atherosclerosis 688784833 I25.10 stable by report. He sees cardiologi st. LDL was 58 in December of 2023. Congestive heart failure 96910844 I50.9 stable at this time. Well adult 429680509 Z00 .00 [id number] Bo Arizmendi DO [facility] ([facility]) [address] [place] [id number] 07/04/2025 12:02:31 07/06/2025 09:11:28 Screening for malignant neoplasm of colon 513091090 Z12.11 07/04/25: I have reviewed and discussed colon cancer screening options, including colonoscop y. Discussed risks vs benefits including risk of infection and bleeding, perforatio n, possible need for surgery, reaction to medication s, and sever injury or . We discussed pt requiring sedation and possible general anesthesia . Pt agrees to proceed with Colonoscop y at [facility]. Preliminar y procedure date will be 08/25/25.- --- Will obtain recent Cardio note and have Cardio weigh in on stopping Eliquis for Colonoscop y procedure. Health Concerns Section Related Observation LastModified by Organization Detai ls LastModified Time None Recorded Concern Status LastModified by Organization Details LastModified Time None Recorded Advance Directives Directive None Recorded Payers Insurance Date Sequence Insurance Name Policy Number Policy Gonzalez Covered Member ID Gonzalez Member ID Guarantor Name 07/01/2025 1 [employer] (MEDICARE REPLACEMENT/ ADVANTAGE - PPO) Castillo Leyva [id number] Castillo Leyva 05/16/2025 1 [employer] (MEDICARE REPLACEMENT/ ADVANTAGE - HMO) Castillo Leyva [id number] Castillo Leyva Notes Date Note Type Note Provider Name and Address Organization Details Recorded Time 4 text/html General Rash/Skin LesionReported by PatientHPIFor quality, patient reportspainfulandsingle. For severity, patient reportsmild. For duration, patient reportshas noted for >3 months. For onset/timing, patient reportsgradual onset. For location, (back of left ear.). Was seen in walk in on 01/02/24 and was told to follow up. Heather Lujan MD [address] [place] [address], [phone], [facility], [facility] 01/05/2024 11:35:11 4 text/html Colonoscopy ScreeningReported by PatientROS as noted in the HPI The patient presents today at the request of Dr. Lujan for evaluation and discussion of colonoscopy for colon cancer screening. Pt states that he had appendectomy and hernia repair bilaterally in either 2020 or 2021 and bx of appendix was done and was recommended him to have colonoscopy done and never did get scheduled. The patient denies any recent abdominal pain, persistent diarrhea, persistent constipation, bloody or dark tarry stools, or mucusy stools. Last Colon Cancer screening: never Problems with anesthesia in the past: NONE Family History of Colon cancers: NONE Blood Thinners: Plavix, Eliquis, 81mg ASA Co-morbidities: Has appt for Angiogram this . Last Friday was in hospital admitted from ER for CP and Arrhythmia/Afib, had cath done with 1c cardiac stent placed, states left and right side heart was checked and they are going to look at right side again in 2 days. Bo Arizmendi DO [address] [place], [phone], [facility] 07/04/2024 16:58:45 5 text/html HyperlipidemiaReported by PatientHPIFor duration, patient reportschronic. For risk factors, patient reportshypertension. For control, patient reportsusually well controlled. For adherence to treatment plan, patient reportstakes medications as prescribed. Hypertension IM/FMReported by PatientHPIFor severity, patient reportsstage 2 (>140/>90 mmhg). For associated symptoms, patient reportspalpitationsbut reportsno shortness of breathandno chest pain. For quality, patient reportshere for check-up. For onset/timing, patient reportsgradual onset. For alleviating factors, patient reportsmedication. For self care, patient reportsnon-smoker. Has noticed his HR being elevated at times. Would like to have some labs done today. Heather Lujan MD [address] [place] [address], [phone], [facility] 06/17/2025 11:44:59 5 text/html Colonoscopy ScreeningReported by PatientColonoscopy ScreeningFor gi symptoms, patient reportsno abdominal pain,no diarrhea,no constipation,no recent change in bowel movements,no change in the stool,no color change in stool, andno rectal bleeding. For associated symptoms, patient reportsnormal appetite,no fever,no chills,no nausea, andno vomiting. For context, patient reportsno prior examination,no history of colon polyps, andno history of ulcerative colitis or crohn's disease. For family history, patient reportsno polypsandno colon cancer.ROS as noted in the HPI The patient presents today at the request of Dr. Lujan for evaluation and discussion of colonoscopy for colon cancer screening. The patient denies any recent abdominal pain, persistent diarrhea, persistent constipation, bloody or dark tarry stools, or mucusy stools. Last Colon Cancer screening: NONE Problems with anesthesia in the past: NONE Family History of Colon cancers: NONE Blood Thinners: Plavix 75 mg daily and Eliquis 5mg bid Co-morbidities: Afib, CHF, CAD, HLD, HTN. Afib is not constant as far as patient know. He last had cardiac stenting fall 2023, approx 1 year ago. Last saw Cardiology in the last 2-3 months. Bo Arizmendi, [address], [phone], [facility], Sudha 07/05/2025 15:00:40
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
== END 2025-08-06 15:00 | disposition home or self-care (01) ==
PROVIDERS: Emergency Provider Physician Assistant; PCP Family Medicine
DX: Z48.02 Encounter for removal of sutures (principal); Z79.01 Long term (current) use of anticoagulants; I25.10 Atherosclerotic heart disease of native coronary artery without angina pectoris; I11.0 Hypertensive heart disease with heart failure; I50.9 Heart failure, unspecified
CPT/HCPCS: 99281

== ENCOUNTER → 2025-08-10 14:09 | Outpatient (BNVA) | payer MEDICARE, SELFPAY | PROVIDERS: PCP Family Medicine; Visit Provider Nurse Practitioner | DX: R39.89 Other symptoms and signs involving the genitourinary system (principal) | CPT/HCPCS: 81000; 87086 ==